=== PATIENT | female | born 1990 | race Caucasian/White ===

== ENCOUNTER 2023-05-11 20:37 | Emergency (ER) | payer OTHER, SELFPAY ==
[2023-05-11 21:01] VITALS: BP 138/91; PULSE 108; RESP 18; TEMP 36.2; O2SAT 97; BMI 28.3
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
[2023-05-11 21:25] LABS: Eosinophils Absolute Auto 0.41 K/uL (0.00-0.50); Hematocrit 43.6 % (33.0-51.0); Immature Granulocytes Abs Auto 0.01 K/uL (0.00-0.30); Immature Granulocytes Pct Auto 0.1 %; Lymphocytes Percent Auto 25.1 % (20-44); Mean Corpuscular HGB Conc 34 gm/dL (32-36); Mean Corpuscular Hemoglobin 29 pg (26-34); Mean Corpuscular Volume 85 fL (80-100); Neutrophils Percent Auto 63.8 % (42.0-72.0); Platelet Count* 322 K/uL (140-440); RDW Coefficient of Variation % 12.3 % (11.5-15.5); Red Blood Count 5.16 m/uL (4.00-5.20); White Blood Count* 10.34 K/uL (4.50-11.00)
[2023-05-11 21:27] LABS: Chloride* 106 mmol/L (96-114); Potassium* 3.7 mmol/L (3.6-5.1); Sodium* 137 mmol/L (135-149)
[2023-05-11 21:30] LABS: Anion Gap 8 mEq/L (7-15); Blood Urea Nitrogen* 5 mg/dL (5-24); Calcium* 9.9 mg/dL (8.4-10.6); Carbon Dioxide* 23 mmol/L (20-32); Creatinine* 0.8 mg/dL (0.5-1.5); Est. Creatinine Clearance* 89.16; Estimated Glomerular Filt Rate 99 ml/min; Glucose* 100 mg/dL (60-115)
[2023-05-11 21:36] LABS: Slide Review Reflex No
[2023-05-11] MEDS: 0.9 % SODIUM CHLORIDE 1000 ml 1,000 ML IV ×2 (22:27→23:16)
[2023-05-11] MEDS: ONDANSETRON 2 MG/ML inj 4 MG IVP (22:28)
[2023-05-11] MEDS: diphenhydrAMINE 50 MG/ML inj 25 MG IVP (22:28)
[2023-05-11] MEDS: MORPHINE 4 MG/ML INJ IVP (23:16)
== END 2023-05-12 | disposition home or self-care (01) ==
PROVIDERS: Emergency Provider Family Medicine
DX: O21.9 Vomiting of pregnancy, unspecified (principal); E86.0 Dehydration; G43.909 Migraine, unspecified, not intractable, without status migrainosus; Z3A.08 8 weeks gestation of pregnancy
CPT/HCPCS: 36415; 80048; 84702; 85025; 96361; 96374; 96375; 99284; J1200; J2270; J2405; J7030

== ENCOUNTER 2023-05-17 12:11 | Outpatient (CLI) | payer OTHER, SELFPAY ==
--- NOTE | 2023-05-17 12:15 | CRLHL7_ITS ---
For Patients: As a result of the Century Cures Act, medical imaging exams and procedure reports are released immediately into your electronic medical record. You may view this report before your referring provider. If you have questions, please contact your health care provider. INDICATION: First trimester scan, establish dates. COMPARISON: None. TECHNIQUE: Real-time kamara-scale imaging of the pelvis was performed. FINDINGS: Sonographic imaging demonstrates a single living intrauterine gestation. The embryo demonstrates a regular cardiac rate measuring 174 beats per minute. The embryo`s crown-rump length measurement of 2.1 cm corresponds to a gestational age of 8 weeks 5 days with a sonographic due date of 12/22/2023. There is a normal-appearing yolk sac. There are no gross abnormalities noted within the embryo at this early state of development. The gestational sac has a normal appearance. There is a 2.7 x 1.2 x 0.7 cm right-sided perigestational hemorrhage. The amount of fluid within the sac appears appropriate for gestational age. The cervix is closed. The myometrium appears normal. The right ovary is normal. The left ovary is not visualized. There are no suspicious fluid collections noted in the cul-de-sac. IMPRESSION: Single living intrauterine with sonographic gestational age 8 weeks 5 days and sonographic due date 12/22/2023. Subchorionic hemorrhage measuring 2.7 x 1.2 x 0.7 cm. Dictated by Robi Hutchinson MD @ 05/17/2023 12:56:05 PM (Electronically Signed)
== END 2023-05-17 12:12 | disposition home or self-care (01) ==
LOC: US 12:12
PROVIDERS: Visit Provider Registered Nurse
DX: Z34.91 Encounter for supervision of normal pregnancy, unspecified, first trimester (principal)
CPT/HCPCS: 76817

== ENCOUNTER 2023-05-17 13:57 | Outpatient (CLI) | payer OTHER, SELFPAY ==
[2023-05-17 19:14] LABS: Chlamydia DNA Amplified* NOT DETECTED (No Detected); GC DNA Amplified* NOT DETECTED (No Detected)
== END 2023-05-17 13:58 | disposition home or self-care (01) ==
PROVIDERS: Visit Provider Registered Nurse
DX: Z34.91 Encounter for supervision of normal pregnancy, unspecified, first trimester (principal); Z3A.08 8 weeks gestation of pregnancy
CPT/HCPCS: 86592; 86703; 86762; 86787; 86803; 86850; 86900; 86901; 87086; 87340; 87491; 87591

== ENCOUNTER 2023-05-31 14:14 | Outpatient (CLI) | payer OTHER, SELFPAY | END 2023-05-31 14:15 | disposition home or self-care (01) | LOC: FRMREF 14:16 | PROVIDERS: Visit Provider Registered Nurse | DX: R10.2 Pelvic and perineal pain (principal) | CPT/HCPCS: 87086 ==

== ENCOUNTER 2023-07-09 14:33 | Outpatient (CLI) | payer OTHER, SELFPAY | END 2023-07-09 14:34 | disposition home or self-care (01) | LOC: NFLDREF 07-13 12:12 | PROVIDERS: Visit Provider Obstetrics & Gynecology | DX: Z34.92 Encounter for supervision of normal pregnancy, unspecified, second trimester (principal); O09.812 Supervision of pregnancy resulting from assisted reproductive technology, second trimester; Z3A.16 16 weeks gestation of pregnancy | CPT/HCPCS: 82728 ==

== ENCOUNTER 2023-08-17 07:59 | Outpatient (CLI) | payer OTHER, SELFPAY | END 2023-08-17 08:00 | disposition home or self-care (01) | LOC: NFLDREF 08-20 00:42 | PROVIDERS: Visit Provider Obstetrics & Gynecology | DX: R79.0 Abnormal level of blood mineral (principal) | CPT/HCPCS: 82728 ==

== ENCOUNTER 2023-08-31 09:58 | Outpatient (CLI) | payer OTHER, SELFPAY ==
[2023-08-31 10:13] VITALS: PULSE 77; O2SAT 99
[2023-08-31 10:16] VITALS: BP 117/72; PULSE 76
[2023-08-31 10:18] LABS: Appearance Urine Clear (Clear); Bilirubin Urine Negative (Negative); Blood Urine Negative (Negative); Color Urine Yellow (Yellow); Glucose Urine Negative (Negative); Ketones Urine Negative (Negative); Leukocyte Esterase Urine Negative (Negative); Nitrite Urine Negative (Negative); Protein Urine Negative (Negative); Urobilinogen Urine 0.2 (0.2-1.0)
[2023-08-31 10:34] VITALS: RESP 16; TEMP 36.7
--- NOTE | 2023-08-31 11:48 | PC.OBNST ---
NST Note NST Note Start: 08/31/23 10:02 Freq: ONCE Status: Active Protocol: Document 08/31/23 11:45 MMB (Rec: 08/31/23 11:48 MMB [id number]) NST Note 1 Para (# of births) 0 EDC 12/23/23 Gestational Age In Weeks & Days 23 Weeks & 5 Days Patient Presented with Complaint(s) of Pain,Other If Pain, describe location sharp intermittent left lower abdominal pain Other Complaints Cramping, lower back pain Reactive No Appropriate for Gestational Age Yes RN Lidia Sterling RN Date 08/31/23 Reactive No Appropriate for Gestational Age Yes AMPARO Gardiner RN Date 08/31/23 OB NST charge Yes Complete NST Note via Write Note Yes The provider's electronic signature indicates the NST is reactive/appropriate for gestational age. *Note to provider: If an addendum is required, open the patient's chart and click on the note under the Nurse/Allied Health tab.
== END 2023-08-31 11:15 | disposition home or self-care (01) ==
LOC: OB OUT 09:58 → OB 09:59
PROVIDERS: Visit Provider Obstetrics & Gynecology
DX: O47.02 False labor before 37 completed weeks of gestation, second trimester (principal); Z3A.23 23 weeks gestation of pregnancy
CPT/HCPCS: 59025; 81003; G0463

== ENCOUNTER 2023-09-11 15:35 | Outpatient (CLI) | payer OTHER, SELFPAY ==
[2023-09-11] VITALS (13 sets, daily range): BP systolic 110; BP diastolic 57; PULSE 69–88; RESP 16; TEMP 37.1; O2SAT 96–99
[2023-09-11 16:13] LABS: Appearance Urine Cloudy (Clear); Bilirubin Urine Negative (Negative); Blood Urine Negative (Negative); Color Urine Yellow (Yellow); Glucose Urine Negative (Negative); Ketones Urine Negative (Negative); Leukocyte Esterase Urine Negative (Negative); Nitrite Urine Negative (Negative); Protein Urine Negative (Negative); Specific Gravity Urine 1.015 (1.000-1.030); Urobilinogen Urine 0.2 (0.2-1.0)
[2023-09-11 16:41] LABS: Amnisure Rom* Negative
[2023-09-11 16:45] LABS: Bacteria Urine Moderate; RBC Urine 0-2 (0-2); WBC Urine 0-2 (0-5)
[2023-09-11 16:46] LABS: Coarse Granular Casts Urine Few
[2023-09-11 16:52] LABS: Clue Cells No Clue Cells Seen (None Seen); Trichomonas No Trichomonas Seen (None Seen); Yeast No Yeast Seen (None Seen)
--- NOTE | 2023-09-11 17:50 | PC.OBNST ---
NST Note NST Note Start: 09/11/23 16:18 Freq: ONCE Status: Active Protocol: Document 09/11/23 17:47 MMB (Rec: 09/11/23 17:49 MMB [id number]) NST Note 1 Para (# of births) 0 EDC 12/23/23 Gestational Age In Weeks & Days 25 Weeks & 2 Days Patient Presented with Complaint(s) of Leaking fluid Reactive Yes Appropriate for Gestational Age Yes RN Lidia Sterling RN Date 09/11/23 Reactive Yes Appropriate for Gestational Age Yes RN Lidia Maldonado RN Date 09/11/23 OB NST charge Yes Complete NST Note via Write Note Yes The provider's electronic signature indicates the NST is reactive/appropriate for gestational age. *Note to provider: If an addendum is required, open the patient's chart and click on the note under the Nurse/Allied Health tab.
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
[2023-09-12 22:25] LABS: Strep B DNA Probe Negative (Negative)
[2023-09-13 06:05] LABS: Strep B Susceptibility Needed? No
== END 2023-09-11 17:15 | disposition home or self-care (01) ==
LOC: OB OUT 15:35 → OB 15:36
PROVIDERS: Visit Provider Obstetrics & Gynecology
DX: O47.02 False labor before 37 completed weeks of gestation, second trimester (principal); Z3A.25 25 weeks gestation of pregnancy
CPT/HCPCS: 59025; 81003; 81015; 84112; 87081; 87086; 87186; 87210; 87653; G0463

== ENCOUNTER 2023-09-13 13:30 | Outpatient (RCR) | payer OTHER, SELFPAY ==
--- NOTE | 2023-09-07 08:18 | URNOTE ---
Per Sherman Hopson at [facility], prior authorization is not required for Iron Sucrose ([id number]). Call ref #[id number]
[2023-09-11 13:19] VITALS: BP 108/71; PULSE 99; RESP 16; TEMP 36.1; O2SAT 97
[2023-09-11] MEDS: IRON SUCROSE COMPLEX 200 MG in 0.9 % SODIUM CHLORIDE 100 ml 100 ML 440 MG IVPB (13:57)
[2023-09-11 14:42] VITALS: BP 112/72; PULSE 85; RESP 16; TEMP 36.8; O2SAT 96
[2023-09-11 15:04] VITALS: BP 103/64; PULSE 77; RESP 16; TEMP 36.9; O2SAT 97
[2023-09-13 13:29] VITALS: BP 140/71; PULSE 102; RESP 17; TEMP 36.3; O2SAT 96
[2023-09-13] MEDS: IRON SUCROSE COMPLEX 200 MG in 0.9 % SODIUM CHLORIDE 100 ml 100 ML 220 MG IVPB (14:14)
[2023-09-13 14:20] VITALS: BP 105/75; PULSE 94; RESP 16; O2SAT 98
[2023-09-13 14:36] VITALS: BP 111/73; PULSE 85; RESP 16; O2SAT 97
[2023-09-13 14:45] VITALS: BP 130/84; PULSE 109; RESP 18; TEMP 36.2; O2SAT 98
[2023-09-13 15:00] VITALS: BP 104/72; PULSE 92; RESP 18; O2SAT 97
--- NOTE | 2023-09-13 16:14 | ONC.NURNOTE ---
Iron Sucrose started at 1414. At 1420, pt alerted nursing that she felt very dizzy, warm, and nauseated. Iron stopped and pt lying left lateral. VSS. Patricia Strickland APRN at bedside. NS started. Dr. Parker (OB masonry inspector) notified and orders received to discontinue Iron and not restart and for pt to make a follow up appt with her OB physician. At 1505, pt feeling nauseated again, dizzy, stating something feels wrong. After discussing pt symptoms with Patricia Vick APRN, Dr. Parker notified again and she advised pt to go to the OB dept for observation. Report called to OB and pt transferred via wheelchair with her father present.
== END 2024-03-09 23:59 | disposition home or self-care (01) ==
LOC: CCIC 13:30
PROVIDERS: Visit Provider Clinical Nurse Specialist
DX: D50.9 Iron deficiency anemia, unspecified (principal)
CPT/HCPCS: 96361; 96365; 96374; 99213; G0463; J1756

== ENCOUNTER 2023-09-13 15:21 | Outpatient (CLI) | payer OTHER, SELFPAY ==
[2023-09-13] VITALS (14 sets, daily range): BP systolic 103–112; BP diastolic 56–65; PULSE 71–95; RESP 16; TEMP 37.1; O2SAT 98–99
[2023-09-13] MEDS: LACTATED RINGERS 500 ML 500 ML IV (15:46)
--- NOTE | 2023-09-13 18:32 | PC.OBNST ---
The provider's electronic signature indicates the NST is reactive/appropriate for gestational age. *Note to provider: If an addendum is required, open the patient's chart and click on the note under the Nurse/Allied Health tab.
== END 2023-09-13 18:20 | disposition home or self-care (01) ==
LOC: OB OUT 15:25 → OB 15:27
PROVIDERS: Visit Provider Obstetrics & Gynecology
DX: O99.012 Anemia complicating pregnancy, second trimester (principal); Z3A.25 25 weeks gestation of pregnancy
CPT/HCPCS: 59025; G0463; J7120

== ENCOUNTER 2023-09-19 08:13 | Outpatient (CLI) | payer OTHER, SELFPAY | END 2023-09-19 08:14 | disposition home or self-care (01) | LOC: NFLDREF 09-21 07:37 | PROVIDERS: Visit Provider Obstetrics & Gynecology | DX: O23.42 Unspecified infection of urinary tract in pregnancy, second trimester (principal) | CPT/HCPCS: 87086 ==

== ENCOUNTER 2023-10-01 08:50 | Outpatient (CLI) | payer OTHER, SELFPAY | END 2023-10-01 08:51 | disposition home or self-care (01) | LOC: NFLDREF 10-03 10:07 | PROVIDERS: Visit Provider Obstetrics & Gynecology | DX: O26.893 Other specified pregnancy related conditions, third trimester (principal); Z67.11 Type A blood, Rh negative; Z3A.28 28 weeks gestation of pregnancy | CPT/HCPCS: 86592; 86850 ==

== ENCOUNTER 2023-10-08 08:52 | Outpatient (CLI) | payer OTHER, SELFPAY | END 2023-10-08 08:53 | disposition home or self-care (01) | LOC: NFLDREF 10:38 | PROVIDERS: Visit Provider Obstetrics & Gynecology | DX: Z34.03 Encounter for supervision of normal first pregnancy, third trimester (principal) | CPT/HCPCS: 82951; 82952 ==

== ENCOUNTER 2023-10-15 14:27 | Outpatient (CLI) | payer OTHER, SELFPAY | END 2023-10-15 14:28 | disposition home or self-care (01) | PROVIDERS: Visit Provider Obstetrics & Gynecology | DX: O24.419 Gestational diabetes mellitus in pregnancy, unspecified control (principal) | CPT/HCPCS: 87086 ==

== ENCOUNTER 2023-10-29 12:51 | Outpatient (CLI) | payer OTHER, SELFPAY ==
--- NOTE | 2023-10-29 13:00 | US_ITS ---
Final Report Patient: DAINA AVILA Facility:?[facility] Patient ID:?[id number] Site Patient ID:?[id number]. Site :?1990 Study:?US OB Pelvis f/u growth-10/29/2023 1:44:26 PM Ordering Physician:DARÍO Final Report: INDICATION: Third trimester scan, evaluate growth. COMPARISON: 05/17/2023 TECHNIQUE: Real time kamara scale imaging of the fetus was performed. FINDINGS: Sonographic imaging demonstrates a single living intrauterine gestation. Fetus demonstrates a regular cardiac rate of 129 beats per minute. Fetus has a vertex position. The placenta lies anteriorly. Amniotic fluid volume appears normal and there is a single deepest vertical pocket: 7.6 cm. The estimated weight is 2285gm which lies at the 89th %. BPD and HC< 97th percentile. AC 89th percentile. FL 29th percentile. The HC/AC ratio measures 1.10 range (0.93-1.11). IMPRESSION: Sonographic gestational age 35 weeks 0 days and sonographic due date 12/03/2023. Sonographic age 20 days ahead of the clinical age. Estimated weight 89th percentile. Abdominal circumference 89th percentile. BPD and HC greater than 97th percentile. Dictated by Robi Hutchinson MD @ 10/30/2023 7:35:33 AM (Electronic Signature)
== END 2023-10-29 12:52 | disposition home or self-care (01) ==
LOC: US 12:51
PROVIDERS: Visit Provider Obstetrics & Gynecology
DX: Z34.93 Encounter for supervision of normal pregnancy, unspecified, third trimester (principal); Z3A.35 35 weeks gestation of pregnancy
CPT/HCPCS: 76816

== ENCOUNTER 2023-11-27 10:53 | Outpatient (CLI) | payer OTHER, SELFPAY ==
--- NOTE | 2023-11-27 11:00 | US_ITS ---
Patient: DAINA AVILA Facility:?[facility] Patient ID:?[id number] Site Patient ID:?[id number]. Site :?1990 Study:?US-OB Pelvis OB F/U with BPP-11/27/2023 12:12:50 PM Ordering Physician:Jeni Sanford Final Report: OBSTETRICAL ULTRASOUND LIMITED - BIOPHYSICAL PROFILE, 11/27/2023 INDICATION: Advanced maternal age, gestational diabetes mellitus. PA by LMP: 12/23/2023 Gestational age: 36 weeks 2 days COMPARISON: 10/29/2023 TECHNIQUE: Transabdominal obstetrical ultrasound. FINDINGS: Gestation: Single Cervix: Not visualized positioning: Vertex Amniotic fluid: 7.4 cm SDP BIOPHYSICAL PROFILE: Gross body movements: 2 tone: 2 Respiratory activity: 2 Amniotic fluid SDP: 2 Total score: 8/8 Placenta position: Anterior heart rate: 144 bpm BIOMETRY: BPD: 9.87 cm, 40 weeks 3 days, >97% HC: 36.35 cm, out of range, >97% AC: 34.86 cm, 38 weeks 5 days, >97% FL: 7.06 cm, 36 weeks 1 day, 47.7% FL/AC Ratio: 20.25% HC/AC ratio: 1.04 EFW: grams, 8 lbs. 0 oz. age by this ultrasound: 38 weeks 3 days PA by this US: 12/08/2023 Percentile by PA: >97% IMPRESSION: 1. Estimated weight is greater than the 97th percentile. 2. Biophysical profile score is 8/8. OVIDIO GRIFFITH M.D. Body/Diagnostic Radiologist [email or web address]:gloria D& Transcribed: 11:[address]/Dictated by: Ovidio Griffith MD @ 11/28/2023 9:33:00 AM Signed by:Tameka Griffith MD @11/28/2023 12:27:04 PM (Electronic Signature)
== END 2023-11-27 10:54 | disposition home or self-care (01) ==
LOC: US 10:53
PROVIDERS: Visit Provider Obstetrics & Gynecology
DX: O09.513 Supervision of elderly primigravida, third trimester (principal); O24.419 Gestational diabetes mellitus in pregnancy, unspecified control; Z3A.36 36 weeks gestation of pregnancy
CPT/HCPCS: 76816; 76819

== ENCOUNTER 2023-11-27 13:14 | Outpatient (CLI) | payer OTHER, SELFPAY ==
[2023-11-28 14:13] LABS: Strep B DNA Probe Negative (Negative)
[2023-11-28 14:23] LABS: Strep B Susceptibility Needed? No
== END 2023-11-27 13:15 | disposition home or self-care (01) ==
LOC: NFLDREF 13:15
PROVIDERS: Visit Provider Obstetrics & Gynecology
DX: Z34.03 Encounter for supervision of normal first pregnancy, third trimester (principal)
CPT/HCPCS: 87081; 87653

== ENCOUNTER 2023-12-04 12:58 | Outpatient (CLI) | payer OTHER, SELFPAY ==
--- NOTE | 2023-12-04 13:00 | US_ITS ---
Patient: DAINA AVILA Facility:?[facility] Patient ID:?[id number] Site Patient ID:?[id number]. Site :?1990 Study:?US-OB Pelvis OB BPP-12/04/2023 1:45:12 PM Ordering Physician:?GREG SHEPHERD M.D. Final Report: INDICATION: Gestational diabetes COMPARISON: 11/27/2023 TECHNIQUE: Real time kamara scale imaging of the fetus was performed. Without non-stress testing. FINDINGS: Sonographic imaging demonstrates a single living intrauterine gestation. Fetus demonstrates a regular cardiac rate of 173 beats per minute. Fetus has a vertex position. The amniotic fluid volume appears normal and there is a single deepest pocket measurement of 7.5 cm. The fetus was active and demonstrated normal breathing movements. There was normal flexion and extension of the trunk and extremities. IMPRESSION: Normal biophysical profile score of 8 out of 8. Dictated by Robi Hutchinson MD @ 12/06/2023 5:47:21 AM Signed by:?Robi Hutchinson MD @12/06/2023 5:47:21 AM (Electronic Signature)
== END 2023-12-04 12:59 | disposition home or self-care (01) ==
LOC: US 12:58
PROVIDERS: Visit Provider Obstetrics & Gynecology
DX: O24.419 Gestational diabetes mellitus in pregnancy, unspecified control (principal)
CPT/HCPCS: 76819

== ENCOUNTER 2023-12-09 12:23 | Outpatient (CLI) | payer OTHER, SELFPAY ==
[2023-12-09 12:36] VITALS: BP 124/73; PULSE 93
[2023-12-09 14:00] VITALS: RESP 18; TEMP 36.9
--- NOTE | 2023-12-09 18:58 | PC.OBNST ---
NST Note NST Note Start: 12/09/23 12:39 Freq: ONCE Status: Active Protocol: Document 12/09/23 15:15 Asad (Rec: 12/09/23 18:58 MILKA [id number]) NST Note 1 Para (# of births) 0 EDC 12/23/23 Gestational Age In Weeks & Days 38 Weeks & 0 Days Patient Presented with Complaint(s) of Contractions/cramping Reactive Yes Appropriate for Gestational Age Yes RN Mariah Mathur RN Date 12/09/23 Reactive Yes Appropriate for Gestational Age Yes AMPARO Xie RN Date 12/09/23 OB NST charge Yes Complete NST Note via Write Note Yes The provider's electronic signature indicates the NST is reactive/appropriate for gestational age. *Note to provider: If an addendum is required, open the patient's chart and click on the note under the Nurse/Allied Health tab.
== END 2023-12-09 15:15 | disposition home or self-care (01) ==
LOC: OB OUT 12:24 → OB 12:24
PROVIDERS: Visit Provider Obstetrics & Gynecology
DX: O47.1 False labor at or after 37 completed weeks of gestation (principal); Z3A.38 38 weeks gestation of pregnancy
CPT/HCPCS: 59025; G0463

== ENCOUNTER 2023-12-14 11:00 | Outpatient (CLI) | payer OTHER, SELFPAY ==
--- NOTE | 2023-12-14 11:00 | US_ITS ---
Patient: DAINA AVILA Facility:?[facility] Patient ID:?[id number] Site Patient ID:?[id number]. Site :?1990 Study:?US-OB Pelvis OB BPP & F/U GROWTH-12/14/2023 12:16:23 PM Ordering Physician:?CHRISTINA MIKE M.D. Final Report: INDICATION: Gestational diabetes TECHNIQUE: Real time kamara scale imaging of the fetus was performed. COMPARISON: 11/27/2023 FINDINGS: Sonographic imaging demonstrates a single living intrauterine gestation. Fetus demonstrates a regular cardiac rate of 134 beats per minute. Fetus has a vertex position. The placenta lies posterior. Amniotic fluid volume appears increased and there is a single deepest pocket of 10.3 cm. ELIDA 32.8 cm. The estimated weight is 4924gm which lies at the greater than 97th %. On the prior OB ultrasound dated 11/27/2023 the estimated weight was at the greater than 97th percentile. BPD, HC and AC greater than 97th percentile. FL 77th percentile. The fetus was active. Absent normal breathing movements. There was normal flexion and extension of the trunk and extremities. IMPRESSION: Biophysical profile 02/01. Polyhydramnios. Sonographic gestational age 39 weeks 4 days and sonographic due date of 12/17/2023. Sonographic age is 6 days ahead of the clinical age. Estimated weight greater than 97th percentile, 10 pounds 14 ounces. BPD/HC/AC greater than 97th percentile. Dictated by Robi Hutchinson MD @ 12/14/2023 12:47:08 PM Signed by:?Robi Hutchinson MD @12/14/2023 12:47:08 PM (Electronic Signature)
== END 2023-12-14 11:01 | disposition home or self-care (01) ==
LOC: US 11:01
PROVIDERS: Visit Provider Obstetrics & Gynecology
DX: O24.419 Gestational diabetes mellitus in pregnancy, unspecified control (principal); Z3A.39 39 weeks gestation of pregnancy
CPT/HCPCS: 76816; 76819

== ENCOUNTER 2023-12-17 05:18 | Inpatient (IN) | payer OTHER, SELFPAY ==
[2023-12-17] VITALS (38 sets, daily range): BP systolic 100–128; BP diastolic 61–87; PULSE 53–88; RESP 16–18; TEMP 36.3–36.8; O2SAT 95–100; BMI 31.5
[2023-12-17] MEDS: LACTATED RINGERS 1000 ML 1,000 ML IV ×2 (05:45→07:10)
[2023-12-17 06:11] LABS: Hemoglobin* 12.3 gm/dL (12.0-16.0)
[2023-12-17 06:22] LABS: Hematocrit 38.1 % (33.0-51.0); Mean Corpuscular HGB Conc 32 gm/dL (32-36); Mean Corpuscular Hemoglobin 27 pg (26-34); Mean Corpuscular Volume 84 fL (80-100); Platelet Count* 208 K/uL (140-440); Red Blood Count 4.55 m/uL (4.00-5.20); White Blood Count* 9.67 K/uL (4.50-11.00)
[2023-12-17 06:23] LABS: Slide Review Reflex No
[2023-12-17] MEDS: CEFAZOLIN 2 GM INJ IVP (08:25)
--- NOTE | 2023-12-17 09:45 | W.ANESCHARGE ---
Anesthesia Charges Start Date/Time Anesthesia Start Date: 12/17/23 Anesthesia Start Time: 08:11 Stop Date/Time Anesthesia Stop Date: 12/17/23 Anesthesia Stop Time: 09:44
--- NOTE | 2023-12-17 10:02 | P.NB_ITS ---
Nerve Block Nerve Block Time Seen by Provider: 09:33 Date Seen: 12/17/23 Type of block requested by surgeon for post-operative analgesia: TAP Side: bilateral Time out performed: Yes Verification of patient name: Yes Verification of date of : Yes Site marking: site marked Name of person performing procedure: Dileep Continuous monitoring Was continuous monitoring of O2 sat, B/P, vehicle monitor technician, recorded every 15 minutes?: Yes Procedure Checklist: sterile prep, needles and gloves Ultrasound guided. Images saved: Yes Medications given in 5ml increments after negative aspiration: Marcaine %: 0.25 mL: 30 Needle gauge: 20 and Exparel mL: 10 Patient tolerated procedure well: Yes Additional comments: Needle noted between internal oblique and transversus abdominus. Local spread visualized Block Charges Block Charge (with Pro Fee): TAP Bilateral Use of Ultrasound Machine for Block: Yes- US Guidance/pain block
--- NOTE | 2023-12-17 10:03 | W.ANESCHARGE ---
Anesthesia Charges Start Date/Time Anesthesia Start Date: 12/17/23 Anesthesia Start Time: 08:11 Stop Date/Time Anesthesia Stop Date: 12/17/23 Anesthesia Stop Time: 09:44
[2023-12-17] MEDS: METHYLERGONOVINE MALEATE 0.2 MG/ML INJ IM (10:54)
[2023-12-17] MEDS: miSOPROStoL 800 MCG/4 TABLET PR (11:00)
[2023-12-17] MEDS: ONDANSETRON 2 MG/ML inj 4 MG IVP ×2 (11:40→16:27)
[2023-12-17] MEDS: LACTATED RINGERS 1000 ML 1,000 ML 125 ML IV ×2 (12:01→20:19)
[2023-12-17] MEDS: SCOPOLAMINE 1 MG/3 DAY PATCH 1 PATCH TRANSDERMA (12:36)
[2023-12-17 12:59] LABS: Basophils Percent Auto 0.1 % (0.0-3.0); Eosinophils Percent Auto 0.1 % (0.0-7.0); Hematocrit 36.7 % (33.0-51.0); Immature Granulocytes Pct Auto 1.1 %; Lymphocytes Percent Auto 3.9 % (20-44); Mean Corpuscular HGB Conc 33 gm/dL (32-36); Mean Corpuscular Hemoglobin 27 pg (26-34); Mean Corpuscular Volume 84 fL (80-100); Monocytes Percent Auto 4.7 % (0.0-11.0); Neutrophils Percent Auto 90.1 % (42.0-72.0); Platelet Count* 191 K/uL (140-440); RDW Coefficient of Variation % 13.8 % (11.5-15.5); Red Blood Count 4.38 m/uL (4.00-5.20); White Blood Count* 19.34 K/uL (4.50-11.00)
[2023-12-17 13:03] LABS: Slide Review Reflex No
[2023-12-17] MEDS: ACETAMINOPHEN 500 MG TABLET 1000 MG PO ×2 (14:37→22:49)
[2023-12-17] MEDS: KETOROLAC 30 MG/ML inj IVP ×2 (15:31→21:19)
[2023-12-17] MEDS: SODIUM CHLORIDE 0.9 % (FLUSH) 10 ML SYRINGE IVF (15:32)
--- NOTE | 2023-12-17 17:33 | P.OBPRC_ITS ---
Procedure Date of procedure: 12/17/23 Pre-op diagnosis: 39 weeks gestation. Gestational diabetes. Suspected macrosomia with EFW 4924 g last week Post-op diagnosis: same Procedure Done: Global Will [facility] bill your pro fee for this procedure?: Yes Blood Loss Measurement Type: EBL (500) Bakri Used: No IV fluids (mL): 1,000 Surgeon: Alba Syed MD Anesthesia Type: Spinal and TAP Block Findings: 1. Male infant, cephalic OA presentation, Apgars of 8 and 8, weight 4330 g. 2. Normal appearance of uterus, bilateral tubes and ovaries. Procedure Name: Primary low-transverse section Procedure Description: Patient was taken to the operating room with IV running. She received cefazolin in preoperative prophylaxis. Spinal anesthesia was administered. Hernandez catheter was inserted. She was prepped and draped in the usual sterile fashion. Anesthesia was tested and found to be adequate. A low-transverse skin incision was made with a scalpel and carried through to the underlying layer of fascia with the scalpel. The subcutaneous fat was dissected off the underlying fascia with Bovie. The fascia was nicked in the midline with a scalpel, and this incision was extended laterally with scissors. The rectus muscles were in the midline. Peritoneum was identified and entered bluntly. Bovie was used to widen this opening laterally. The bladder reflection was found to be well below the planned site for hysterotomy. Low-transverse uterine incision was made with a scalpel. Incision was widened bluntly. The infant's head was grasped through the hysterotomy and delivered with the help of fundal pressure. The remainder of the body delivered without incident. Cord was clamped and cut after 30 seconds. Infant was handed off to attending nurses. Cord blood was collected. The placenta was delivered with gentle traction on the cord. The uterus was exteriorized and cleaned of all clots and debris with the dry lap pad. The hysterotomy was reapproximated with 0 Vicryl in a running, locked fashion. Additional sutures were required along the leftward aspect of the hysterotomy, where there was a superficial hematoma, to obtain hemostasis. An additional [id number]-[id number] suture was used near the rightward aspect of the hysterotomy as well. The adnexa were examined and noted to be normal in appearance. The cul-de-sac was cleansed with dampened laparotomy sponge and the uterus was returned to the abdomen. The gutters were cleansed with dampened laparotomy sponge, removing any further clots and debris. The hysterotomy was reexamined and found to be hemostatic. The peritoneum was reapproximated with 2 0 Vicryl in a running fashion. The rectus muscles were examined and found to be hemostatic. The fascia was reapproximated with 0 Vicryl in a running fashion. Subcutaneous fat was irrigated and Bovie used on oozing vessels. The subcutaneous fat was reapproximated with 2 0 plain gut suture in an interrupted fashion. The skin was closed with a subcuticular stitch of 4-0 Monocryl. Surgical glue was applied above this. Patient tolerated procedure well was taken to recovery area in stable condition. Complications: None Pathology: specimen obtained, sent to pathology (Placenta) Surgery Debrief Performed: Yes Surgery Debrief Comment: Verbal did brief performed after completion of cesareans, confirming pathology specimen to be sent Condition: stable Disposition: floor Infant total score - 1 minute: 8 total score - 5 minute: 8
[2023-12-18] VITALS (12 sets, daily range): BP systolic 95–97; BP diastolic 59–62; PULSE 63–70; RESP 15–16; TEMP 36.8; O2SAT 96–98
[2023-12-18] MEDS: hydrOXYzine pamoate 25 MG CAPSULE 100 MG PO (01:12)
[2023-12-18] MEDS: KETOROLAC 30 MG/ML inj IVP ×3 (03:49→15:15)
[2023-12-18] MEDS: ACETAMINOPHEN 500 MG TABLET 1000 MG PO ×4 (04:28→23:08)
[2023-12-18 06:19] LABS: Hemoglobin* 9.2 gm/dL (12.0-16.0)
[2023-12-18] MEDS: SODIUM CHLORIDE 0.9 % (FLUSH) 10 ML SYRINGE IVF (09:46)
[2023-12-18] MEDS: DOCUSATE SODIUM 100 MG CAPSULE PO (09:46)
--- NOTE | 2023-12-18 11:30 | PM.OBPNVD1 ---
OB - PN:Subj Subjective Date Seen: 12/18/23 Patient comments OB post-: no complaints, pain well controlled, tolerating diet and flatus present [place] status: and doing well [place] feeding status: exclusively Narrative: Oneida is a 33 y.o. who was admitted to [facility] & D for primary C/S for suspected macrosomia.? She had an uncomplicated primary .? ? The patient feels well.? The pain is well controlled with current medications.? She has no new complaints.? She is breast feeding and reports things are going well.? the patient has done well.?She did have significant nausea and vomiting after her surgery but feels better this morning and has been able to eat breakfast. Vitals have been stable.? She has remained afebrile.? Has a good appetite, is tolerating a general diet.? She is voiding without difficulty.? She is passing gas and has not had a bowel movement.? She is ambulating and denies any dizziness.? Has Small amount of rubra lochia.? OB - PN: Obj Exam Physical Exam: Vital signs: Temp Pulse Resp BP Pulse Ox O2 Del Method 98.3 F 63 16 95/59 L 97 Room Air 12/18/23 08:13 12/18/23 08:13 12/18/23 08:13 12/18/23 08:13 12/18/23 03:45 12/18/23 08:13 Narrative: GENERAL APPEARANCE:? normal affect, alert, no distress MOOD:? appropriate CHEST:? clear to auscultation HEART:? regular rate and rhythm ABDOMEN:? soft, non-tender the uterine fundus is firm1 cm below Umbilicus, Midline and is appropriate for the stage of recovery. EXTREMITIES:? normal and trace edema Incision: Dressing is clean dry and intact. Urinary Catheter Management: Urethral: Cath placed during this visit: yes, but has since been removed by the nurse Reason for continuing: decision to DC catheter Insertion date: 12/17/23 Insertion time: 08:25 Removal date: 12/18/23 Removal time: 04:30 OB - PN: Obj Data Labs Labs: Laboratory Results - last 24 hr 12/17/23 12/17/23 12/18/23 05:58 12:48 06:06 WBC 19.34 H RBC 4.38 Hgb 12.0 9.2 L Hct 36.7 MCV 84 MCH 27 MCHC 33 RDW Coeff of Yessica 13.8 Plt Count 191 Neut % (Auto) 90.1 H Lymph % (Auto) 3.9 L [place] % (Auto) 4.7 Eos % (Auto) 0.1 Baso % (Auto) 0.1 Neut # (Auto) 17.40 H Lymph # (Auto) 0.80 L [place] # (Auto) 0.90 Eos # (Auto) 0.00 Baso # (Auto) 0.00 Abs Immat Gran (auto) 0.20 Imm/Tot Granulo (auto) 1.1 Antibody Identification Anti-D OB - PN: A/P Delivery Assessment and Plan (1) care and examination immediately after delivery: Status: Acute (2) Lactating mother: Status: Acute (3) Acute anemia: Status: Acute Plan day: 1 Plan: routine care Comments: Assessment/Plan?G 1 P 1 status post uncomplicated primary .? ?? 1.? Continue route PP cares? 2.? .? May see if desired? 3.? Anticipate discharge home tomorrow or the following day per pt preference? 4.? Acute anemia.? Iron supplement ordered?
[2023-12-18] MEDS: FLUOXETINE HCL 20 MG CAPSULE PO (15:46)
--- NOTE | 2023-12-18 18:18 | PC.NURSE ---
shift note: pt showered and ambulated in [place] with family. pt had small amount of lochia rubra on pad prior to shower. No clots noted on assessment. Fundus massaged and brought back to below umbilicus. Ky's sign negative. pt rating abd pain 3-6/10. pt describes pain as a burning. pt medicated with toradol and tylenol with relief. Pt voiding and passing flatus. IV dc'd intact Rt FA
[2023-12-18] MEDS: IBUPROFEN 600 MG TABLET PO (21:41)
[2023-12-18] MEDS: polyethylene glycoL 3350 17 GM PACK PO (21:55)
[2023-12-19 00:32] LABS: Rapid Plasma Reagin (RPR) Non Reactive (Non Reactive)
[2023-12-19] MEDS: OXYCODONE 5 MG TABLET PO ×3 (01:54→21:36)
[2023-12-19 02:29] VITALS: BP 100/66; PULSE 81; RESP 16; O2SAT 99
[2023-12-19] MEDS: IBUPROFEN 600 MG TABLET PO ×3 (04:01→17:53)
[2023-12-19 07:36] LABS: Glucose 2 Hour 147 mg/dl (70-155)
[2023-12-19] MEDS: SIMETHICONE 80 MG TAB.CHEW PO (07:39)
[2023-12-19] MEDS: ACETAMINOPHEN 500 MG TABLET 1000 MG PO ×3 (07:39→19:28)
--- NOTE | 2023-12-19 07:39 | P.OBPN_ITS ---
OB - PN:Subj Subjective Date Seen: 12/19/23 Patient comments OB post-: no complaints, pain well controlled, tolerating diet and flatus present [place] status: and doing well [place] feeding status: exclusively Narrative: The patient feels well.? The pain is well controlled with current medications.? She has no new complaints.? Urinary output is adequate and she is voiding w ithout difficulty.? Has a good appetite, is tolerating a general diet, is passing flatus, and has not had a bowel movement.?She is requesting simethicone as she feels she is not passing as much as previously. Has scant amount of rubra lochia.? She is ambulating well.?She is and working with the nurses to work on a better latch. Plans to see today. She plans to discharge tomorrow. She is anemic but declines oral iron as she states that in it caused nausea and vomiting. She is feeling occasionally light headed but feels that it could be related to lack of sleep. Encouraged to increase iron rich food and discussed that could consider IV iron if symptoms increase or do not resolve. OB - PN: Obj Exam Physical Exam: Vital signs: Temp Pulse Resp BP Pulse Ox O2 Del Method 98.2 F 81 16 100/66 99 Room Air 12/18/23 15:24 12/19/23 02:29 12/19/23 02:29 12/19/23 02:29 12/19/23 02:29 12/19/23 02:29 Narrative: GENERAL APPEARANCE:? normal affect, alert, no distress? MOOD:? appropriate? CHEST:? clear to auscultation and percussion? HEART:? regular rate and rhythm? ABDOMEN:? soft, non-tender the uterine fundus is U/2 and is appropriate for the stage of recovery.? EXTREMITIES:? normal and no edema? Urinary Catheter Management: Urethral: Cath placed during this visit: yes, but has since been removed by the nurse Reason for continuing: decision to DC catheter Insertion date: 12/17/23 Insertion time: 08:25 Removal date: 12/18/23 Removal time: 04:30 OB - PN: Obj Data Labs Labs: Laboratory Results - last 24 hr 12/17/23 12/19/23 05:58 07:06 Glucose Tolerance RPR Screen Non Reactive OB - PN: A/P Delivery Assessment and Plan (1) care and examination immediately after delivery: Status: Acute (2) Lactating mother: Status: Acute (3) Acute anemia: Status: Acute Plan day: 1 Plan: routine care Comments: Anticipate discharge tomorrow.
[2023-12-19] MEDS: FLUOXETINE HCL 20 MG CAPSULE PO (07:40)
[2023-12-19] MEDS: DOCUSATE SODIUM 100 MG CAPSULE PO (07:40)
[2023-12-19 08:00] VITALS: BP 104/68; PULSE 73; RESP 16; O2SAT 98
[2023-12-19 14:06] VITALS: BP 98/66; PULSE 73; RESP 16; TEMP 36.8; O2SAT 98
[2023-12-19 18:19] VITALS: BP 121/76; PULSE 72; RESP 16; TEMP 36.4; O2SAT 99
[2023-12-19] MEDS: polyethylene glycoL 3350 17 GM PACK PO (19:38)
[2023-12-20 00:09] VITALS: BP 118/78; PULSE 84; RESP 20; TEMP 36.8; O2SAT 96
[2023-12-20] MEDS: IBUPROFEN 600 MG TABLET PO ×2 (00:13→06:38)
[2023-12-20] MEDS: ACETAMINOPHEN 500 MG TABLET 1000 MG PO (04:48)
[2023-12-20 04:55] VITALS: BP 110/71; PULSE 71; RESP 18; TEMP 36.4; O2SAT 98
[2023-12-20] MEDS: DOCUSATE SODIUM 100 MG CAPSULE PO (06:37)
[2023-12-20] MEDS: FLUOXETINE HCL 20 MG CAPSULE PO (06:38)
--- NOTE | 2023-12-20 08:25 | P.DS_ITS ---
DS: Providers Provider Date Seen: 12/20/23 Date of admission: 12/17/23 05:18 Primary care physician: Not a Local Provider Admitting Clinician: Alba Syed MD Attending Physician on discharge: Dee Black CNM Date of Discharge: 12/20/23 DS: Diagnosis Discharge Diagnosis (1) Lactating mother: Status: Acute (2) care and examination immediately after delivery: Status: Acute (3) Acute anemia: Status: Acute Exam Narrative: Exam Narrative: VSS. ?Afebrile GENERAL APPEARANCE: ?normal affect, alert, no distress MOOD: ?appropriate HEENT: normocephalic, neck supple, full ROM CHEST: ?Symmetrical chest wall movement. ?Normal respiratory effort. ?Clear to auscultation HEART: ?regular rate and rhythm ABDOMEN: ?soft, non-tender. Uterine fundus is firm, at Umbilicus, Midline and is appropriate for the stage of recovery. ?Bowel sounds present. EXTREMITIES: ?normal and no edema SKIN: warm, dry. ? ?Incision clean/dry/well approximated. ?No signs of infection noted. Const: Vital Signs, click to edit/add: Vital Signs - 24 hr 12/19/23 14:06 12/19/23 18:19 12/20/23 00:09 Temperature 98.2 F 97.5 F L 98.2 F Pulse Rate [Pulse Oximeter] 73 72 84 Respiratory Rate 16 16 20 Blood Pressure [Le ft Arm] 98/66 121/76 118/78 Pulse Oximetry 98 99 96 Oxygen Delivery Me thod Room Air Room Air Room Air 12/20/23 04:55 Temperature 97.5 F L Pulse Rate [Pulse Oximeter] 71 Respiratory Rate 18 Blood Pressure [Le ft Arm] 110/71 Pulse Oximetry 98 Oxygen Delivery Me thod Room Air Documenting provider has reviewed patient's vital signs: yes OB - DS: Summary Hospital Course Hospital Course: Oneida is a 33 y.o. who was admitted to [facility] & [facility] for primary C/S for suspected macrosomia. ?She had an uncomplicated .?The patient feels well. ?The pain is well controlled with current medications. ?She has no new complaints. ?She is breast feeding and reports things are going well.? the patient has done well.? Vitals have been stable.? She has remained afebrile.? Has a good appetite, is tolerating a general diet. ?She is voiding without difficulty.? She is passing gas and has not had a bowel movement.? She is ambulating and denies any dizziness.? Has Small amount of rubra lochia. ?She is planning nothing for prevention. Peripartum Data delivery method: Primary C/S; Non-Labored Procedures: Procedures Operation Date: 12/17/23 07:15 Actual Procedure Side Surgeon p Primary Section Not Applicable Alba Syed MD complications: none [place] Gender: Male Infant Discharge Plan: Home Status at Discharge Functional status at discharge: independent ambulation Overall status at discharge: patient is progressing back to baseline Time Spent with Patient Time attestation: Total time spent providing and/or coordinating discharge services: Time spent: Less than 30 minutes Discharge Plan Discharge Disposition: Home, Self-Care Date of Admission: 12/17/23 05:18 Attending Provider on Discharge: Dee Black Primary Care Provider: Provider,Not a Local Condition: Stable Anticipated Discharge Date/Time: 12/20/23 12:00 Discharge Medications: New docusate sodium 100 mg Capsule 100 mg PO DAILY Qty: 90 2RF polyethylene glycol 3350 [Miralax] 17 gram Powder In Packet 17 g PO DAILY PRNQty: 15 0RF ibuprofen 600 mg Tablet 600 mg PO Q6H PRN (Reason: Pain) Qty: 60 0RF oxycodone 5 mg Tablet 5 - 10 mg PO Q4H PRN (Reason: Pain) Qty: 10 0RF acetaminophen 500 mg Tablet 1,000 mg PO Q6H PRN (Reason: pain/fever) Qty: 0 0RF Continued [place] DHA 312-250-18 mg capsule 1 cap PO QHS omega 3-yvq-afk-fish oil [Fish Oil] 300-1,000 mg capsule 1 cap PO QDAY calcium carbonate [Tums] 200 mg calcium (500 mg) tablet,chewable 200 mg PO BID polyethylene glycol 3350 [Miralax] 17 gram/dose powder 4 g PO ONCE fluoxetine [Prozac] 20 mg capsule 20 mg PO QDAY [id number] [Fioricet] 50-300-40 mg capsule 1 - 2 cap PO Q4-6H PRN (Reason: headache) Qty: 20 0RF Rx Instructions: not to take more than 6 tabs in 24 hours famotidine 20 mg tablet 20 mg PO DAILY Discontinued (DME) Test Strips Misc See Rx Instructions .MEDSUPPLY Qty: 100 3RF Rx Instructions: Test blood sugar 4 times daily. (DME) lancets Misc See Rx Instructions .MEDSUPPLY Qty: 100 3RF Rx Instructions: Test blood sugar 4 times daily. (DME) Blood Glucose Meter Misc See Rx Instructions .MEDSUPPLY Qty: 1 0RF Rx Instructions: As directed Discharge Orders: Discharge Order (Routine); Ordered 12/20/23 Ordered By: Dee Black Patient Education: OB Over the Counter Medication Information, OB /Breast Feeding Additional Instructions: Discharge instructions were reviewed with the patient including signs and symptoms of infection and home going medications Lifting Restrictions: 20 pounds for 6 weeks No not submerge incision under water X 2 weeks? Nothing vaginally for 6 weeks: no tampons or intercourse Do not drive while taking narcotic pain medication(s) Off Work or School for 8 weeks 2-week visit: incision check, discuss feeding concerns, review control options and screen for anxiety/depression. -week visit for an annual exam. consultation services are available to all mothers and babies for the first year after delivery.? To make an appointment, please call [phone]. Activity Level: Activity as Tolerated Discharge Diet: Regular Follow Up Appointments: Provider,Not a Local [Primary Care Provider] - [facility] [Provider Group] Forms: [employer] Info Instructions
[2023-12-20 09:42] VITALS: BP 109/69; PULSE 68; RESP 22; TEMP 36.4
[2023-12-20 10:00] VITALS: O2SAT 97
[2023-12-20] MEDS: OXYCODONE 5 MG TABLET PO (11:19)
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
== END 2023-12-20 13:20 | disposition home or self-care (01) | DRG 788 ==
PROVIDERS: Advanced Practice Midwife; Admitting Provider Obstetrics & Gynecology; Visit Provider Obstetrics & Gynecology
PROC: 10D00Z1 Extraction of Products of Conception, Low, Open Approach (ICD-10-PCS; CPT 59514; principal; 2023-12-17 07:15)
DX: O24.429 Gestational diabetes mellitus in childbirth, unspecified control (principal); Z3A.39 39 weeks gestation of pregnancy; Z37.0 Single live birth; O36.63X0 Maternal care for excessive fetal growth, third trimester, not applicable or unspecified; G89.18 Other acute postprocedural pain; O99.02 Anemia complicating childbirth; D64.9 Anemia, unspecified
CPT/HCPCS: 01961; 36415; 64488; 76942; 82947; 82950; 82962; 85018; 85025; 85027; 86592; 86850; 86870; 86880; 86900; 86901; 88307; A9270; C9290; J0665; J0690; J1100; J1885; J2210; J2274; J2310; J2371; J2405; J2590; J7120

== ENCOUNTER 2023-12-23 04:06 | Emergency (ER) | payer OTHER, SELFPAY ==
[2023-12-23 04:24] VITALS: BP 132/82; PULSE 88; RESP 16; TEMP 36.8; O2SAT 96
[2023-12-23 04:30] LABS: Appearance Urine Clear (Clear); Bilirubin Urine Negative (Negative); Blood Urine 1+ (Negative); Color Urine Yellow (Yellow); Glucose Urine Negative (Negative); Ketones Urine Negative (Negative); Leukocyte Esterase Urine Negative (Negative); Nitrite Urine Negative (Negative); Protein Urine Negative (Negative); Specific Gravity Urine 1.015 (1.000-1.030); Urobilinogen Urine 0.2 (0.2-1.0)
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
[2023-12-23 04:34] LABS: Squamous Epithelial Cell Urine Few (None-Few); WBC Urine 0-2 (0-5)
[2023-12-23 04:45] LABS: Lactate Sepsis w/Reflex* 0.7 mmol/L (0.5-1.9)
[2023-12-23 04:48] LABS: Basophils Absolute Auto 0.02 K/uL (0.00-0.30); Basophils Percent Auto 0.3 % (0.0-3.0); Eosinophils Percent Auto 2.8 % (0.0-7.0); Hematocrit 32.9 % (33.0-51.0); Hemoglobin* 10.4 gm/dL (12.0-16.0); Immature Granulocytes Abs Auto 0.07 K/uL (0.00-0.30); Lymphocytes Absolute Auto 1.52 K/uL (0.90-2.90); Lymphocytes Percent Auto 21.2 % (20-44); Mean Corpuscular HGB Conc 32 gm/dL (32-36); Mean Corpuscular Hemoglobin 27 pg (26-34); Mean Corpuscular Volume 86 fL (80-100); Monocytes Percent Auto 7.9 % (0.0-11.0); Neutrophils Percent Auto 66.8 % (42.0-72.0); Platelet Count* 294 K/uL (140-440); RDW Coefficient of Variation % 13.8 % (11.5-15.5); Red Blood Count 3.84 m/uL (4.00-5.20); White Blood Count* 7.18 K/uL (4.50-11.00)
[2023-12-23 04:52] LABS: Slide Review Reflex No
[2023-12-23 05:00] LABS: Albumin* 3.3 g/dL (3.3-5.0); Chloride* 112 mmol/L (96-114)
[2023-12-23 05:01] LABS: Potassium* 3.6 mmol/L (3.6-5.1); Sodium* 138 mmol/L (135-149)
[2023-12-23 05:03] LABS: Creatinine* 0.5 mg/dL (0.5-1.5); Estimated Glomerular Filt Rate 125 ml/min
[2023-12-23 05:04] LABS: Alanine Aminotransferase* 42 U/L (4-35); Alkaline Phosphatase* 71 U/L (40-150); Anion Gap 2 mEq/L (7-15); Aspartate Amino Transferase* 33 U/L (12-35); Bilirubin Total* 0.3 mg/dL (0.1-1.5); Blood Urea Nitrogen* 8 mg/dL (5-24); Calcium* 8.7 mg/dL (8.4-10.6); Carbon Dioxide* 24 mmol/L (20-32); Glucose* 92 mg/dL (60-115); Total Protein* 6.1 g/dL (6.0-8.3)
[2023-12-23 05:07] LABS: C Reactive Protein* 2.3 mg/dL (0.5-1.0)
[2023-12-23 05:10] VITALS: BP 126/76; PULSE 69; RESP 16; O2SAT 96
[2023-12-23 05:30] VITALS: BP 126/76; PULSE 69; RESP 16; TEMP 36.8
== END 2023-12-23 05:30 | disposition home or self-care (01) ==
PROVIDERS: Emergency Provider Emergency Medicine; PCP Obstetrics & Gynecology
DX: R51.9 Headache, unspecified (principal); O99.893 Other specified diseases and conditions complicating puerperium
CPT/HCPCS: 36415; 80048; 80076; 81001; 83605; 85025; 86140; 99283; 99284

== ENCOUNTER 2024-01-07 08:51 | Outpatient (CLI) | payer OTHER, SELFPAY | END 2024-01-07 08:52 | disposition home or self-care (01) | PROVIDERS: PCP Obstetrics & Gynecology; Visit Provider Obstetrics & Gynecology | DX: O72.2 Delayed and secondary postpartum hemorrhage (principal) | CPT/HCPCS: 85384; 85610; 85730 ==

== ENCOUNTER 2024-01-07 13:23 | Outpatient (CLI) | payer OTHER, SELFPAY ==
--- NOTE | 2024-01-07 13:30 | US_ITS ---
Patient: DAINA AVILA Facility:?[facility] Patient ID:?[id number] Site Patient ID:?[id number]. Site :?[id number] Study:?US-Pelvis TRANSABDOMINAL AND TRANSVAGINAL-01/07/2024 2:11:22 PM Ordering Physician:DUSTIN WOO Final Report: INDICATION: Delayed and secondary hemorrhage. TECHNIQUE: Ultrasound pelvis transabdominal and transvaginal for better assessment or to better visualize the endometrium. COMPARISON: None. FINDINGS: The uterus measures 11.4 x 6.1 x 7.6 cm. Linear mixed echogenic foci with vascularity in the anterior uterus in the region of . The endometrial stripe is diffusely heterogeneous in appearance measuring up to 15 mm and demonstrates small anechoic foci. There is equivocal vascularity associated with the endometrium as well. Right ovary is 3.6 x 2.2 x 2.1 cm and is within normal limits. Normal-appearing color flow in the right ovary. Left ovary is 3.9 x 1.5 x 2.8 cm and is within normal limits. Normal-appearing color flow in the left ovary. No pelvic free fluid. IMPRESSION: 1. Heterogeneous endometrium with small cystic foci and equivocal vascularity raise concern for retained products of conception or endometritis in the appropriate clinical setting. 2. Linear mixed echogenic focus and vascularity in the anterior uterus near the is thought to represent sequela of recent surgery. 3. No pelvic free fluid. Dictated by Neil Gambino MD @ 01/07/2024 2:26:16 PM Dictated by: Neil Gambino MD @ 01/07/2024 14:26:27 Signed by:?Neil Gambino MD @01/07/2024 2:26:27 PM (Electronic Signature)
== END 2024-01-07 13:24 | disposition home or self-care (01) ==
LOC: US 13:23
PROVIDERS: Visit Provider Obstetrics & Gynecology
DX: O72.2 Delayed and secondary postpartum hemorrhage (principal)
CPT/HCPCS: 76830; 76856

== ENCOUNTER 2024-01-08 08:18 | Day surgery (SDC) | payer OTHER, SELFPAY ==
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
--- OUTSIDE RECORDS SUMMARY | 2024-01-08 08:20 | XMS_ITS | Clinical Summary ---
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 History Name Role Phone Andrew Tellez MD Primary Care Provider [phone] Source Comments You are receiving this document as you are listed as the primary care provider,follow-up provider, or the patient has been referred to you for consultation.This is in compliance with the Medicare and[facility] EHR Incentive Program,which states Providers who transition their patient to another setting of careor provider of care or refers their patient to another provider of care shouldprovide summary care record for each transition of care or referral. YouMail Allergies Active Allergy Reactions Criticality Noted Date Comments Bee Venom Anaphylaxis High 11/02/2014 Shellfish-Derived Products Anaphylaxis High 05/29/20 16 Medications Medication Sig Dispensed Refills Start Date End Date Status AUVI-Q SOAJ Inject 0.3 mLs into the muscle as needed for Anaphylaxis. May Repeat 2 each 11 09/23/2013 Active methylergonovine (METHERGINE) 0.2 MG tablet Take 1 Tablet (0.2 mg) by mouth three times a day. 3 Tablet 01/04/2024 Active methylergonovine (METHERGINE) 0.2 MG tablet Take 1 Tablet (0.2 mg) by mouth three times a day. 3 Tablet 01/04/2024 01/04/2024 Discontinued methylergonovine (METHERGINE) 0.2 MG tablet Take 1 Tablet (0.2 mg) by mouth three times a day. 3 Tablet 01/04/2024 01/04/2024 Discontinued Active Problems Problem Noted Date Diagnosed Date Intraductal papilloma 08/10/2022 Overview: Added automatically from request for surgery [id number] PCOS (polycystic ovarian syndrome) 06/10/2021 Abnormal uterine bleeding (AUB) 06/03/2021 Encounter for fertility planning 06/03/2021 Overweight (BMI 25.0-29.9) 06/03/2021 Migraine with aura and witho ut status migrainosus, not intractable 07/15/2018 Venom-induced anaphylaxis 11/03/2015 Generalized anxiety disorder 11/02/2014 PTSD (post-traumatic stress disorder) 11/02/2014 Allergic rhinitis 11/02/2014 Overview: Cat dander, spring Asthma, mild intermittent 11/02/2014 Resolved Problems Problem Noted Date Diagnosed Date Resolved Date Anxiety 11/02/2014 05/19/2020 Overview: Significant OCD traits, r/o diagnosis of OCD Encounters Date Type Department Care Team Description 01/04/2024 11:50 AM CDT Ancillary Procedure [facility] [address] [place] [address] 01/04/2024 11:30 AM CDT - 01/04/2024 4:32 PM CDT Emergency [facility] [address] [place] [address] Jen William MD Hernandez, Bradley S, MD hemorrhage, unspecified type (Primary Dx) Discharge Disposition: Home 12/20/2023 [facility] HIM DEPARTMENT Provider, MD Miri [facility] 12/20/2023 from Last 3 Months Immunizations Name Administration Dates Next Due 4vHPV (Gardasil) 04/09/2007,10/04/2006, 6 DTP 01/30/2001, 4,05/27/1989,1988,01/28/1989 DTaP 01/30/2001, 4,05/27/1989,1988,01/28/1989 Flu Vac (3+ yrs) 06/13/2005,06/04/2004, 3 Flu Vac Preserv Free (3+yrs) 07/22/2010 HepA Ped/Adol (1-18 yrs) 07/28/2005,08/05/2003,1 HepB Ped/Adol (0-18 yrs) 08/23/1999,02/21/1999,0 01/21/1999 HepB, Unspecified Formulation 02/21/1999, 999 Influenza (Flucelvax), Prese rv Free QIV 06/28/2022 Influenza IIV4 (Quadrivalent ) 0.5mL (63497) 06/21/2021,06/18/2018,07/16/2017 Influenza, Unspecified Formulation 06/18/2018 MCV4 (Menactra) 07/28/2005 MMR 01/21/1999,02/24/1990 Moderna Bivalent 12+ 05/04/2022 Moderna Monovalent 12+ 07/04/2021,10/21/2020, OPV, Trivalent (Orimune or tOPV) 09/05/1993 Polio, Unspecified Formulation 03/30/1989,1988 TB Skin Test (PPD) 11/17/2014,11/02/2014 Td 01/30/2001 Td (7+ yrs) 01/30/2001 Tdap 02/22/2015 Family History Medical History Relation Name Comments Other Father Colon polyps Bipolar Disorder Mother Janie Depression Mother Janie Hypertension Mother Janie Other Mother Janie Colon polyps Bipolar Disorder Brother Cancer, Other Maternal Grandfather Brain cancer Cancer, Colon Paternal Grandfather Relation Name Status Comments Father Alive Mother Janie Alive Brother Alive Maternal Grandfather Maternal Grandmother Alive Paternal Grandfather Paternal Grandmother Alive Social History Tobacco Use Types Packs/Day Years [...] on file Sexual Orientation Not on file Last Filed Vital Signs Vital Sign Reading Time Taken Comments Blood Pressure 107/65 01/04/2024 4:10 PM CDT Pulse 78 01/04/2024 4:10 PM CDT Temperature 37.2 ??C (98.9 ??F) 01/04/2024 4:10 PM CD T Respiratory Rate 18 01/04/2024 4:10 PM CDT Oxygen Saturation 97% 01/04/2024 4:10 PM CDT Inhaled Oxygen Concentration - - Weight 88.5 kg (195 lb) 09/19/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 Height 165.1 cm (5' 5) 09/19/2022 9:20 AM SAFETY TEACHER Body Mass Index 32.45 09/19/2022 9:20 AM SAFETY TEACHER Plan of Treatment Health Maintenance Due Date Last Done Comments Hep C Screening (Preventive Services) 1988 Pneumococcal (1 - PCV) 1994 Adult Preventive Visit 07/15/2020 07/15/2018, 2015 COVID-19 Vaccine ( season) 2023 05/04/2022, 07/04/2021, 10/21/2020, Additional history exists Asthma ACT 06/13/2024 06/13/2023, 02/25, 06/02/2019, Additional history exists Cervical Cancer Screening 03/14/20272021, 07/15/2018, 02/22/2015 (Completed) DTaP/Tdap/Td (12 - Tdap) 12/09/2033 024, 10/15/2023, 02/22/2015, Additional history exists Zoster/Shingles (1 of 2) 2038 IPV (Polio) Completed 09/05/1993, 11/1988, 01/28/1989 HepB Completed 08/23/1999, 01/26, 02/21/1999, Additional history exists HepA Completed 07/28/2005, 07/27, 06/07/2003 MCV4 Completed 07/28/2005 HPV Vaccine Completed 04/09/2007, 03/2007, 08/02/2006 HIV Screening (Preventive Services) Completed 05/17/2023, 05/04/2023, 03/24/2014 (Completed) Influenza Completed 05/23/2023, 09/2021, 06/21/2021, Additional history exists Hib Aged Out No longer eligi ble based on patient's age to complete this topic Procedures Procedure Name Priority Date/Time Associated Diagnosis Comments US PELVIC COMPLETE WO EV STAT 01/04/2024 1:04 PM CDT BT SECOND DRAW Routine 01/04/2024 12:00 PM CDT ANTIBODY IDENTIFICATION Routine 01/04/20 11:44 AM CDT ANTIBODY SCREEN STAT 01/04/2024 11:44 AM CDT BLOOD TYPE STAT 01/04/2024 11:44 AM CDT INR/PROTIME STAT 01/04/2024 11:44 AM CDT BASIC METABOLIC PANEL STAT 01/04/2024 11:44 AM CDT COMPLETE BLOOD COUNT-NO DIFF STAT 01/04/2024 11:44 AM CDT TYPE AND SCREEN STAT 01/04/2024 11:44 AM CDT PAP TEST Routine 03/14/2022 4:20 PM CDT Cervical cancer screening from Last 3 Months or Most Recently Relevant to Health Maintenance Results * US Pelvic Complete WO EV (01/04/2024 1:04 PM CDT) Anatomical Region Laterality Modality Pelvis Ultrasound 01/04/2024 1:04 PM CDT Narrative 01/04/2024 1:07 PM CDT EXAM: US PELVIC COMPLETE WO EV LOCATION: [facility] DATE: 01/04/2024 INDICATION: Post (C [...] flow cannot be documented transabdominally. Procedure Note José Luis Ballard MD - 01/04/2024 EXAM: US PELVIC COMPLETE WO EV LOCATION: [facility] DATE: 01/04/2024 INDICATION: Post (C [...] and vascular flow cannot bedocumented transabdominally. Christie Ahn PA-C RAD US * Blood Type second draw (01/04/2024 12:00 PM CDT) Pathologist [facility] ABO A 01/04/2024 1:17 PM CDT [facility] Negative 01/04/2024 1:17 PM CDT [facility] Blood Venipuncture / Unknown 01/04/2024 12:00 PM CDT 01/04/2024 12:31 PM CDT Emmanuelle Gary MD LAB_1 Performing Organization Address [facility] [address]/[facility] de Phone Number [facility] [address] * Antibody Identification (01/04/2024 11:44 AM CDT) [facility] Antibody Identification Passive D Antibody, Patient Received RHIG 01/04/2024 2:32 PM CDT [facility] Blood Venipuncture / Unknown 01/04/2024 11:44 AM CDT 01/04/2024 11:51 AM CDT Christie Ahn PA-C LAB_1 Performing Organization Address [facility] [address]/[facility] de Phone Number [facility] [address] * Antibody Screen (01/04/2024 11:44 AM CDT) [facility] Antibody Screen Interpretation Positive 01/04/2024 2:31 PM CDT [facility] Blood Venipuncture / Unknown 01/04/2024 11:44 AM CDT 01/04/2024 11:51 AM CDT Christie Ahn PA-C LAB_1 Performing Organization Address City/[facility] [address]/ZIP Co de Phone Number [facility] [address] * Blood Type (01/04/2024 11:44 AM CDT) ABO A 01/04/2024 2:31 PM CDT [facility] Negative 01/04/2024 2:31 PM CDT [facility] Blood Venipuncture / Unknown 01/04/2024 11:44 AM CDT 01/04/2024 11:51 AM CDT Christie Yolanda Ahn PA-C LAB_1 Performing Organization Address [facility] [address]/[facility] Co de Phone Number [facility] [address] * Basic Metabolic Panel (01/04/2024 11:44 AM CDT) Sodium 139 136 - 145 mmol/L 01/04/2024 12:26 PM [facility] Potassium 3.6 3.5 - 5.1 mmol/L 01/04/2024 12:26 PM [facility] Chloride 107 98 - 109 mmol/L 01/04/2024 12:26 PM [facility] CO2 23 20 - 29 mmol/L 01/04/2024 12:26 PM [facility] Anion Gap 9 6 - 16 mmol/L 01/04/2024 12:26 PM [facility] Calcium 9.1 8.4 - 10.4 mg/dL 01/04/2024 12:26 PM [facility] BUN 10 7 - 26 mg/dL 01/04/2024 12:26 PM [facility] Creatinine 0.74 0.55 - 1.02 mg/dL 01/04/2024 12:26 PM [facility] Glucose 85 70 - 100 mg/dL 01/04/2024 12:26 PM [facility] Comment:The given reference range is for the fasting state. Non-fasting reference range for glucose is 70 - 180 mg/dL. GFR, Estimated >60 >60 mL/min/1.7 3m2 01/04/2024 12:26 PM [facility] Blood Venipuncture / Unknown 01/04/2024 11:44 AM CDT 01/04/2024 11:51 AM CDT Christie Ahn PA-C LAB_[address] * (ABNORMAL) Complete Blood Count no Diff (01/04/2024 11:44 AM CDT) WBC 7.7 3.5 - 10.5 x10(9)/L 01/04/2024 11:58 AM [facility] RBC 4.32 3.90 - 5.03 x10(12)/L 01/04/2024 11:58 AM [facility] Hemoglobin 11.4(L) 12.0 - 15.5 g/dL 01/04/2024 11:58 AM [facility] HCT 36.2 34.9 - 44.5 % 01/04/2024 11:58 AM [facility] MCV 83.8 80.0 - 100.0 fL 01/04/2024 11:58 AM [facility] MCH 26.4(L) 27.6 - 33.3 pg 01/04/2024 11:58 AM [facility] MCHC 31.5 31.5 - 35.2 g/dL 01/04/2024 11:58 AM [facility] RDW 14.2 11.9 - 15.5 % 01/04/2024 11:58 AM [facility] Platelets 391 150 - 450 x10(9)/L 01/04/2024 11:58 AM [facility] Automated NRBC 0 <=0 /100 WBC 01/04/2024 11:58 AM [facility] Blood Venipuncture / Unknown 01/04/2024 11:44 AM CDT 01/04/2024 11:51 AM CDT Christie Ahn PA-C LAB_1 Performing Organization Address City/[facility] [address]/[place] [address], [facility] * INR/Protime (01/04/2024 11:44 AM CDT) Pathologist [facility] Protime 12.3 11.8 - 14.6 Seconds 01/04/2024 12:06 PM CDT [facility] INR 0.9 0.9 - 1.1 01/04/2024 12:06 PM CDT [facility] Blood Venipuncture / Unknown 01/04/2024 11:44 AM CDT 01/04/2024 11:52 AM CDT [facility] 01/04/2024 12:06 PM CDT If you take an anticoagulant medicine called warfarin, your doctor or clinician may establish a normal range for you that is different from the baseline range shown. Christie Ahn PA-C LAB_1 Performing Organization Address City/State/[facility] Co de Phone Number [id number] [place] [address] * PAP Test (03/14/2022 4:20 PM CDT) [facility] Case Report Pap ? Case: [id number] ? Authorizing Provider: ??Petrona Carvalho MD ?Collected: ? 03/14/2022 1620 ? Ordering Location: ? [facility] ? Received: ?03/14/2022 1635 ? Services-[employer] ? First Screen: ?Shannan Marks ? Specimen: ?Pap Test, Routine, Cervix/Endocervix ? 03/23/2022 3:59 PM CDT [facility] Pap Specimen Adequacy Satisfactory for evaluation, endocervical/adame sformation zone component present. 03/23/2022 3:59 PM CDT [facility] Pap Interpretation (NILM) Negative for intraepithelial lesion or malignancy. 03/23/2022 3:59 PM CDT [facility] Pap Disclaimer The Pap test is a screening test designed to aid in the detection of cervical cancer and its precursor lesions. It is not a diagnostic procedure and should not be used as the sole means of detecting cervical cancer. Both false-positive and false-negative results may occur. 03/23/2022 3:59 PM CDT [facility] Gross Description The specimen is received in SurePath fixative and properly labeled. 1 Pap-stained SurePath slide is prepared. 03/23/2022 3:59 PM CDT [facility] Embedded Images 3:59 PM CDT [facility] Other Specimen Type ENTIRE ENDOCERVIX / Unknown 03/14/2022 4:20 PM CDT 03/14/2022 4:35 PM CDT Comment:LMP: Patient's last menstrual period was 02/24/2022. 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 History Relationship Specialty Start Date End Date Andrew Tellez MD [address] [place] [address] PCP - General Family Practice 08/24/16
--- OUTSIDE RECORDS SUMMARY | 2024-01-08 08:20 | XMS_ITS | Encounter Summary ---
Author Name Unknown Organization [facility] Address [address] [address] Care Team Providers Care Cigarette Package Examiner Name Role Phone Andrew Tellez MD Primary Care Provider [phone] Reason for Referral * Procedure/Equipment (Routine) - Incomplete Specialty Diagnoses / Procedures Referred By Contefren t Referred To Contact Procedures US Pelvic Complete WO EV US Pelvic Complete W EV Christie Ahn PA-C [address] [place] [address] Referral ID Status Reason Start Date Expiration Date V isits Requested Visits Authorized [id number] Incomplete 01/04/2024 04/04/2025 1 1 Reason for Visit * Reason Comments VAGINAL BLEEDING Encounter Details Date Type Department Care Team ([facility] st Contact Info) Description 01/04/2024 11:30 AM CDT - 01/04/2024 4:32 PM CDT Emergency [facility] Emergency Dept [address] [place] [id number] Jen William MD [address], [place] [id number] Wyatt Bang MD [address] [place] [address] hemorrhage, unspecified type (Primary Dx) Discharge Disposition: Home Social History Tobacco Use Types Packs/Day Years [...] on file documented as of this encounter Last Filed Vital Signs Vital Sign Reading Time Taken Comments Blood Pressure 107/65 01/04/2024 4:10 PM CDT Pulse 78 01/04/2024 4:10 PM CDT Temperature 37.2 ??C (98.9 ??F) 01/04/2024 4:10 PM CD T Respiratory Rate 18 01/04/2024 4:10 PM CDT Oxygen Saturation 97% 01/04/2024 4:10 PM CDT Inhaled Oxygen Concentration - - Weight - - Height - - Body Mass Index - - documented in this encounter Discharge Instructions * Discharge Instructions* Christie Ahn PA-C - 01/04/2024 3:16 PM CDT Thank you for allowing us to participate in your care today. - your work up was largely reassuring and no immediately life threatening illness/bleed identified.OB was consulted and reviewed blood work and US with recommendation for medical management. - take prescribed medication (Methergine) as written for the next 24 hours. - tylenol and ibuprofen can be taken to help with pain and symptoms - oxycodone can be taken for pain uncontrolled with tylenol/ibuprofen and more conservative measures. - follow up closely with your LADLE OPERATOR team - return to the ED for any new/concerning/worsening of symptoms including, but not limited to increasing bleeding, chest pain, dizziness/lightheadedness, syncope or any other worrisome symptoms. * Attachments The following attachments cannot be sent through Care Everywhere. * Hemorrhage (Syriac) documented in this encounter Medications at Time of Discharge Medication Sig Dispensed Refills Start Date End Date methylergonovine (METHERGINE) 0.2 MG tablet Take 1 Tablet (0.2 mg) by mouth three times a day. 3 Tablet 01/04/2024 documented as of this encounter Consult Notes * Lana Hauser RN - 01/04/2024 4:32 PM CDTAssociated Order(s): ED CONSULT TO CASE MANAGEMENT AFTER HOURS DISCHARGE 01/07/24 1:54 PM Director Dental Services Note: ED CM asked to assist with OBGYN referral. Patient was seen in [facility] on 01/04/24 for vaginal bleeding and lower abd cramping, s/p 18 days ago. Reviewed chart. Insurance: gauzz ins Primary care physician: Andrew Tellez at [facility] Specialty care providers: OBGYN Avenue ED CM attempted to reach patient. Left voicemail requesting a call back. ED CM will try to reach patient again X 1 . Lana Burk RN-[facility] building services engineer * April Ford MD - 01/04/2024 3:33 PM CDTAssociated Order(s): LADLE OPERATOR CONSULT Gynecology Consult DOS: 01/04/2024 Naman A Nayeli [id number] Reason for consult: bleeding HPI: Naman Fransico Nayeli is a 33 y.o. POD#18 s/p primary CS for suspected macrosomia in the setting of GDM, polyhydramnios, and IVF who presents with vaginal bleeding. Patient reports that she initially had fairly heavy bleeding after delivery, similar to a period. However, for the last week she has had no bleeding at all, and she had stopped wearing pads. Yesterday and today, she was more active than usual, going for walks. Today while she was out walking her dog, she suddenly felt a gush of blood, and then continued to have heavy vaginal bleeding with clots. The blood quickly soaked through 6 paper towels, at which time she called an ambulance. Patient felt a little dizzy and nauseous while in the ambulance, but denies these symptoms at present. She reports intermittent lower abdominal cramping since yesterday, like contractions, which lasts 15-30 seconds at a time and is accompanied by gushes of blood. She has continued to intermittently pass dark blood/clots in the emergency department. She last changed her pad about an hour ago. She denies fever, chills, chest pain, SOB, abnormal vaginal discharge. Patient reports that her early postoperative recovery was notable for a reaction to the Duramorph in her spinal, requiring her to get Narcan twice. She also had some increased bleeding within the first 1-2 days , for which she received rectal misoprostol and an injection. She otherwise recovered without difficulty. She reports her hemoglobin was 9 when she was in the hospital. She denies ever needing a blood transfusion. OB History Para Term AB Living 1 1 1 0 0 1 SAB IAB Ectopic Multiple Live Births 0 0 0 0 1 # Outcome Date GA Lbr Johnathan/2nd Weight Sex Delivery Anes PTL Lv 1 Term 12/17/23 39w2d F CS-LTranv MATTHEW Comments: GDM, polyhydramnios, suspected macrosomia Past Medical History: Diagnosis Date Anxiety Irregular menses Migraine with aura and without status migrainosus, not intractable 07/15/2018 Migraines With aura, ocular Ovarian cyst Varicella Past Surgical History: Procedure Laterality Date sinus 1997 SINUS SURGERY 1997 Meds: [COMPLETED] acetaminophen (TYLENOL) tablet 1,000 mg, 1,000 mg, Oral, Once, Christie Ahn PA-C, 1,000 mg at 01/04/24 1250 methylergonovine (METHERGINE) tablet 0.2 mg, 0.2 mg, Oral, Once, Mariah Villalobos MD oxyCODONE-acetaminophen (PERCOCET) 5-325 MG per tablet 1 Tablet, 1 Tablet, Oral, Once, Christie Ahn PA-C [COMPLETED] sodium chloride 0.9% bolus 1,000 mL, 1,000 mL, Intravenous, Once, Christie Ahn PA-C, Stopped at 01/04/24 1251 AUVI-Q SOAJ, Inject 0.3 mLs into the muscle as needed for Anaphylaxis. May Repeat, Disp: 2 each, Rfl: 11 Allergies: Allergies Allergen Reactions Bee Venom Anaphylaxis Shellfish-Derived Products Anaphylaxis Physical Exam: BP 108/58 Pulse 80 Temp 99 ??F (37.2 ??C) (Oral) Resp 14 SpO2 100% Gen: Awake, alert, answering questions appropriately, in no acute distress CV: Regular rate, well perfused Resp: Non-labored breathing Abdomen: Soft, non-distended, minimal lower abdominal tenderness to palpation, no rebound or guarding, fundus firm and non-tender : Normal appearing external genitalia, pad in place for the last hour with small streak of dark blood, scant trickling with fundal massage Labs: Latest Reference Range & Units 01/04/24 11:44 WBC 3.5 - 10.5 x10(9)/L 7.7 RBC 3.90 - 5.03 x10(12)/L 4.32 Hemoglobin 12.0 - 15.5 g/dL 11.4 (L) HCT 34.9 - 44.5 % 36.2 (L): Data is abnormally low Latest Reference Range & Units 01/04/24 11:44 Protime 11.8 - 14.6 Seconds 12.3 INR 0.9 - 1.1 0.9 Imaging: EXAM: US PELVIC COMPLETE WO EV LOCATION: [facility] DATE: 01/04/2024 INDICATION: Post (C section) [...] be documented. No significant free fluid. IMPRESSION: 1. No discrete sonographic features to suggest retained products of conception. 2. Small amount of complex fluid in the endometrial cavity, presumably hemorrhage. 3. The ovaries are deep within the pelvis and vascular flow cannot be documented transabdominally. Assessment & Plan: Naman Tyler is a 33 y.o. POD#18 s/p primary CS who presents with increased vaginal bleeding today, following 1 week of no bleeding. VSS. On exam, fundus firm, non-tender, and well below umbilicus, with minimal trickling of blood. Per ED, on speculum exam patient had only small amount of oozing from cervical os, so this exam was not repeated. Hemoglobin improved from prior to discharge after delivery. Ultrasound shows thin endometrial stripe with small amount ofblood in the cavity, no evidence of retained products of conception. Suspect patient most likely has had accumulation of blood/clot in the uterus over the past week, which was expressed today in the setting of increased physical activity. Discussed that ultrasound andlaboratory findings are reassuring. No indication for surgical intervention at this time, given minimal bleeding at present and no evidence of retained POC. Discussed option for 24 hour course of oral Methergine, and patient is interested in this. Discussed return precautions, including worsening pain, fever, heavy bleeding. - PO Methergine TID x 24 hours - Follow up with primary OB Discussed with Dr. Ford. Brenda Villalobos MD LADLE OPERATOR PGY-2 01/04/2024 3:34 PM LADLE OPERATOR STAFF: I reviewed the patient's course, VS and imaging but did not personally see the patient. S/p CD, presents with increased vaginal bleeding 18 days post-op. VS normal and minimal ongoing bleeding. Hgb stable. US images reviewed. EMS thin at 6 mm with fluid in cavity c/w blood. No evidence of retained POC. Plan for 24 hours methergine and close follow up in her clinic. April Ford MD documented in this encounter ED Notes * Rola Jacome RN - 01/04/2024 4:15 PM CDT 4:15 PM Patient given verbal and printed discharge education and materials, patient verbalized understanding. Patient instructed where to cigar packer and picker discharge medications, patient verbalized understanding. IV removed. VSS upon discharge. All personal belongings present with patient at time of discharge. Patient taken to lobby in wheelchair. Patient dressed weather appropriate. * Christie Ahn PA-C - 01/04/2024 11:40 AM CDT [facility] Emergency Medicine Visit Note Chief Complaint: Chief Complaint Patient presents with VAGINAL BLEEDING HPI: Naman Tyler is a 33 y.o. female with a history of asthma, GERD, gestational diabetes, polyhydramnios, IVF (scheduled C Section 12/17/23), migraine, CHI, PCOS who presents to the Emergency Department for evaluation of vaginal bleeding, lower abdominal cramping. Patient presents to the ED by EMS for evaluation of heavy vaginal bleeding. Patient reports he had a scheduled following in-vitro fertilization , patient reports onset of abdominalcramping last evening, describes as brief and intermittent duration, initially attributed to possible gas and constipation. Did have bowel movement this morning, while lying the dogs out and walking dog had severe lower abdominal cramping and then a gush of blood and clots from her vagina. Reports significant bleeding following this soaking through a towel, and roll of paper towels. Reports change her dressing at least 2 times in 30 minutes. Denies any blood thinning medications no previous history of bleeding dyscrasias. Has been treating occasional symptoms with Tylenol and ibuprofen, on Prozac. Does endorse some lightheadedness and dizziness with onset after bleeding. Patient is breast-feeding, baby is doing well. No fevers or chills, C section site healing well without discharge, redness or purulence. Denies any nausea vomiting or diarrhea, no dysuria or hematuria. No previous abdominal surgeries. HISTORY SOURCE: Patient Chart Review: 12/17/23: [facility]. - 39 1/7 weeks gestation scheduled for suspected macrosomia. IVF with frozen embryo transfer date of 04/06/2023. - pathology report of placenta: Focal chronic chorioamnionitis, meconiophages and reactive amniocytes. Placental disc without infarcts, negative for villitis. 12/18/23: labs hgb 9.2 In addition to the above, I have personally reviewed any medications, allergies, problem list, medical history, surgical history and social history in the health record as of this visit. Review of Systems A complete review of systems was performed and is otherwise negative. Review of Systems: Vital Signs: BP 108/58 Pulse 80 Temp 99 ??F (37.2 ??C) (Oral) Resp 14 SpO2 100% Vitals: 01/04/24 1200 01/04/24 1230 01/04/24 1415 BP: 120/79 108/58 Pulse: 85 80 Resp: Temp: SpO2: 100% Physical Exam: General: Alert, pleasant, and cooperative, mildly anxious appearing. HEENT: Head NC/AT, PERRL. No nasal discharge present, Oropharynx is non- erythematous, oral mucosa is moist. Neck is supple. Lungs: CTA bilaterally, no wheezing, rhonchi or rales. No respiratory distress. Heart: RRR no murmurs. Distal pulses present. Abd: soft, tender to palpation in lower quadrants and suprapubic region with voluntary guarding, norigidity or rebound, non-distended, no masses or organomegaly. : Performed with supervisor of research, trace dark red blood at external vaginal introitus, no appreciable clots, no bright red blood and no active flow. No lesions, no additional discharge. Neuro: Alert and oriented X3, . No focal neuro deficits. Musculoskeltal: No swelling, ecchymosis or deformity present. Strength is 5/5 in the upper and lower extremities bilaterally. Skin: warm, dry and without acute rash MDM: 33-year-old female with history and physical as above who presents ED for evaluation of heavy vaginal bleeding with associated abdominal cramping following recent scheduled 2-3 weeks ago. On arrival patient is afebrile, non tachycardic, nontoxic appearing. No active heavy or pulsatile flow appreciated on cursory vaginal exam. Differentials include, but are not limited to delayed hemorrhage, retained products of conception, PID, endometritis, trauma. Given state and heavy vaginal bleeding with associated cramping, OBGYN informed, transvaginal ultrasound ordered along with CBC and BMP with type and screen, patient placed on telemetry, coagulation factors ordered. Patient provided initial dose of Tylenol, IV fluids. Disposition will be pending labs, imaging and OBGYN recommendations. Vital signs stable throughout ED visit. Patient had all questions/concerns addressed. Disposition: pending labs, imaging Patient was seen by and discussed with Dr. William. ED Course: ED Course as of 01/04/24 1601 SunJanuary 04, 2024 1147 Spoke with OBGYN, agree with plan for ultrasound, blood work, requesting records to be obtained from where patient delivered baby. Will review labs and imaging and see patient. [CM] 1208 ATTENDING: I personally saw the patient, performed qiu elements of the visit, and supervised patient care with the web design instructor. [GG] 1247 Basic Metabolic Panel No significant electrolyte derangements, no DAREK. [CM] 1319 US Pelvic Complete WO EV IMPRESSION: 1. No discrete sonographic features to suggest retained products of conception. 2. Small amount of complex fluid in the endometrial cavity, presumably hemorrhage. 3. The ovaries are deep within the pelvis and vascular flow cannot be documented transabdominally [CM] 1325 OBGYN re paged for review, evaluation recommendations. [CM] 1342 Patient returned from ultrasound, reports she changed her pad after saturating, did pass a large clot will voiding urine in commode. Ultrasound was uncomfortable. Discussed results and pending OB evaluation and recommendations. [CM] 1343 Spoke with LADLE OPERATOR, no indication for D&C at this time. Would recommend discussing medical management. Reviewed US---do not believe emergent D&C indicated at this time. Will see patient to discuss management. [CM] 1511 Evaluated by LADLE OPERATOR: met with patient and discussed work up, reassuring. At this time, patientappropriate for d/c home with close out patient follow up and strict return precautions. OB to write rx for 24 h course of methergine tid with initial dose in ED. [CM] 1512 Sign out received, assumed care at this time. [TS] ED Course User Index [CM] Christie Ahn PA-C [GG] Jen William MD [TS] Bryn Staton PA-C Clinical Impressions as of 01/04/24 1601 hemorrhage, unspecified type This note created using speech-recognition software and may contain unintended word substitutions. * Rola Jacome RN - 01/04/2024 11:37 AM CDT 11:37 AM Patient arrives via EMS after experiencing vaginal bleeding and clots while walking dog. Patient is post (18 days). Patient states had gestational diabetes during . Patient states she was experiencing abdominal cramping since last night. Patient appears A&O x4, respirations appear even and unlabored. Patient endorses continuing abdominal cramping, rating 3/10. Patient's mother present at bedside. 11:53 AM Blood work obtained, IV fluids started, patient tolerating well. 12:55 PM Patient returned from US. Patient medicated per MAR by this RN, tolerated well. Continues to rest on cart, NAD noted. Eyes open, respirations appear even and unlabored. Side rails up x2, bedlocked and in lowest position for safety, call light within reach. 2:35 PM Patient continues to rest on cart at this time, NAD noted. Eyes open, respirations appear even and unlabored. VSS. Patient still endorsing cramping abdominal pain. Family member present at bedside. Side rails up x2, bed locked and in lowest position for safety, call light within reach. * Diana Calloway RN - 01/04/2024 11:28 AM CDT Patient brought in by [facility]. Gave on 12/16 via . Today was out walking, felt gush and has been bleeding heavily since. Cramping started last night but thought it might have been constipation. documented in this encounter Plan of Treatment Not on file documented as of this encounter Procedures Procedure Name Priority Date/Time Associated Diagnosis Comments US PELVIC COMPLETE WO EV STAT 01/04/2024 1:04 PM CDT BT SECOND DRAW Routine 01/04/2024 12:00 PM CDT TYPE AND SCREEN STAT 01/04/2024 11:44 AM CDT ANTIBODY IDENTIFICATION Routine 01/04/20 11:44 AM CDT ANTIBODY SCREEN STAT 01/04/2024 11:44 AM CDT BLOOD TYPE STAT 01/04/2024 11:44 AM CDT BASIC METABOLIC PANEL STAT 01/04/2024 11:44 AM CDT COMPLETE BLOOD COUNT-NO DIFF STAT 01/04/2024 11:44 AM CDT INR/PROTIME STAT 01/04/2024 11:44 AM CDT documented in this encounter Results * US Pelvic Complete WO EV (01/04/2024 1:04 PM CDT) Anatomical Region Laterality Modality Pelvis Ultrasound 01/04/2024 1:04 PM CDT Narrative 01/04/2024 1:07 PM CDT EXAM: US PELVIC COMPLETE WO EV LOCATION: [facility] DATE: 01/04/2024 INDICATION: Post (C section) [...] EXAM: US PELVIC COMPLETE WO EV LOCATION: [facility] DATE: 01/04/2024 INDICATION: Post (C section) [...] flow cannot bedocumented transabdominally. Christie ARIAS US * Blood Type second draw (01/04/2024 12:00 PM CDT) ABO A 01/04/2024 1:17 PM CDT [facility] RH Negative 01/04/2024 1:17 PM CDT [facility] Blood Venipuncture / Unknown 01/04/2024 12:00 PM CDT 01/04/2024 12:31 PM CDT Emmanuelle Gary MD LAB_1 [facility] [address] * Antibody Identification (01/04/2024 11:44 AM CDT) Antibody Identification Passive D Antibody, Patient Received RHIG 01/04/2024 2:32 PM CDT [facility] Blood Venipuncture / Unknown 01/04/2024 11:44 AM CDT 01/04/2024 11:51 AM CDT Christie Ahn PA-C LAB_1 Performing Organization Address [facility] Co de Phone Number [facility] [address] * Antibody Screen (01/04/2024 11:44 AM CDT) Antibody Screen Interpretation Positive 01/04/2024 2:31 PM CDT [facility] Blood Venipuncture / Unknown 01/04/2024 11:44 AM CDT 01/04/2024 11:51 AM CDT Christie Ahn PA-C LAB_1 Performing Organization Address [facility] Co de Phone Number [facility] [address] * Blood Type (01/04/2024 11:44 AM CDT) ABO A 01/04/2024 2:31 PM CDT [facility] RH Negative 01/04/2024 2:31 PM CDT [facility] Blood Venipuncture / Unknown 01/04/2024 11:44 AM CDT 01/04/2024 11:51 AM CDT Christie Ahn PA-C LAB_1 Performing Organization Address [facility] Co de Phone Number [facility] [address] * INR/Protime (01/04/2024 11:44 AM CDT) Protime 12.3 11.8 - 14.6 Seconds 01/04/2024 12:06 PM [facility] INR 0.9 0.9 - 1.1 01/04/2024 12:06 PM [facility] Blood Venipuncture / Unknown 01/04/2024 11:44 AM CDT 01/04/2024 11:52 AM CDT [facility] - 01/04/2024 12:06 PM CDT If you take an anticoagulant medicine called warfarin, your doctor or clinician may establish a normal range for you that is different from the baseline range shown. Christie Ahn PA-C LAB_[id number] [place] [address] * Basic Metabolic Panel (01/04/2024 11:44 AM CDT) Pathologist [facility] Sodium 139 136 - 145 mmol/L 01/04/2024 12:26 PM [facility] Potassium 3.6 3.5 - 5.1 mmol/L 01/04/2024 12:26 PM [facility] Chloride 107 98 - 109 mmol/L 01/04/2024 12:26 PM [facility] CO2 23 20 - 29 mmol/L 01/04/2024 12:26 PM [facility] Anion Gap 9 6 - 16 mmol/L 01/04/2024 12:26 PM [facility] Calcium 9.1 8.4 - 10.4 mg/dL 01/04/2024 12:26 PM [facility] BUN 10 7 - 26 mg/dL 01/04/2024 12:26 PM [facility] Creatinine 0.74 0.55 - 1.02 mg/dL 01/04/2024 12:26 PM [facility] Glucose 85 70 - 100 mg/dL 01/04/2024 12:26 PM [facility] Comment:The given reference range is for the fasting state. Non-fasting reference range for glucose is 70 - 180 mg/dL. GFR, Estimated >60 >60 mL/min/1.7 3m2 01/04/2024 12:26 PM [facility] Blood Venipuncture / Unknown 01/04/2024 11:44 AM CDT 01/04/2024 11:51 AM CDT Christie Ahn PA-C LAB_[address] * (ABNORMAL) Complete Blood Count no Diff (01/04/2024 11:44 AM CDT) WBC 7.7 3.5 - 10.5 x10(9)/L 01/04/2024 11:58 AM [facility] RBC 4.32 3.90 - 5.03 x10(12)/L 01/04/2024 11:58 AM [facility] Hemoglobin 11.4(L) 12.0 - 15.5 g/dL 01/04/2024 11:58 AM [facility] HCT 36.2 34.9 - 44.5 % 01/04/2024 11:58 AM [facility] MCV 83.8 80.0 - 100.0 fL 01/04/2024 11:58 AM [facility] MCH 26.4(L) 27.6 - 33.3 pg 01/04/2024 11:58 AM [facility] MCHC 31.5 31.5 - 35.2 g/dL 01/04/2024 11:58 AM [facility] RDW 14.2 11.9 - 15.5 % 01/04/2024 11:58 AM [facility] Platelets 391 150 - 450 x10(9)/L 01/04/2024 11:58 AM [facility] Automated NRBC 0 <=0 /100 WBC 01/04/2024 11:58 AM [facility] Blood Venipuncture / Unknown 01/04/2024 11:44 AM CDT 01/04/2024 11:51 AM CDT Christie Ahn PA-C LAB_[address] documented in this encounter Visit Diagnoses Diagnosis hemorrhage, unspecified type- Primary * Triage Assessment Note - Rola Jacome RN - 01/04/2024 11:34 AM CDT Patient arrived by AMBULANCE from home with chief complaint: Vaginal bleeding Symptoms/background (EMS narrative): gave via 18 days ago, was walking dog today and had gush of blood with clots Interventions/abnormal vitals: VSS for transport Additional patient report (what else the nurse finds out): Gestational diabetes during , took baby asa during What is most important to you about your ER visit today? N/a Initial falls risk factors: Not applicable documented in this encounter Administered Medications Inactive Administered Medications - up to 3 most recent administrations Medication Order MAR Action Action Date Dose Rate Site acetaminophen (TYLENOL) tablet 1,000 mg 1,000 mg, Oral, ONCE, On Sun01/04/24 at 1315, For 1 dose Given 01/04/2024 12:50 PM CDT 1,000 mg methylergonovine (METHERGINE) tablet 0.2 mg 0.2 mg, Oral, ONCE, On Sun01/04/24 at 1530, For 1 dose, Hazardous waste disposal required. HAZARDOUS DRUG Preparation: Single glove Administration: If no touch, no PPE; if handling, single glove Given 01/04/2024 3:55 PM CDT 0.2 mg sodium chloride 0.9% bolus 1,000 mL 1,000 mL, Intravenous, Administer over 1 Hours, ONCE, On Sun01/04/24 at 1200, For 1 dose Started 01/04/2024 11:47 AM CDT 1,000 mL documented in this encounter Active and Recently Administered Medications Times are shown in CDT. Scheduled Medication Order 01/02/2024 01/03/2024 01/04/2024 acetaminophen (TYLENOL) tablet 1,000 mg (COMPLETED) 1,000 mg, Oral, ONCE, On Sun01/04/24 at 1315, For 1 dose 1250 (Given - Provid er: Rola Jacome RN) methylergonovine (METHERGINE) tablet 0.2 mg (COMPLETED) 0.2 mg, Oral, ONCE, On Sun01/04/24 at 1530, For 1 dose, Hazardous waste disposal required. HAZARDOUS DRUG Preparation: Single glove Administration: If no touch, no PPE; if handling, single glove 1555 (Given - Provid er: Rola Jacome RN) oxyCODONE-acetaminophen (PERCOCET) 5-325 MG per tablet 1 Tablet 1 Tablet, Oral, ONCE, On Sun01/04/24 at 1415, For 1 dose 1415 (Not Given - Pr ovider: Rola Jacome RN - Reason: Patient/family refused - Comment: patient does not want at this time) sodium chloride 0.9% bolus 1,000 mL (COMPLETED) 1,000 mL, Intravenous, Administer over 1 Hours, ONCE, On Sun01/04/24 at 1200, For 1 dose 1147 (Started - Prov ider: Rola Jacome RN)1251 (Infused - Provider: Rola Jacome RN) documented in this encounter Care Teams Cigarette Package Examiner Relationship Specialty Start Date End Date Andrew Tellez MD [address] [place] [address] PCP - General Family Practice 08/24/16 documented as of this encounter
--- OUTSIDE RECORDS SUMMARY | 2024-01-08 08:20 | XMS_ITS | Encounter Summary ---
Author Name Unknown Organization [facility] Address [address] [address] Care Team Providers Care Instructional Leader Name Role Phone Andrew Tellez MD Primary Care Provider [phone] Encounter Details Date Type Department Care Team (Late st Contact Info) Description 07/13/2023 Telephone [facility] [address] [place] [address] Andrew Tellez MD [address] [place] [address] Social History Tobacco Use Types Packs/Day Years Used Date Smoking Tobacco: Never Smokeless Tobacco: Never Alcohol Use Standard Drinks/Week Comments Yes 0 (1 standard drink = 0.6 oz pur e alcohol) 4/wk PHQ-2 Answer Date Recorded PHQ-2 Score 2 09/19/2022 Sex and Gender Information Value Date Recorded Sex Assigned at Not on file Gender Identity Not on file Sexual Orientation Not on file documented as of this encounter Nursing Notes * Loren Lazo - 07/13/2023 2:46 PM CST Received progress notes from outside provider documented in this encounter Plan of Treatment Not on file documented as of this encounter Visit Diagnoses Not on filedocumented in this encounter Care Teams Instructional Leader Relationship Specialty Start Date End Date Andrew Tellez MD [address] [place] [address] PCP - General Family Practice 08/24/16 documented as of this encounter
--- OUTSIDE RECORDS SUMMARY | 2024-01-08 08:20 | XMS_ITS | Encounter Summary ---
Author Name Unknown Organization [facility] Address [address], [place] [address] Care Team Providers Care Line Maintainer Name Role Phone Andrew Tellez MD Primary Care Provider Encounter Details Date Type Department Care Team (Late st Contact Info) Description 12/20/2023 [facility] DEPARTMENT Provider, [place] [address] [facility] 12/20/2023 Social History Tobacco Use Types Packs/Day Years [...] on filedocumented in this encounter Care Teams Line Maintainer Relationship Specialty Start Date End Date Andrew Tellez MD [address] [place] [address] PCP - General Family Practice 08/24/16 documented as of this encounter
--- OUTSIDE RECORDS SUMMARY | 2024-01-08 08:21 | XMS_ITS | Encounter Summary ---
Author Name Unknown Organization [facility] Address [address] [address] Care Team Providers Care Drop Wirer Name Role Phone Andrew Tellez MD Primary Care Provider Encounter Details Date Type Department Care Team (Late st Contact Info) Description 03/25/2014 Scanned History External to Transferred Record, Provider TRANSFERRED RECORDS Social History Tobacco Use Types Packs/Day Years Used Date Smoking Tobacco: Never Assessed Sex and Gender Information Value Date Recorded Sex Assigned at Not on file Gender Identity Not on file Sexual Orientation Not on file documented as of this encounter Plan of Treatment Not on file documented as of this encounter Visit Diagnoses Not on filedocumented in this encounter Additional Health Concerns Infection Onset Date Last Indicated Resolved Time R/O COVID19 06/14/2020 06/14/2020 06/15/2020 12:3 1 PM CDT R/O COVID19 05/05/2021 05/05/2021 05/05/2021 8:02 PM CDT documented as of this encounter Care Teams Drop Wirer Relationship Specialty Start Date End Date Andrew Tellez MD [address] [place] [address] PCP - General Family Practice 08/24/16 documented as of this encounter
--- OUTSIDE RECORDS SUMMARY | 2024-01-08 08:21 | XMS_ITS | Encounter Summary ---
Author Name Unknown Organization [facility] Address [address] [address] Care Team Providers Care Cash Applications Clerk Name Role Phone Andrew Tellez MD Primary Care Provider Reason for Visit * Reason Comments ASTHMA Encounter Details Date Type Department Care Team (Late st Contact Info) Description 06/13/2023 Telephone [facility] [address] [place] [address] Andrew Tellez MD [address] [place] [address] ASTHMA Social History Tobacco Use Types Packs/Day Years [...] on filedocumented in this encounter Care Teams Cash Applications Clerk Relationship Specialty Start Date End Date Andrew Tellez MD [address] [place] [address] PCP - General Family Practice 08/24/16 documented as of this encounter
--- OUTSIDE RECORDS SUMMARY | 2024-01-08 08:21 | XMS_ITS | Clinical Summary ---
Author Name Unknown Organization [facility] Address [address] [place] [address] Care Team Providers Care Projector Operator Name Role Phone Andrew Tellez Primary Care Provider [phone] Kennedy Pickens MD Unavailable [phone] Allergies No known active allergies Medications No known medications Social History Tobacco Use Types Packs/Day Years Used Date Smoking Tobacco: Never Smokeless Tobacco: Never Alcohol Use Standard Drinks/Week Comments No 0 (1 standard drink = 0.6 oz pur e alcohol) AUDIT-C Answer Date Recorded Frequency of Alcohol Consumption Never 08/18/2018 Average Number of Drinks Not on file 018 Frequency of Binge Drinking Not on file 07/28 Adolescent Education Answer Date Record ed Getting School Help Needed Not on file 07/10 Estimated Date of Delivery Comme nts Yes 12/23/2023 Based on Other B asis, IVF Dating Sex and Gender Information Value Date Recorded Sex Assigned at Not on file Gender Identity Not on file Sexual Orientation Not on file Last Filed Vital Signs Vital Sign Reading Time Taken Comments Blood Pressure 129/84 03/11/2019 3:12 PM CDT Pulse 88 03/11/2019 3:12 PM CDT Temperature 36.7 ??C (98.1 ??F) 03/11/2019 1:44 PM CD T Respiratory Rate 21 03/11/2019 3:14 PM CDT Oxygen Saturation 97% 03/11/2019 3:14 PM CDT Inhaled Oxygen Concentration - - Weight 73.6 kg (162 lb 4.1 oz) 03/11/2019 1:44 P M CDT Height - - Body Mass Index - - Plan of Treatment Health Maintenance Due Date Last Done Comments ADVANCE CARE PLANNING 1988 ANNUAL REVIEW OF HM ORDERS 1988 HIV SCREENING 11/26/2003 HEPATITIS C SCREENING 2006 PAP 2009 YEARLY PREVENTIVE VISIT 07/15/2019 07/15/2018 MATERNAL SCREENING DISCUSSION 05/27/2023 PHQ-2 (once per calendar year) 2023 OBGCT (OB) 09/02/2023 GROUP B STREP SCREENING 2023 DTAP/TDAP/TD IMMUNIZATION (8 - Td or Tdap) 02/22/2025 02/22/2015, 01/30/2001, 01/30/2001, Additional history exists GLUCOSE 05/11/2026 05/11/2023, 02/24, 03/11/2019, Additional history exists IPV IMMUNIZATION Completed 09/05/1993, 11/1988, 01/28/1989 HEPATITIS B IMMUNIZATION Completed 999, 02/21/1999, 02/21/1999, Additional history exists MENINGITIS IMMUNIZATION Completed 07/28/2005 HPV IMMUNIZATION Completed 04/09/2007, 03/2007, 08/02/2006 INFLUENZA VACCINE Completed 05/23/2023, , 06/21/2021, Additional history exists COVID-19 Vaccine Completed 06/08/2023, 03/2022, 07/04/2021, Additional history exists Pneumococcal Vaccine: Pediatrics (0 to 5 Years) and At-Risk Patients (6 to 64 Years) Aged Out No longer eligible based on patient's age to complete this topic RSV MONOCLONAL ANTIBODY Aged Out No l onger eligible based on patient's age to complete this topic RSV VACCINE ( & 60+) (No Doses Required) Completed Procedures Procedure Name Priority Date/Time Associated Diagnosis Comments GLUCOSE (EXTERNAL RESULT) Routine 05/11/2023 12:00 PM CDT from Last 3 Months or Most Recently Relevant to Health Maintenance Results * (ABNORMAL) Glucose (External Result) (05/11/2023 12:00 PM CDT) Glucose (External) 100 60 - 115 mg/dL [facility] Blood 05/11/2023 12:0 0 PM CDT Narrative [facility] - 05/11/2023 12:00 PM CDT [facility] RESULTS Provider Outside LAB - HIM EXTERNAL R ESULT [facility] [address] [place] [address], [facility] [phone] from Last 3 Months or Most Recently Relevant to Health Maintenance Care Teams Projector Operator Relationship Specialty Start Date End Date Andrew Tellez [address] [place] [address] PCP - General 08/19/18 Kennedy Pickens MD [address] [address] [place] [address] Assigned OBGYN Provider 08/04/23
--- OUTSIDE RECORDS SUMMARY | 2024-01-08 08:21 | XMS_ITS | Encounter Summary ---
Author Name Unknown Organization [facility] Address [address] [address] Care Team Providers Care Arch Pad Cementer Name Role Phone Andrew Tellez MD Primary Care Provider Encounter Details Date Type Department Care Team (Late st Contact Info) Description 10/09/2008 Scanned History External to Transferred Record, Provider [facility] Social History Tobacco Use Types Packs/Day Years [...] documented as of this encounter Care Teams Arch Pad Cementer Relationship Specialty Start Date End Date Andrew Tellez MD [address] [place] [address] PCP - General Family Practice 08/24/16 documented as of this encounter
--- OUTSIDE RECORDS SUMMARY | 2024-01-08 08:21 | XMS_ITS | Referral Summary ---
Author Name Unknown Organization [facility] Address [address] [place] [address] Care Team Providers Care Guest Service Host Name Role Phone Andrew Tellez Primary Care Provider [phone] Kennedy Pickens MD Unavailable [phone] Allergies No known active allergies Medications No [...] Mass Index - - Plan of Treatment Not on file Procedures Procedure Name Priority Date/Time Associated Diagnosis Comments GLUCOSE (EXTERNAL RESULT) Routine 05/11/2023 12:00 PM CDT from Last 3 Months or Most Recently Relevant to Health Maintenance Results * (ABNORMAL) Glucose (External Result) (05/11/2023 12:00 PM CDT) Glucose (External) 100 60 - 115 mg/dL [facility] Blood 05/11/2023 12:0 0 PM CDT Narrative [facility] - 05/11/2023 12:00 PM CDT [facility] RESULTS Provider Outside LAB - HIM EXTERNAL R ESULT [facility] [address] [place] [address], [facility] [place] [phone] from Last 3 Months or Most Recently Relevant to Health Maintenance Care Teams Guest Service Host Relationship Specialty Start Date End Date Andrew Tellez [address] [place] [address] PCP - General 08/19/18 Kennedy Pickens MD [address] [address] [place], [place] [address] Assigned OBGYN Provider 08/04/23
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
[2024-01-08] MEDS: LACTATED RINGERS 1000 ML 1,000 ML 100 ML IV (08:30)
[2024-01-08] MEDS: SODIUM CHLORIDE 0.9 % (FLUSH) 10 ML SYRINGE IVF (08:41)
[2024-01-08 08:43] VITALS: BP 129/82; PULSE 92; RESP 16; TEMP 36.7; O2SAT 98; BMI 28.8
[2024-01-08] MEDS: DOXYCYCLINE HYCLATE 100 MG 200 MG PO (08:54)
--- NOTE | 2024-01-08 09:24 | W.PM.H&PU ---
History & Physical Update History & Physical Update H&P Reviewed and patient assessed: No changes noted H&P Updates: Oneida is a 33yo seen in pre-op prior to hysteroscopy, dilation and curettage, proceed as indicated in the setting of suspected retained POC and delayed PPH. She is s/p consultation and pre-op H&P with Dr. Cespedes on 01/06, please see this note for complete details. No interval update to her health history. We reviewed the goal of surgery is to assess the endometrial canal and remove and focal pathology (suspected retained POC) for both diagnostic and therapeutic purposes. Specimen will be sent to pathology for diagnostic purposes. We reviewed risk of bleeding, infection, damage to surrounding structures (perforation) and uterine scarring post-procedure. Explained that I will be proactive if excess bleeding is noted given her heavy bleeding over the weekend, where uterotonic agents, TXA and balloon tamponade are available. She would be agreeable to blood transfusion if required. All questions answered. Written consent resigned.
[2024-01-08] MEDS: BUPIVACAINE 0.5% 30 ML INJECTION (10:54)
[2024-01-08] MEDS: SILVER NITRATE APPLICATOR 1 EACH STICK..EA. TOPICAL (10:54)
[2024-01-08 11:10] VITALS: BP 107/78; PULSE 94; RESP 16; TEMP 36.3; O2SAT 95
--- NOTE | 2024-01-08 11:14 | W.ANESCHARGE ---
Anesthesia Charges Start Date/Time Anesthesia Start Date: 01/08/24 Anesthesia Start Time: 10:10 Stop Date/Time Anesthesia Stop Date: 01/08/24 Anesthesia Stop Time: 11:09
[2024-01-08 11:30] VITALS: BP 115/81; PULSE 92; RESP 16; O2SAT 97
--- NOTE | 2024-01-08 11:43 | P.GYNPRC_ITS ---
Procedure Note Time Seen by Provider: 10:45 Date of procedure: 01/08/24 Will [facility] bill your pro fee for this procedure?: Yes Pre-op diagnosis: Delayed hemorrhage Possible retained products of conception Post-op diagnosis: Same Procedure: Hysteroscopy, dilation and curettage (truclear and suction) Anesthesia: MAC and local Complications: None Surgeon: Gurdeep Jones MD Estimated blood loss (mL): 150 IV fluids (mL): 900 Urine Output (mL): 200 Pathology: specimen obtained, sent to pathology Condition: stable Disposition: same day Findings: Unremarkable external genital exam Scant blood in vaginal vault, cervix appears minimally dilated (5mm) Anterior endometrial lining is heterogenous and thickened throughout, areas of white and dark red tissue possibly representing retained products of conception vs hematoma. Scattered focal areas that are dark in appearance, suspicious for venous congestion or subinvolution of placental site. Procedure Description: Procedure in detail: Patient was taken to the operating room with IV running. She received p.o. doxycycline in preop for antibiotic prophylaxis. She was positioned in dorsal lithotomy position with her legs fully supported in Ye llofin stirrups. Monitored anesthesia care was administered. She was prepped and draped in the usual sterile fashion. Exam under anesthesia was performed for the above-noted findings. Bimanual exam was performed, uterus is about 12 weeks in size and anteverted. Speculum was inserted. Cervix visualized and grasped along the anterior lip with a single-tooth tenaculum. Paracervical block was performed in the usual fashion was 0.5% bupivacaine, total 20 mL. Cervix was noted to appear about 5 mm dilated, where size 6 uterine sound could be easily passed without dilation in order to accommodate the TRUCLEAR hysteroscope. This was assembled with saline inflow and outflow in place. The line was flushed of bubbles. The hysteroscope was advanced through the cervix into the endometrial cavity for the above noted findings. Uterine distention was carefully maintained, where there was note for loss of fluid via the vagina throughout the case due to cervical dilation. The tissue morcellator was then inserted through the operating channel. Window lock was performed. Under direct visualization, the anterior endometrial cavity was circumferentially curetted with the tissue morcellator. Small volume bleeding was noted as tissue was resected. Tissue was resected until all focal pathology was felt to be adequately addressed and normal uterine contour was restored, when we reached a fluid deficit of nearly 1500mL. Decision was made to halt hysteroscopic resection and proceed with pass with the suction curettage. Suction equipment was assembled, vacuum test performed. A size 7 curved curette was easily passed and advanced to the fundus, suction applied and the curette was rotated circumferentially while gently drawing back to fully evacuate uterine cavity. Small passage of tissue was noted with first pass, the second was only notable for return of blood. IV TXA 1g was administered for bleeding prophylaxis. Post-suction hysteroscopy was performed, demonstrating buddhism of normal endometrial cavity and contour. The hysteroscope was then removed from the uterus. Tenaculum was removed from the anterior lip of cervix. Hemostasis was noted with pressure and silver nitr ate. No bleeding was noted from the cervical os. Bimanual exam performed, confirmed excellent uterine tone. Patient tolerated procedure well. She was taken to recovery area in stable condition. Debrief performed with EBL 150mL, fluid deficit 1500mL, IVF 700mL, UOP 200mL. Characteristic images obtained to be reviewed with patient. Specimen is endometrial curettings, sent for pathologic evaluation.
[2024-01-08 11:45] VITALS: BP 107/75; PULSE 90; RESP 16; O2SAT 97
[2024-01-08 12:00] VITALS: BP 110/78; PULSE 89; RESP 16; O2SAT 98
[2024-01-08 12:15] VITALS: BP 113/74; PULSE 88; RESP 16; O2SAT 96
== END 2024-01-08 12:40 | disposition home or self-care (01) ==
PROVIDERS: PCP Obstetrics & Gynecology; Visit Provider Obstetrics & Gynecology
PROC: 0UDB8ZZ Extraction of Endometrium, Via Natural or Artificial Opening Endoscopic (ICD-10-PCS; CPT 58558; principal; 2024-01-08 09:30)
DX: O72.2 Delayed and secondary postpartum hemorrhage (principal)
CPT/HCPCS: 59160; 00952; 36415; 86850; 86870; 86900; 86901; 88305; A9270; J0665; J1100; J1200; J1885; J2250; J2405; J2704; J3010; J7120

== ENCOUNTER 2024-01-11 13:21 | Outpatient (CLI) | payer OTHER, SELFPAY ==
--- OUTSIDE RECORDS SUMMARY | 2024-01-11 13:28 | XMS_ITS | Encounter Summary ---
Author Name Unknown Organization [facility] Address [address], [place] [address] Care Team Providers Care Shrub Planter Name Role Phone Andrew Tellez MD Primary Care Provider [phone] Reason for Referral * Procedure/Equipment (Routine) - Incomplete Specialty Diagnoses / Procedures Referred By Contefren t Referred To Contact Procedures US Pelvic Complete WO EV US Pelvic Complete W EV Christie Ahn PA-C [address] [place] [address] Referral ID Status Reason Start Date Expiration Date V isits Requested Visits Authorized [id number] Incomplete 01/04/2024 04/04/2025 1 1 Reason for Visit * Reason Comments VAGINAL BLEEDING Encounter Details Date Type Department Care Team ([facility] st Contact Info) Description 01/04/2024 11:30 AM CDT - 01/04/2024 4:32 PM CDT Emergency [facility] Emergency Dept [address] [place] [address] Jen William MD [address] [place], [place] [id number] Wyatt Bang MD [address] [place] [address] hemorrhage, unspecified type (Primary Dx) Discharge Disposition: [...] measures. - follow up closely with your DIRECTOR ENTERPRISE SYSTEMS team - return to the ED for any new/concerning/worsening of symptoms including, but not limited to increasing bleeding, chest pain, dizziness/lightheadedness, syncope or any other worrisome symptoms. * Attachments The following attachments cannot be sent through Care Everywhere. * Hemorrhage (Welsh) documented in this encounter Medications at Time [...] MANAGEMENT AFTER HOURS DISCHARGE 01/07/24 1:54 PM Survey And Mapping Technician Note: ED CM asked to assist with OBGYN referral. Patient was seen in [facility] on 01/04/24 for vaginal bleeding and lower abd cramping, s/p 18 days ago. Reviewed chart. Insurance: [employer] ins Primary care physician: Andrew Tellez at [facility] Specialty care providers: [facility] CM attempted to reach patient. Left voicemail requesting a call back. ED CM will try to reach patient again X 1 . Lana Burk RN-[facility] phone triage specialist * April Ford MD - 01/04/2024 3:33 PM CDTAssociated Order(s): DIRECTOR ENTER[employer] CONSULT Gynecology Consult DOS: 01/04/2024 Naman A Nayeli [id number] Reason for consult: bleeding HPI: Naman [...] EXAM: US PELVIC COMPLETE WO EV LOCATION: [facility] DATE: 01/04/2024 INDICATION: Post (C [...] Discussed with Dr. Ford. Brenda Villalobos MD DIRECTOR ENTERPR[employer]S PGY-2 01/04/2024 3:34 PM DIRECTOR ENTERPRISE SYSTEMS STAFF: I reviewed the patient's course, VS [...] documented in this encounter ED Notes * Eladia Choi RN - 01/04/2024 4:32 PM CDT Survey And Mapping Technician Note: 01/08/24 1:03 PM ED CM asked to assist patient with OB follow up after an ED visit. Call to patient and she had emergency surgery today and she requested supervisor contact lens to place a compliant about being d/c. Patient Rep number provided. Referral closed. Eladia Coronado RNC, BSN, MHA, CCM, ACM-RN Lead phone triage specialist * Rola Jacome RN - 01/04/2024 4:15 PM CDT 4:15 PM Patient given verbal and printed discharge education and materials, patient verbalized understanding. Patient instructed where to product picker discharge medications, patient verbalized understanding. IV removed. VSS upon discharge. All personal belongings present with patient at time of discharge. Patient taken to lobby in wheelchair. Patient dressed weather appropriate. * Christie Ahn PA-C - 01/04/2024 11:40 AM CDT [facility] Emergency Medicine Visit Note Chief [...] surgeries. HISTORY SOURCE: Patient Chart Review: 12/17/23: [facility]. - 39 1/7 weeks gestation scheduled for [...] no masses or organomegaly. : Performed with bakery helper, trace dark red blood at external vaginal [...] visit, and supervised patient care with the him coder. [GG] 1247 Basic Metabolic Panel No significant [...] evaluation and recommendations. [CM] 1343 Spoke with DIRECTOR ENTERPRISE SYSTEMS, no indication for D&C at this time. Would recommend discussing medical management. Reviewed US---do not believe emergent D&C indicated at this time. Will see patient to discuss management. [CM] 1511 Evaluated by DIRECTOR ENTERPRISE SYSTEMS: met with patient and discussed work up, [...] Patient returned from US. Patient medicated per OCT by this RN, tolerated well. Continues to [...] 11:28 AM CDT Patient brought in by [facility]. Gave on 12/16 via [...] EXAM: US PELVIC COMPLETE WO EV LOCATION: [facility] DATE: 01/04/2024 INDICATION: Post (C section) vaginal [...] EXAM: US PELVIC COMPLETE WO EV LOCATION: [facility] DATE: 01/04/2024 INDICATION: Post (C [...] flow cannot bedocumented transabdominally. Christie Ahn PA-C [facility] * Blood Type second draw (01/04/2024 12:00 PM CDT) ABO A 01/04/2024 1:17 PM CDT [facility] Negative 01/04/2024 1:17 PM CDT [facility] Blood Venipuncture / Unknown 01/04/2024 12:00 PM CDT 01/04/2024 12:31 PM CDT Emmanuelle Gary MD LAB_1 Performing Organization Address City/[facility]/ZIP Co de Phone Number [facility] [address] * Antibody Identification (01/04/2024 11:44 AM CDT) [facility] Antibody Identification Passive D Antibody, Patient Received RHIG 01/04/2024 2:32 PM CDT [facility] Blood Venipuncture / Unknown 01/04/2024 11:44 AM CDT 01/04/2024 11:51 AM CDT Christie Ahn PA-C LAB_1 Performing Organization Address City/[facility] Co de Phone Number [facility] [address] * Antibody Screen (01/04/2024 11:44 AM CDT) Pathologist [facility] Antibody Screen Interpretation Positive 01/04/2024 2:31 PM CDT [facility] Blood Venipuncture / Unknown 01/04/2024 11:44 AM CDT 01/04/2024 11:51 AM CDT Christie Ahn PA-C LAB_1 Performing Organization Address City/[facility] Co de Phone Number [facility] [address] * Blood Type (01/04/2024 11:44 AM CDT) ABO A 01/04/2024 2:[address] [facility] Negative 01/04/2024 2:[address] [facility] Blood Venipuncture / Unknown 01/04/2024 11:44 AM CDT 01/04/2024 11:51 AM CDT Christie Ahn PA-C LAB_1 [facility] [address] * INR/Protime (01/04/2024 11:44 AM CDT) Protime 12.3 11.8 - 14.6 Seconds 01/04/2024 12:[address] [facility] INR 0.9 0.9 - 1.1 01/04/2024 12:[address] [facility] Blood Venipuncture / Unknown 01/04/2024 11:44 AM CDT 01/04/2024 11:[address] [facility] - 01/04/2024 12:06 PM CDT If you take an anticoagulant medicine called warfarin, your doctor or clinician may establish a normal range for you that is different from the baseline range shown. Christie Ahn PA-C LAB_1 Performing Organization Address City/[facility] Co de Phone Number [address] * Basic Metabolic Panel (01/04/2024 11:44 AM CDT) Pathologist [facility] Sodium 139 136 - 145 mmol/L 01/04/2024 12:[address] [facility] Potassium 3.6 3.5 - 5.1 mmol/L 01/04/2024 12:[address] [facility] Chloride 107 98 - 109 mmol/L 01/04/2024 12:[address] [facility] CO2 23 20 - 29 mmol/L 01/04/2024 12:[address] [facility] Anion Gap 9 6 - 16 mmol/L 01/04/2024 12:[address] [facility] Calcium 9.1 8.4 - 10.4 mg/dL 01/04/2024 12:26 PM [facility] BUN 10 7 - 26 mg/dL 01/04/2024 12:26 PM [facility] Creatinine 0.74 0.55 - 1.02 mg/dL 01/04/2024 12:26 PM [facility] Glucose 85 70 - 100 mg/dL 01/04/2024 12:26 PM [facility] Comment:The given reference range is for the fasting state. Non-fasting reference range for glucose is 70 - 180 mg/dL. GFR, Estimated >60 >60 mL/min/1.7 3m2 01/04/2024 12:26 PM [facility] Blood Venipuncture / Unknown 01/04/2024 11:44 AM CDT 01/04/2024 11:51 AM CDT Christie Ahn PA-C LAB_1 Performing Organization Address City/State/[facility] Co de Phone Number [address] * (ABNORMAL) Complete Blood Count no Diff (01/04/2024 11:44 AM CDT) WBC 7.7 3.5 - 10.5 x10(9)/L 01/04/2024 11:58 AM [facility] RBC 4.32 3.90 - 5.03 x10(12)/L 01/04/2024 11:58 AM [facility] Hemoglobin 11.4(L) 12.0 - 15.5 g/dL 01/04/2024 11:58 AM [facility] HCT 36.2 34.9 - 44.5 % 01/04/2024 11:58 AM [facility] MCV 83.8 80.0 - 100.0 fL 01/04/2024 11:58 AM [facility] MCH 26.4(L) 27.6 - 33.3 pg 01/04/2024 11:58 AM [facility] MCHC 31.5 31.5 - 35.2 g/dL 01/04/2024 11:58 AM [facility] RDW 14.2 11.9 - 15.5 % 01/04/2024 11:58 AM [facility] Platelets 391 150 - 450 x10(9)/L 01/04/2024 11:58 AM [facility] Automated NRBC 0 <=0 /100 WBC 01/04/2024 11:58 AM [facility] Blood Venipuncture / Unknown 01/04/2024 11:44 AM CDT 01/04/2024 11:51 AM CDT Christie Ahn PA-C LAB_[address] documented in this encounter Visit Diagnoses [...] RN) documented in this encounter Care Teams Shrub Planter Relationship Specialty Start Date End Date Andrew Tellez MD [address] [place] [address] PCP - General Family Practice 08/24/16 documented as of this encounter
--- OUTSIDE RECORDS SUMMARY | 2024-01-11 13:28 | XMS_ITS | Encounter Summary ---
Author Name Unknown Organization [facility] Address [address], [place] [address] Care Team Providers Care School Superintendent Name Role Phone Andrew Tellez MD Primary Care Provider Encounter Details Date Type Department Care Team (Late st Contact Info) Description 12/20/2023 [facility] DEPARTMENT Provider, [place] [address] [facility] 12/20/2023 Social History Tobacco Use Types Packs/Day [...] on filedocumented in this encounter Care Teams School Superintendent Relationship Specialty Start Date End Date Andrew Tellez MD [address] [place] [address] PCP - General Family Practice 08/24/16 documented as of this encounter
--- OUTSIDE RECORDS SUMMARY | 2024-01-11 13:28 | XMS_ITS | Encounter Summary ---
Author Name Unknown Organization [facility] Address [address], [place] [address] Care Team Providers Care Pipe And Boiler Covers Supervisor Name Role Phone Andrew Tellez MD Primary Care Provider Reason for Visit * Reason Comments ASTHMA Encounter Details Date Type Department Care Team (Late st Contact Info) Description 06/13/2023 Telephone [facility] Practice [address] [place] [address] Andrew Tellez MD [address] [place] [address] ASTHMA Social History Tobacco Use Types Packs/Day [...] on filedocumented in this encounter Care Teams Pipe And Boiler Covers Supervisor Relationship Specialty Start Date End Date Andrew Tellez MD [address] [place] [address] PCP - General Family Practice 08/24/16 documented as of this encounter
--- OUTSIDE RECORDS SUMMARY | 2024-01-11 13:28 | XMS_ITS | Encounter Summary ---
Author Name Unknown Organization [facility] Address [address], [place] [address] Care Team Providers Care Architect Intern Name Role Phone Andrew Tellez MD Primary Care Provider [phone] Reason for Visit * Procedure/Equipment (Routine) - Incomplete Specialty Diagnoses / Procedures Referred By Ezra t Referred To Contact Procedures US Pelvic Complete WO EV US Pelvic Complete W EV Christie Ahn PA-C [address] [place] [address] Referral ID Status Reason Start Date Expiration Date V isits Requested Visits Authorized [id number] Incomplete 01/04/2024 04/04/2025 1 1 Encounter Details Date Type Department Care Team (Late st Contact Info) Description 01/04/2024 11:50 AM CDT Ancillary Procedure [facility] [address] [place] [address] Social History Tobacco Use Types [...] EXAM: US PELVIC COMPLETE WO EV LOCATION: [facility] DATE: 01/04/2024 INDICATION: Post [...] on filedocumented in this encounter Care Teams Architect Intern Relationship Specialty Start Date End Date Andrew Tellez MD [address] [place] [address] PCP - General Family Practice 08/24/16 documented as of this encounter
--- OUTSIDE RECORDS SUMMARY | 2024-01-11 13:28 | XMS_ITS | Encounter Summary ---
Author Name Unknown Organization [facility] Address [address], [place] [address] Care Team Providers Care Electric Spot Welder Name Role Phone Andrew Tellez MD Primary Care Provider Encounter Details Date Type Department Care Team (Late st Contact Info) Description 07/13/2023 Telephone [facility] [address] [place] [address] Andrew Tellez MD [address] [place] [address] Social History Tobacco Use Types Packs/Day Years [...] on filedocumented in this encounter Care Teams Electric Spot Welder Relationship Specialty Start Date End Date Andrew Tellez MD [address] [place] [address] PCP - General Family Practice 08/24/16 documented as of this encounter
--- OUTSIDE RECORDS SUMMARY | 2024-01-11 13:28 | XMS_ITS | Clinical Summary ---
Author Name Unknown Organization [facility] Address [address], [place] [address] Care Team Providers Care Key Bed Installer Name Role Phone Andrew Tellez MD Primary Care Provider [phone] Source Comments You are receiving this document as you are listed as the primary care provider,follow-up provider, or the patient has been referred to you for consultation.This is in compliance with the Medicare and[facility] EHR Incentive Program,which states Providers who transition their patient to another setting of careor provider of care or refers their patient to another provider of care shouldprovide summary care record for each transition of care or referral. Foap AB Allergies Active Allergy Reactions Criticality Noted Date [...] Overview: Added automatically from request for surgery [id number] PCOS (polycystic ovarian syndrome) 06/10/2021 Abnormal uterine [...] CDT Ancillary Procedure [facility] [address] [place] [address] 01/04/2024 11:30 AM CDT - 01/04/2024 4:32 PM CDT [facility] Emergency [facility] [address] [place] [address] Jen William MD Hernandez, Bradley S, MD hemorrhage, unspecified type (Primary Dx) Discharge Disposition: Home 12/20/2023 [facility] HIM DEPARTMENT Provider, MD Miri [facility] 12/20/2023 from Last 3 Months Immunizations Name Administration Dates Next Due 4vHPV (Gardasil) 04/09/2007,10/04/2006, 6 DTP 01/30/2001, 4,05/27/1989,1988,01/28/1989 DTaP 01/30/2001, 4,05/27/1989,1988,01/28/1989 Flu Vac (3+ yrs) 06/13/2005,06/04/2004, 3 Flu Vac Preserv Free (3+yrs) 07/22/2010 HepA Ped/Adol (1-18 yrs) 07/28/2005,08/05/2003,1 HepB Ped/Adol (0-18 yrs) 08/23/1999,02/21/1999,0 01/21/1999 HepB, Unspecified Formulation 02/21/1999, 999 Influenza (Flucelvax), Prese rv Free QIV 06/28/2022 Influenza IIV4 (Quadrivalent ) 0.5mL (22359) 06/21/2021,06/18/2018,07/16/2017 Influenza, Unspecified Formulation 06/18/2018 MCV4 (Menactra) [...] 88.5 kg (195 lb) 09/19/2022 9:51 AM CLINICAL REVIEW NURSE Height 165.1 cm (5' 5) 09/19/2022 9:20 AM CLINICAL REVIEW NURSE Body Mass Index 32.45 09/19/2022 9:20 AM CLINICAL REVIEW NURSE Plan of Treatment Health Maintenance Due Date [...] EXAM: US PELVIC COMPLETE WO EV LOCATION: [facility] DATE: 01/04/2024 INDICATION: Post (C [...] EXAM: US PELVIC COMPLETE WO EV LOCATION: [facility] DATE: 01/04/2024 INDICATION: Post (C [...] second draw (01/04/2024 12:00 PM CDT) Pathologist [facility] ABO A 01/04/2024 1:17 PM CDT [facility] Negative 01/04/2024 1:17 PM CDT [facility] Blood Venipuncture / Unknown 01/04/2024 12:00 PM CDT 01/04/2024 12:31 PM CDT Emmanuelle Gary MD LAB_1 Performing Organization Address [facility] de Phone Number [facility] [address] * Antibody Identification (01/04/2024 11:44 AM CDT) [facility] Antibody Identification Passive D Antibody, Patient Received RHIG 01/04/2024 2:32 PM CDT [facility] Blood Venipuncture / Unknown 01/04/2024 11:44 AM CDT 01/04/2024 11:51 AM CDT Christie Ahn PA-C LAB_1 Performing Organization Address [facility] de Phone Number [facility] [address] * Antibody Screen (01/04/2024 11:44 AM CDT) [facility] Antibody Screen Interpretation Positive 01/04/2024 2:31 PM CDT [facility] Blood Venipuncture / Unknown 01/04/2024 11:44 AM CDT 01/04/2024 11:51 AM CDT Christie Ahn PA-C LAB_1 Performing Organization Address City/[facility]/ZIP Co de Phone Number [facility] [address] * Blood Type (01/04/2024 11:44 AM CDT) ABO A 01/04/2024 2:31 PM CDT [facility] RH Negative 01/04/2024 2:31 PM CDT [facility] Blood Venipuncture / Unknown 01/04/2024 11:44 AM CDT 01/04/2024 11:51 AM CDT Christie Yolanda Ahn PA-C LAB_1 Performing Organization Address [facility] Co de Phone Number [facility] [address] * Basic Metabolic Panel (01/04/2024 11:44 AM CDT) Sodium 139 136 - 145 mmol/L 01/04/2024 12:26 PM [facility] Potassium 3.6 3.5 - 5.1 mmol/L 01/04/2024 12:26 PM [facility] Chloride 107 98 - 109 mmol/L 01/04/2024 12:26 PM [facility] CO2 23 20 - 29 mmol/L 01/04/2024 12:26 PM [facility] Anion Gap 9 6 - 16 mmol/L 01/04/2024 12:26 PM [facility] Calcium 9.1 8.4 - 10.4 mg/dL 01/04/2024 12:26 PM [facility] BUN 10 7 - 26 mg/dL 01/04/2024 12:26 PM [facility] Creatinine 0.74 0.55 - 1.02 mg/dL 01/04/2024 12:26 PM [facility] Glucose 85 70 - 100 mg/dL 01/04/2024 12:26 PM [facility] Comment:The given reference range is for the fasting state. Non-fasting reference range for glucose is 70 - 180 mg/dL. GFR, Estimated >60 >60 mL/min/1.7 3m2 01/04/2024 12:26 PM [facility] Blood Venipuncture / Unknown 01/04/2024 11:44 AM CDT 01/04/2024 11:51 AM CDT Christie Ahn PA-C LAB_[address] * (ABNORMAL) Complete Blood Count no Diff (01/04/2024 11:44 AM CDT) WBC 7.7 3.5 - 10.5 x10(9)/L 01/04/2024 11:58 AM [facility] RBC 4.32 3.90 - 5.03 x10(12)/L 01/04/2024 11:58 AM [facility] Hemoglobin 11.4(L) 12.0 - 15.5 g/dL 01/04/2024 11:58 AM [facility] HCT 36.2 34.9 - 44.5 % 01/04/2024 11:58 AM [facility] MCV 83.8 80.0 - 100.0 fL 01/04/2024 11:58 AM [facility] MCH 26.4(L) 27.6 - 33.3 pg 01/04/2024 11:58 AM [facility] MCHC 31.5 31.5 - 35.2 g/dL 01/04/2024 11:58 AM [facility] RDW 14.2 11.9 - 15.5 % 01/04/2024 11:58 AM [facility] Platelets 391 150 - 450 x10(9)/L 01/04/2024 11:58 AM [facility] Automated NRBC 0 <=0 /100 WBC 01/04/2024 11:58 AM [facility] Blood Venipuncture / Unknown 01/04/2024 11:44 AM CDT 01/04/2024 11:51 AM CDT Christie Ahn PA-C LAB_1 Performing Organization Address City/[facility]/ZIP [place] [address], [facility] * INR/Protime (01/04/2024 11:44 AM CDT) Pathologist [facility] Protime 12.3 11.8 - 14.6 Seconds 01/04/2024 12:[address] [facility] INR 0.9 0.9 - 1.1 01/04/2024 12:[address] [facility] Blood Venipuncture / Unknown 01/04/2024 11:44 AM CDT 01/04/2024 11:52 AM CDT [facility] 01/04/2024 12:06 PM CDT If you take an anticoagulant medicine called warfarin, your doctor or clinician may establish a normal range for you that is different from the baseline range shown. Christie Ahn PA-C LAB_1 Performing Organization Address City/State/[facility] Co de Phone Number [id number] [place] [address] * PAP Test (03/14/2022 4:20 PM CDT) [facility] Case Report Pap ? Case: [id number] ? Authorizing Provider: ??Petrona Carvalho MD ?Collected: ? 03/14/2022 1620 ? Ordering Location: ? [facility] ? Received: ?03/14/2022 1635 ? Services-UPSTREAM BIOMANUFACTURING TECHNICIAN ? First Screen: ?Shannan Marks ? Specimen: ?Pap Test, Routine, Cervix/Endocervix ? 03/23/2022 3:59 PM CDT [facility] Pap Specimen Adequacy Satisfactory for evaluation, endocervical/daame sformation zone component present. 03/23/2022 3:59 PM CDT [facility] Pap Interpretation (NILM) Negative for intraepithelial lesion or malignancy. 03/23/2022 3:59 PM CDT [facility] Pap Disclaimer The Pap test is a screening test designed to aid in the detection of cervical cancer and its precursor lesions. It is not a diagnostic procedure and should not be used as the sole means of detecting cervical cancer. Both false-positive and false-negative results may occur. 03/23/2022 3:59 PM CDT [facility] Gross Description The specimen is received in SurePath fixative and properly labeled. 1 Pap-stained SurePath slide is prepared. 03/23/2022 3:59 PM CDT [facility] Embedded Images 3:59 PM CDT [facility] Other Specimen Type ENTIRE ENDOCERVIX / Unknown 03/14/2022 4:20 PM CDT 03/14/2022 4:35 PM CDT Comment:LMP: Patient's last menstrual period was 02/24/2022. Petrona Carvalho MD LAB PATHOLOGY Performing Organization Address City/State/[facility] Co de Phone Number [facility] [address] [facility] [address] from Last 3 Months or Most Recently Relevant to Health Maintenance Advance Directives * Full Code (Latest Code Status on File) Date Activated Date Inactivated Comments 09/29/2022 12:33 PM 09/29/2022 4:25 PM Care Teams Key Bed Installer Relationship Specialty Start Date End Date Andrew Tellez MD [address] [place] [address] PCP - General Family Practice 08/24/16
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
--- OUTSIDE RECORDS SUMMARY | 2024-01-11 13:29 | XMS_ITS | Referral Summary ---
Author Name Unknown Organization [facility] Address [address] [place] [address] Care Team Providers Care Slasher Tender Name Role Phone Andrew Tellez Primary Care Provider [phone] Kennedy Pickens MD Unavailable [phone] Allergies No known active allergies Medications No [...] Glucose (External) 100 60 - 115 mg/dL [facility] Blood 05/11/2023 12:0 0 PM CDT Narrative [facility] - 05/11/2023 12:00 PM CDT [facility] RESULTS Provider Outside LAB - HIM EXTERNAL R ESULT [facility] [address] [place] [address], [facility] [phone] from Last 3 Months or Most Recently Relevant to Health Maintenance Care Teams Slasher Tender Relationship Specialty Start Date End Date Andrew Tellez [address] [place] [address] PCP - General 08/19/18 Kennedy Pickens MD [address] [address] [place], [place] [address] Assigned OBGYN Provider 08/04/23
--- OUTSIDE RECORDS SUMMARY | 2024-01-11 13:29 | XMS_ITS | Clinical Summary ---
Author Name Unknown Organization [facility] Address [address] [place] [address] Care Team Providers Care Retail Special Event Associate Name Role Phone Andrew Tellez Primary Care Provider [phone] Kennedy Pickens MD Unavailable [phone] Allergies No known active allergies Medications No [...] Glucose (External) 100 60 - 115 mg/dL [facility] Blood 05/11/2023 12:0 0 PM CDT Narrative [facility] - 05/11/2023 12:00 PM CDT [facility] LAB RESULTS Provider Outside LAB - HIM EXTERNAL R ESULT [facility] [address] [place] [address], [facility] [phone] from Last 3 Months or Most Recently Relevant to Health Maintenance Care Teams Retail Special Event Associate Relationship Specialty Start Date End Date Andrew Tellez [address] [place] [address] PCP - General 08/19/18 Kennedy Pickens MD [address] [address] [place] [address] Assigned OBGYN Provider 08/04/23
--- OUTSIDE RECORDS SUMMARY | 2024-01-11 13:29 | XMS_ITS | Encounter Summary ---
Author Name Unknown Organization [facility] Address [address], [place] [address] Care Team Providers Care Mixer Crane Operator Name Role Phone Andrew Tellez MD Primary [...] documented as of this encounter Care Teams Mixer Crane Operator Relationship Specialty Start Date End Date Andrew Tellez MD [address] [place] [address] PCP - General Family Practice 08/24/16 documented as of this encounter
--- OUTSIDE RECORDS SUMMARY | 2024-01-11 13:29 | XMS_ITS | Encounter Summary ---
Author Name Unknown Organization [facility] Address [address], [place] [address] Care Team Providers Care B2B Outside Sales Representative Name Role Phone Andrew Tellez MD Primary [...] documented as of this encounter Care Teams B2B Outside Sales Representative Relationship Specialty Start Date End Date Andrew Tellez MD [address] [place] [address] PCP - General Family Practice 08/24/16 documented as of this encounter
== END 2024-01-11 13:22 | disposition home or self-care (01) ==
PROVIDERS: PCP Obstetrics & Gynecology; Visit Provider Obstetrics & Gynecology
DX: Z39.2 Encounter for routine postpartum follow-up (principal)
CPT/HCPCS: 82565; 84450; 84460; 84520

== ENCOUNTER 2024-01-19 21:06 | Emergency (ER) | payer OTHER, SELFPAY ==
[2024-01-19 21:12] VITALS: BP 117/83; PULSE 88; RESP 18; TEMP 36.2; O2SAT 98; BMI 29.1
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
--- NOTE | 2024-01-19 21:28 | CRLHL7_ITS ---
For Patients: As a result of the Century Cures Act, medical imaging exams and procedure reports are released immediately into your electronic medical record. You may view this report before your referring provider. If you have questions, please contact your health care provider. INDICATION: TECHNIQUE: CT abdomen and pelvis with 90 mL Isovue 370 COMPARISON: None. FINDINGS: Lower chest: Unremarkable. Liver: Normal in size and attenuation. No suspicious masses. Gallbladder and bile ducts: No stones or inflammation. No biliary dilatation. Pancreas: Unremarkable. No mass or inflammation. Spleen: Normal in size. No masses. Adrenal glands: Normal in size. No nodules. Kidneys: Normal in size. No suspicious masses, stones, or hydronephrosis. GI tract: Unremarkable. Normal in caliber. No sign of mass or inflammation. Normal appendix. Vasculature: Abdominal aorta is normal in caliber. Lymph nodes: No lymphadenopathy. Peritoneum/Abdominal Wall: Unremarkable. No sign of mass or infiltration. No free air or significant free fluid. Pelvis: uterus. Bones: Unremarkable for age. IMPRESSION: 1. No acute findings in the abdomen or pelvis. Please note that all CT scans at this facility use dose modulation, iterative reconstruction, and/or weight-based dosing when appropriate to reduce radiation dose to as low as reasonably achievable. Dictated by Esther Zheng MD @ 01/19/2024 10:38:30 PM (Electronically Signed)
[2024-01-19] MEDS: ONDANSETRON 2 MG/ML inj 4 MG IVP (21:43)
[2024-01-19] MEDS: KETOROLAC 15 MG/ML inj IVP (21:44)
[2024-01-19 21:47] LABS: Lactate* 0.5 mmol/L (0.5-1.9)
--- OUTSIDE RECORDS SUMMARY | 2024-01-19 21:48 | XMS_ITS | Encounter Summary ---
Author Organization [facility] Address [address] [address] Care Team Providers Care Health Care Coach Name Role Phone Andrew Tellez MD Primary Care Provider Reason for Visit * Reason Comments ASTHMA Encounter Details Date Type Department Care Team (Late st Contact Info) Description 06/13/2023 Telephone [facility] [address] [place] [address] Andrew Tellez MD [address] [place] [address] ASTHMA Social History Tobacco Use Types Packs/Day [...] on filedocumented in this encounter Care Teams Health Care Coach Relationship Specialty Start Date End Date Andrew Tellez MD [address] [place] [address] PCP - General Family Practice 08/24/16 documented as of this encounter
--- OUTSIDE RECORDS SUMMARY | 2024-01-19 21:48 | XMS_ITS | Clinical Summary ---
Author Organization [employer] [facility] [facility] Address [place], [place] [address] Care Team Providers Care Palliative Senior Np Name Role Phone Una Caldera MD Primary [...] Active Problems Problem Noted Date Diagnosed Date [facility] Supervision of high-risk 3 Overview: Oneida Tyler : 1990 [facility] ULTRASOUND/TESTING PATIENT Support person name: Assistant Production Editor: No ULTRASOUND TYPE: L2 REASON FOR VISIT: [...] SPECIALISTS/CONSULTS: Include: Specialty MD Clinic Name Phone# [facility] [place] and ADDED TO PATIENT CARE TEAM Yes Juan Coffey MD [facility], GENETICS: Declines/Not Done CARE COORDINATION: PERTINENT LABS: Labs reviewed? Yes Normal? Yes Blood type: A Rh Negative Antibody screen: Negative Non-[facility] labs need to be entered in EPIC? No PERTINENT MEDS: PROCEDURES: IF FGR <10% [...] 2011 Polycystic ovary syndrome Urinary tract infection [id number] 5x per year Varicella 1997 Past Surgical [...] Department Care Team Description 01/08/2024 Lab Requisition [facility] [phone] Lali Jones MD 12/27/2023 3:00 PM CDT Telemedicine [facility] [address] [facility] [place] [address] Hanna Heard PsyD, ADRIANNA Individual Therapy; Telehealth 12/27/2023 Travel 12/17/2023 Lab Requisition [facility] [phone] Alba Syed MD 11/29/2023 4:00 PM CDT Telemedicine [facility] [address] [place] [address] Hanna Heard PsyD, ADRIANNA Individual Therapy; Telehealth 11/29/2023 11:30 AM CDT Office Visit [facility] [address] [address] Krystle Felix, PhD, LP Care Coordination 11/29/2023 Travel 11/22/2023 11:30 AM CDT Office Visit [facility] [address] [place] [address] Krystle Felix, PhD, Telehealth; Psychotherapy 11/15/2023 5:00 PM CDT Telemedicine [facility] [address] [place] [address] Hanna Heard PsyD, LP Individual Therapy; Telehealth 11/15/2023 11:30 AM CDT Office Visit [facility] [address] [place] [address] Ana Maria Gauthier, [facility] Individual Therapy; Telehealth 11/15/2023 Travel 11/08/2023 11:30 AM CDT Office Visit [facility] [address] [place] [address] Krystle Felix, PhD, Telehealth; Group Therapy 11/07/2023 8:30 AM CDT Telemedicine [facility] [address] [place] [address] Tyra Rock MD Mental Health Intake; Telehealth (Psychiatry - [place] ) 11/07/2023 Travel 11/01/2023 5:00 PM PIPE AND TEST SUPERVISOR Telemedicine [facility] [address] [place] [address] Hanna Heard PsyD, Individual Therapy; Telehealth 11/01/2023 11:30 AM PIPE AND TEST SUPERVISOR Office Visit [facility] [address] [place] [address] Ana Maria Gauthier, [facility] Group Therapy; Telehealth 11/01/2023 Travel 10/25/2023 11:30 AM PIPE AND TEST SUPERVISOR Office Visit [facility] [address] [place] [address] Krystle Felix, PhD, LP Telehealth; Psychotherapy from Last 3 Months Immunizations [...] Info) Description 01/22/2024 4:00 PM CDT Telemedicine [facility] [address] [place] [address] Hanna Heard PsyD, ADRIANNA [address] [place] [address] 02/05/2024 4:00 PM CDT Telemedicine [facility] [address] [place] [address] Hanna Heard PsyD, ADRIANNA [address] [place] [address] 02/15/2024 3:00 PM CDT Telemedicine [facility] [address] [place] [address] [place] [address] Fidenciorustyanjel ALVARADO Tineo [address] Health Maintenance Due Date Last Done Comments [...] Procedure Name Priority Date/Time Associated Diagnosis Comments LAB TRACKING EVENT Routine 01/08/2024 10 :50 AM CDT PATH TISSUE EXAM Routine 01/08/2024 10:5 0 [...] Recently Relevant to Health Maintenance Results * LAB TRACKING EVENT (01/08/2024 10:50 AM CDT) Only the most recent of2 resultswithin the time period is included. Other (Other) Client Collect / Unknown 01/08/2024 10:50 AM CDT 01/08/2024 9:43 PM CDT Lali Jones MD LAB BILL ONLY [facility] [address] [place] [address], * PATH TISSUE EXAM (01/08/2024 10:50 AM CDT) Case Report Pathology Report ?Case: [id number] ? Authorizing Provider: ??Lali Jones MD ??Collected: ? 01/08/2024 1050 ? Ordering Location: ? [facility] ?Received: ?01/09/2024 1107 ? Pathologist: ? Geronimo Cohen MD ? Specimen: ?Endometrial Curettings ? 01/10/2024 5:07 PM CDT [facility]AL LABORATORY Final Diagnosis A) UTERINE CONTENTS, CURETTAGE: 1. Degenerating implantation site, membranes, and chorionic villi consistent with ?clinical impression of retained intrauterine products of conception 2. Negative for abnormal trophoblastic proliferation and malignancy 01/10/2024 5:07 PM CDT [facility] ENTRAL LABORAT[facility] Clinical Information Suspected retained products of conception, s/p delivery 12/17/2023 01/10/2024 5:07 PM CDT [facility] LABORATORY Gross Description A) Received in formalin, labeled with the patient's name and endometrial curettings, is a 6.8 x 3.5 x 0.5 cm aggregate of hemorrhagic, albert fibromembranous tissues admixed with chorionic villi. Welding Rod Coater sections are submitted in five cassettes. Note: Approximately 50% of the tissue submitted KATHARINE 01/09/2024 01/10/2024 5:07 PM CDT [facility] Microscopic Description The final diagnosis is based on microscopic examination of appropriate sections of all specimens. 01/10/2024 5:07 PM CDT [facility] ENTRAL LABORATORY Additional Information Interpreted at [facility], Central Laboratory - [address], [place] [address] 01/10/2024 5:07 PM CDT [facility] Other (Endometrial Curettings) 01/08/2024 10:50 AM CDT 01/09/2024 11:07 AM CDT Lali Jones MD PATHOLOGY/CYTOLO GY [facility] [address] [place] [address], * PATH TISSUE EXAM PLACENTA (12/17/2023 8:45 AM CDT) Case Report Pathology Report ?Case: [id number] ? Authorizing Provider: ??Alba Syed MD ?? Collected: ? 12/17/2023 0845 ? Ordering Location: ? [facility] ?Received: ?12/17/2023 2114 ? Pathologist: ? Amber Chaney MD ? Specimen: ?Placenta ? 12/21/2023 4:57 PM CDT [facility] LABORATORY-C ENTRAL LABORATORY Final Diagnosis A) PLACENTA, [...] disc without infarcts 12/21/2023 4:57 PM CDT [facility] LABORATORY-C ENTRAL LABORATORY Comment Placental features that have been associated with diabetes mellitus include an enlarged placenta, villous immaturity and increased villous vessel density (chorangiosis). 12/21/2023 4:57 PM T [facility] ENTRAL LAB[facility]AT[facility] Clinical Information Enter / Indications Oligohydramnios/Po lyhydramnios Enter Maternal Indications Maternal Diabetes (Gestational or Non) Enter date of delivery 12/17/2023 Enter time of delivery 0842 Enter type of delivery Live born? Yes Enter gestational age (weeks) 39 Enter weight of (grams) 4330 Enter sex of (s) Male 12/21/2023 4:57 PM CDT [facility] Gross Description A) Received fresh labeled [...] parenchyma. No masses or lesions are identified. Welding Rod Coater sections are submitted: 1. ?? membranes and insertion 2. ??Umbilical cord 3. Umbilical cord insertion site 4-5 full-thickness central disc Time and date in formalin: 1217 on 12/19/2023 STN 12/19/2023 12/21/2023 4:57 PM T [facility] Microscopic Description The final diagnosis is based on microscopic examination of appropriate sections of all specimens. 12/21/2023 4:57 PM T [facility] Additional Information Interpreted at [facility], Central Laboratory - [address] [facility] [address], [place] [address] 12/21/2023 4:57 PM T [facility] Tissue SPECIMEN FROM PLACENTA / Unknown 12/17/2023 8:45 AM CDT 12/17/2023 9:14 PM CDT Alba Syed MD PATHOLOGY/CYTOLOG Y [facility] [address] [place] [address], * ANTI HCV (05/04/2023 2:30 PM CDT) HEPATITIS C ANTIBODY Non-Reacti ve Non-React allan 05/07/2023 7:53 PM CDT [facility] Comment:Please note, per www .CDC.gov: [...] Caldera MD SEND OUTS Performing Organization Address [facility] Co de Phone Number [facility] [address] [place] [address], * ANTI HIV 1/2 (05/04/2023 2:30 PM CDT) HIV-1/HIV-2 SCREEN Non-Reacti ve Non-Reacti ve 05/05/2023 5:43 AM CDT [facility] Comment:HIV-1 p24 and HIV-1/ HIV-2 Ab Not Detected. Blood BLOOD SPECIMEN / Unknown Venipuncture / Unknown 05/04/2023 2:30 PM CDT 05/04/2023 2:30 PM CDT Una Caldera MD SEND OUTS Performing Organization Address City/[facility]/ZIP Co de Phone Number [facility] [address] [place] [address], from Last 3 Months or Most Recently Relevant to Health Maintenance Care Teams Palliative Senior Np Relationship Specialty Start Date End Date Una Cladera MD [address] [place] [address] PCP - General Family Practice 05/22/23
--- OUTSIDE RECORDS SUMMARY | 2024-01-19 21:48 | XMS_ITS | Encounter Summary ---
Author Organization [employer] Address [address], [place] [address] Care Team Providers Care Move Coordinator Name Role Phone Andrew Tellez MD Primary Care Provider Encounter Details Date Type Department Care Team (Late st Contact Info) Description 12/20/2023 [facility] DEPARTMENT Provider, [place] [address] [facility] 12/20/2023 Social History Tobacco Use Types [...] on filedocumented in this encounter Care Teams Move Coordinator Relationship Specialty Start Date End Date Andrew Tellez MD [address] [place] [address] PCP - General Family Practice 08/24/16 documented as of this encounter
--- OUTSIDE RECORDS SUMMARY | 2024-01-19 21:48 | XMS_ITS | Clinical Summary ---
Author Organization [employer] Address [address] [place] [address] Care Team Providers Care Instant Powder Supervisor Name Role Phone Andrew Tellez Primary Care Provider [phone] Kennedy Pickens MD Unavailable [phone] Allergies No known active allergies Medications No [...] Glucose (External) 100 60 - 115 mg/dL [facility] Blood 05/11/2023 12:0 0 PM CDT Narrative [facility] - 05/11/2023 12:00 PM CDT [facility]NOTE 2] LAB RESULTS Provider Outside LAB - HIM EXTERNAL R ESULT [facility] [address] [place] [address], [facility] [phone] from Last 3 Months or Most Recently Relevant to Health Maintenance Care Teams Instant Powder Supervisor Relationship Specialty Start Date End Date Andrew Tellez [address] [place] [address] PCP - General 08/19/18 Kennedy Pickens MD [address] [place] [address] [address] [place], [place] [address] Assigned OBGYN Provider 08/04/23
--- OUTSIDE RECORDS SUMMARY | 2024-01-19 21:48 | XMS_ITS | Encounter Summary ---
Author Organization [facility] Address [address] [address] Care Team Providers Care Airplane Rental Clerk Name Role Phone Andrew Tellez MD [...] documented as of this encounter Care Teams Airplane Rental Clerk Relationship Specialty Start Date End Date Andrew Tellez MD [address] [place] [address] PCP - General Family Practice 08/24/16 documented as of this encounter
--- OUTSIDE RECORDS SUMMARY | 2024-01-19 21:48 | XMS_ITS | Encounter Summary ---
Author Organization [facility] Address [address], [place] [address] Care Team Providers Care Driver Trainee Name Role Phone Andrew Tellez MD Primary [...] documented as of this encounter Care Teams Driver Trainee Relationship Specialty Start Date End Date Andrew Tellez MD [address] [place] [address] PCP - General Family Practice 08/24/16 documented as of this encounter
--- OUTSIDE RECORDS SUMMARY | 2024-01-19 21:48 | XMS_ITS | Encounter Summary ---
Author Organization [employer] Address [address] [address] Care Team Providers Care Parker Name Role Phone Andrew Tellez MD Primary Care Provider [phone] Reason for Visit * Procedure/Equipment (Routine) - Incomplete Specialty Diagnoses / Procedures Referred By Ezra greer Referred To Contact Procedures US Pelvic Complete WO EV US Pelvic Complete W EV Christie Ahn PA-C [address] [place] [address] Referral ID Status Reason Start Date Expiration Date V isits Requested Visits Authorized [id number] Incomplete 01/04/2024 04/04/2025 1 1 Encounter Details Date Type Department Care Team (Late st Contact Info) Description 01/04/2024 11:50 AM CDT Ancillary Procedure [facility] Ul[facility]ound [address] [place], [place] [id number] Social History Tobacco Use Types Packs/Day Years [...] EXAM: US PELVIC COMPLETE WO EV LOCATION: [facility] DATE: 01/04/2024 INDICATION: Post (C section) [...] on filedocumented in this encounter Care Teams Parker Relationship Specialty Start Date End Date Andrew Tellez MD [address] [place] [address] PCP - General Family Practice 08/24/16 documented as of this encounter
--- OUTSIDE RECORDS SUMMARY | 2024-01-19 21:48 | XMS_ITS | Referral Summary ---
Author Organization [employer] Address [address] [place] [address] Care Team Providers Care Transportation Lead Name Role Phone Andrew Tellez Primary Care Provider [phone] Kennedy Pickens MD Unavailable [phone] Allergies No known active allergies Medications No [...] Glucose (External) 100 60 - 115 mg/dL [facility] Blood 05/11/2023 12:0 0 PM CDT Narrative [facility] - 05/11/2023 12:00 PM CDT [facility] RESULTS Provider Outside LAB - HIM EXTERNAL R ESULT [facility] [address] [place] [address], [facility] [phone] from Last 3 Months or Most Recently Relevant to Health Maintenance Care Teams Transportation Lead Relationship Specialty Start Date End Date Andrew Tellez [address] [place] [address] PCP - General 08/19/18 Kennedy Pickens MD [address] [address] [address] [place], [place] [address] Assigned OBGYN Provider 08/04/23
--- OUTSIDE RECORDS SUMMARY | 2024-01-19 21:48 | XMS_ITS | Clinical Summary ---
Author Organization [employer] Address [address], [place] [address] Care Team Providers Care Top Dyeing Machine Tender Name Role Phone Andrew Tellez MD Primary Care Provider Source Comments You are receiving this document as you are listed as the primary care provider,follow-up provider, or the patient has been referred to you for consultation.This is in compliance with the Medicare and[facility] EHR Incentive Program,which states Providers who transition their patient to another setting of careor provider of care or refers their patient to another provider of care shouldprovide summary care record for each transition of care or referral. [employer] Allergies Active Allergy Reactions Criticality Noted Date Comments Bee Venom Anaphylaxis High 11/02/2014 Shellfish-Derived Products Anaphylaxis High 05/29/20 16 Medications Medication Sig Dispensed Refills Start Date End Date Status AUVI-Q SOAJ Inject 0.3 mLs into the muscle as needed for Anaphylaxis. December Repeat 2 each 11 09/23/2013 Active methylergonovine [...] Overview: Added automatically from request for surgery [id number] PCOS (polycystic ovarian syndrome) 06/10/2021 Abnormal uterine [...] CDT Ancillary Procedure [facility] [address] [place] [address] 01/04/2024 11:30 AM CDT - 01/04/2024 4:32 PM CDT Emergency [facility] Emergency Dept [address] [place] [address] Jen William MD Hernandez, Bradley S, MD hemorrhage, unspecified type (Primary Dx) Discharge Disposition: Home 12/20/2023 [facility] HIM DEPARTMENT Provider, MD Miri [facility] 12/20/2023 from Last 3 Months Immunizations Name Administration Dates Next Due 4vHPV (Gardasil) 04/09/2007,10/04/2006, 6 DTP 01/30/2001, 4,05/27/1989,1988,01/28/1989 DTaP 01/30/2001, 4,05/27/1989,1988,01/28/1989 Flu Vac (3+ yrs) 06/13/2005,06/04/2004, 3 Flu Vac Preserv Free (3+yrs) 07/22/2010 HepA Ped/Adol (1-18 yrs) 07/28/2005,08/05/2003,1 HepB Ped/Adol (0-18 yrs) 08/23/1999,02/21/1999,0 01/21/1999 HepB, Unspecified Formulation 02/21/1999, 999 Influenza (Flucelvax), Prese rv Free QIV 06/28/2022 Influenza IIV4 (Quadrivalent ) 0.5mL (45178) 06/21/2021,06/18/2018,07/16/2017 Influenza, Unspecified Formulation 06/18/2018 MCV4 (Menactra) [...] 88.5 kg (195 lb) 09/19/2022 9:51 AM CERTIFIED LEGAL SECRETARY SPECIALIST Height 165.1 cm (5' 5) 09/19/2022 9:20 AM CERTIFIED LEGAL SECRETARY SPECIALIST Body Mass Index 32.45 09/19/2022 9:20 AM CERTIFIED LEGAL SECRETARY SPECIALIST Plan of Treatment Health Maintenance Due Date [...] EXAM: US PELVIC COMPLETE WO EV LOCATION: [facility] DATE: 01/04/2024 INDICATION: Post [...] EXAM: US PELVIC COMPLETE WO EV LOCATION: [facility] DATE: 01/04/2024 INDICATION: Post [...] second draw (01/04/2024 12:00 PM CDT) Pathologist [facility] ABO A 01/04/2024 1:17 PM CDT [facility] Negative 01/04/2024 1:17 PM CDT [facility] Blood Venipuncture / Unknown 01/04/2024 12:00 PM CDT 01/04/2024 12:31 PM CDT Emmanuelle Gary MD LAB_1 Performing Organization Address [facility] de Phone Number [facility] [address] * Antibody Identification (01/04/2024 11:44 AM CDT) Pathologist [facility] Antibody Identification Passive D Antibody, Patient Received RHIG 01/04/2024 2:32 PM CDT [facility] Blood Venipuncture / Unknown 01/04/2024 11:44 AM CDT 01/04/2024 11:51 AM CDT Christie Ahn PA-C LAB_1 Performing Organization Address [facility] de Phone Number [facility] [address] * Antibody Screen (01/04/2024 11:44 AM CDT) [facility] Antibody Screen Interpretation Positive 01/04/2024 2:31 PM CDT [facility] Blood Venipuncture / Unknown 01/04/2024 11:44 AM CDT 01/04/2024 11:51 AM CDT Christie O Anabelle PA-C LAB_1 [facility] [address] * Blood Type (01/04/2024 11:44 AM CDT) ABO A 01/04/2024 2:31 PM CDT [facility] RH Negative 01/04/2024 2:31 PM CDT [facility] Blood Venipuncture / Unknown 01/04/2024 11:44 AM CDT 01/04/2024 11:51 AM CDT Christie Ahn PA-C LAB_1 Performing Organization Address [facility]/ZIP Co de Phone Number [facility] [address] * Basic Metabolic Panel (01/04/2024 11:44 AM CDT) Sodium 139 136 - 145 mmol/L 01/04/2024 12:26 PM [facility] Potassium 3.6 3.5 - 5.1 mmol/L 01/04/2024 12:26 PM [facility] Chloride 107 98 - 109 mmol/L 01/04/2024 12:26 PM [facility] CO2 23 20 - 29 mmol/L 01/04/2024 12:26 PM [facility] Anion Gap 9 6 - 16 mmol/L 01/04/2024 12:26 PM [facility] Calcium 9.1 8.4 - 10.4 mg/dL 01/04/2024 12:26 PM [facility] BUN 10 7 - 26 mg/dL 01/04/2024 12:26 PM [facility] Creatinine 0.74 0.55 - 1.02 mg/dL 01/04/2024 12:26 PM [facility] Glucose 85 70 - 100 mg/dL 01/04/2024 12:26 PM [facility] Comment:The given reference range is for the fasting state. Non-fasting reference range for glucose is 70 - 180 mg/dL. GFR, Estimated >60 >60 mL/min/1.7 3m2 01/04/2024 12:26 PM [facility] Blood Venipuncture / Unknown 01/04/2024 11:44 AM CDT 01/04/2024 11:51 AM CDT Christie Ahn PA-C LAB_[address] * (ABNORMAL) Complete Blood Count no Diff (01/04/2024 11:44 AM CDT) WBC 7.7 3.5 - 10.5 x10(9)/L 01/04/2024 11:58 AM [facility] RBC 4.32 3.90 - 5.03 x10(12)/L 01/04/2024 11:58 AM [facility] Hemoglobin 11.4(L) 12.0 - 15.5 g/dL 01/04/2024 11:58 AM [facility] HCT 36.2 34.9 - 44.5 % 01/04/2024 11:58 AM [facility] MCV 83.8 80.0 - 100.0 fL 01/04/2024 11:58 AM [facility] MCH 26.4(L) 27.6 - 33.3 pg 01/04/2024 11:58 AM [facility] MCHC 31.5 31.5 - 35.2 g/dL 01/04/2024 11:58 AM [facility] RDW 14.2 11.9 - 15.5 % 01/04/2024 11:58 AM [facility] Platelets 391 150 - 450 x10(9)/L 01/04/2024 11:58 AM [facility] Automated NRBC 0 <=0 /100 WBC 01/04/2024 11:58 AM [facility] Blood Venipuncture / Unknown 01/04/2024 11:44 AM CDT 01/04/2024 11:51 AM CDT Christie Ahn PA-C LAB_[address] * INR/Protime (01/04/2024 11:44 AM CDT) [facility] Protime 12.3 11.8 - 14.6 Seconds 01/04/2024 12:06 PM CDT [facility] INR 0.9 0.9 - 1.1 01/04/2024 12:06 PM T [facility] Blood Venipuncture / Unknown 01/04/2024 11:44 AM CDT 01/04/2024 11:52 AM CDT [facility] 01/04/2024 12:06 PM CDT If you take an anticoagulant medicine called warfarin, your doctor or clinician may establish a normal range for you that is different from the baseline range shown. Christie Ahn PA-C LAB_1 Performing Organization Address City/State/[facility] Co de Phone Number [id number] [place] [address] * PAP Test (03/14/2022 4:20 PM CDT) [facility] Case Report Pap ? Case: [id number] ? Authorizing Provider: ??Petrona Carvalho MD ?Collected: ? 03/14/2022 1620 ? Ordering Location: ? [facility] ? Received: ?03/14/2022 1635 ? Services-BLENDING TECHNICIAN ? First Screen: ?Shannan Marks ? Specimen: ?Pap Test, Routine, Cervix/Endocervix ? 03/23/2022 3:59 PM CDT [facility] Pap Specimen Adequacy Satisfactory for evaluation, endocervical/adame sformation zone component present. 03/23/2022 3:59 PM CDT [facility] Pap Interpretation (NILM) Negative for intraepithelial lesion or malignancy. 03/23/2022 3:59 PM CDT [facility] Pap Disclaimer The Pap test is a screening test designed to aid in the detection of cervical cancer and its precursor lesions. It is not a diagnostic procedure and should not be used as the sole means of detecting cervical cancer. Both false-positive and false-negative results may occur. 03/23/2022 3:59 PM CDT [facility] Gross Description The specimen is received in SurePath fixative and properly labeled. 1 Pap-stained SurePath slide is prepared. 03/23/2022 3:59 PM CDT [facility] Embedded Images 3:59 PM CDT [facility] Other Specimen Type ENTIRE ENDOCERVIX / Unknown 03/14/2022 4:20 PM CDT 03/14/2022 4:35 PM CDT Comment:LMP: Patient's last menstrual period was 02/24/2022. Petrona Carvalho MD LAB PATHOLOGY [facility] [address] from Last 3 Months or Most Recently Relevant to Health Maintenance Advance Directives * Full Code (Latest Code Status on File) Date Activated Date Inactivated Comments 09/29/2022 12:33 PM 09/29/2022 4:25 PM Care Teams Top Dyeing Machine Tender Relationship Specialty Start Date End Date Andrew Tellez MD [address] [place] [address] PCP - General Family Practice 08/24/16
--- OUTSIDE RECORDS SUMMARY | 2024-01-19 21:48 | XMS_ITS | Encounter Summary ---
Author Organization [facility] Address [address], [place] [address] Care Team Providers Care Seo Consultant Name Role Phone Andrew Tellez MD Primary Care Provider [phone] Reason for Referral * Procedure/Equipment (Routine) - Incomplete Specialty Diagnoses / Procedures Referred By Ezra t Referred To Contact Procedures US Pelvic Complete WO EV US Pelvic Complete W EV Christie Ahn PA-C [address] [place] [id number] Referral ID Status Reason Start Date Expiration Date V isits Requested Visits Authorized [id number] Incomplete 01/04/2024 04/04/2025 1 1 Reason for Visit * Reason Comments VAGINAL BLEEDING Encounter Details Date Type Department Care Team ([facility] st Contact Info) Description 01/04/2024 11:30 AM CDT - 01/04/2024 4:32 PM CDT Emergency [facility] Emergency Dept [address] [place] [id number] Jen William MD [address] [place], [place] [id number] Wyatt Bang MD [address] [place] [address] hemorrhage, unspecified type (Primary Dx) Discharge Disposition: [...] measures. - follow up closely with your TAKE DOWN INSPECTOR team - return to the ED for any new/concerning/worsening of symptoms including, but not limited to increasing bleeding, chest pain, dizziness/lightheadedness, syncope or any other worrisome symptoms. * Attachments The following attachments cannot be sent through Care Everywhere. * Hemorrhage (Thai) documented in this encounter Medications at Time [...] MANAGEMENT AFTER HOURS DISCHARGE 01/07/24 1:54 PM Extrusion Die Corrector Note: ED CM asked to assist with OBGYN referral. Patient was seen [facility] on 01/04/24 for vaginal bleeding and lower abd cramping, s/p 18 days ago. Reviewed chart. Insurance: [employer] ins Primary care physician: Andrew Tellez at [facility] Specialty care providers: OBGYN [place] ED CM attempted to reach patient. Left voicemail requesting a call back. ED CM will try to reach patient again X 1 . Lana Burk RN-[facility] heat pump installer * April Ford MD - 01/04/2024 3:33 PM CDTAssociated Order(s): TAKE DOWN INSPECTOR CONSULT Gynecology Consult DOS: 01/04/2024 Naman Bateman Nayeli [id number] Reason for consult: bleeding HPI: Naman Tyler is a 33 y.o. POD#18 [...] bolus 1,000 mL, 1,000 mL, Intravenous, Once, Crhistie Ahn PA-C, Stopped at 01/04/24 1251 AUVI-Q [...] EXAM: US PELVIC COMPLETE WO EV LOCATION: [facility] DATE: 01/04/2024 INDICATION: Post (C [...] Discussed with Dr. Ford. Brenda Villalobos MD TAKE DOWN INSPECTOR PGY-2 01/04/2024 3:34 PM TAKE DOWN INSPECTOR STAFF: I reviewed the patient's course, VS [...] Choi RN - 01/04/2024 4:32 PM CDT Extrusion Die Corrector Note: 01/08/24 1:03 PM ED CM asked to assist patient with OB follow up after an ED visit. Call to patient and she had emergency surgery today and she requested call or contact centre coach to place a compliant about being d/c. Patient Rep number provided. Referral closed. Eladia Coronado RNC, BSN, MHA, CCM, ACM-RN Lead heat pump installer * Rola Jacome RN - 01/04/2024 4:15 PM CDT 4:15 PM Patient given verbal and printed discharge education and materials, patient verbalized understanding. Patient instructed where to mushroom picker discharge medications, patient verbalized understanding. IV removed. VSS upon discharge. All personal belongings present with patient at time of discharge. Patient taken to lobby in wheelchair. Patient dressed weather appropriate. * Christie Ahn PA-C - 01/04/2024 11:40 AM CDT [facility] Emergency Medicine Visit Note Chief Complaint: Chief [...] surgeries. HISTORY SOURCE: Patient Chart Review: 12/17/23: [facility]. - 39 1/7 weeks gestation scheduled [...] no masses or organomegaly. : Performed with deli/bakery associate, trace dark red blood at external vaginal [...] visit, and supervised patient care with the cone operator. [GG] 1247 Basic Metabolic Panel No significant [...] evaluation and recommendations. [CM] 1343 Spoke with TAKE DOWN INSPECTOR, no indication for D&C at this time. Would recommend discussing medical management. Reviewed US---do not believe emergent D&C indicated at this time. Will see patient to discuss management. [CM] 1511 Evaluated by TAKE DOWN INSPECTOR: met with patient and discussed work up, reassuring. At this time, patientappropriate for d/c home with close out patient follow up and strict return precautions. OB to write rx for 24 h course of methergine tid with initial dose in ED. [CM] 1512 Sign out received, assumed care at this time. [TS] ED Course User Index [CM] Christie Ahn PA-C [GG] Jen iWlliam MD [TS] Bryn Staton PA-C Clinical Impressions [...] 11:28 AM CDT Patient brought in by [facility]. Gave on 12/16 via [...] EXAM: US PELVIC COMPLETE WO EV LOCATION: [facility] DATE: 01/04/2024 INDICATION: Post (C [...] EXAM: US PELVIC COMPLETE WO EV LOCATION: [facility] DATE: 01/04/2024 INDICATION: Post (C [...] cannot bedocumented transabdominally. Christie Ahn PA-C RAD * Blood Type second draw (01/04/2024 12:00 PM CDT) Pathologist [facility] ABO A 01/04/2024 1:17 PM CDT [facility] Negative 01/04/2024 1:17 PM CDT [facility] Blood Venipuncture / Unknown 01/04/2024 12:00 PM CDT 01/04/2024 12:31 PM CDT Emmanuelle Gary MD LAB_1 Performing Organization Address City/[facility]/ZIP Co de Phone Number [facility] [address] * Antibody Identification (01/04/2024 11:44 AM CDT) [facility] Antibody Identification Passive D Antibody, Patient Received RHIG 01/04/2024 2:32 PM CDT [facility] Blood Venipuncture / Unknown 01/04/2024 11:44 AM CDT 01/04/2024 11:51 AM CDT Christie Ahn PA-C LAB_1 Performing Organization Address City/[facility]/ZIP Co de Phone Number [facility] [address] * Antibody Screen (01/04/2024 11:44 AM CDT) [facility] Antibody Screen Interpretation Positive 01/04/2024 2:31 PM CDT [facility] Blood Venipuncture / Unknown 01/04/2024 11:44 AM CDT 01/04/2024 11:51 AM CDT Christie Ahn PA-C LAB_1 Performing Organization Address [facility]/ZIP Co de Phone Number [facility] [address] [place] [address] * Blood Type (01/04/2024 11:44 AM CDT) Pathologist [facility] ABO A 01/04/2024 2:31 PM CDT [facility] RH Negative 01/04/2024 2:31 PM CDT [facility] Blood Venipuncture / Unknown 01/04/2024 11:44 AM CDT 01/04/2024 11:51 AM CDT Christie Ahn PA-C LAB_1 [facility] [address] * INR/Protime (01/04/2024 11:44 AM CDT) Pathologist [facility] Protime 12.3 11.8 - 14.6 Seconds 01/04/2024 12:06 PM CDT [facility] INR 0.9 0.9 - 1.1 01/04/2024 12:06 PM CDT [facility] Blood Venipuncture / Unknown 01/04/2024 11:44 AM CDT 01/04/2024 11:52 AM CDT Narrative [facility] - 01/04/2024 12:06 PM CDT If you take an anticoagulant medicine called warfarin, your doctor or clinician may establish a normal range for you that is different from the baseline range shown. Christie Ahn PA-C LAB_1 Performing Organization Address [facility] Co de Phone Number [address] * Basic Metabolic Panel (01/04/2024 11:44 AM CDT) Pathologist [facility] Sodium 139 136 - 145 mmol/L 01/04/2024 12:26 PM CDT [facility] Potassium 3.6 3.5 - 5.1 mmol/L 01/04/2024 12:26 PM CDT [facility] Chloride 107 98 - 109 mmol/L 01/04/2024 12:26 PM CDT [facility] CO2 23 20 - 29 mmol/L 01/04/2024 12:26 PM CDT [facility] Anion Gap 9 6 - 16 mmol/L 01/04/2024 12:26 PM CDT [facility] Calcium 9.1 8.4 - 10.4 mg/dL 01/04/2024 12:26 PM [facility] BUN 10 7 - 26 mg/dL 01/04/2024 12:26 PM [facility] Creatinine 0.74 0.55 - 1.02 mg/dL 01/04/2024 12:26 PM [facility] Glucose 85 70 - 100 mg/dL 01/04/2024 12:26 PM [facility] Comment:The given reference range is for the fasting state. Non-fasting reference range for glucose is 70 - 180 mg/dL. GFR, Estimated >60 >60 mL/min/1.7 3m2 01/04/2024 12:26 PM [facility] Blood Venipuncture / Unknown 01/04/2024 11:44 AM CDT 01/04/2024 11:51 AM CDT Christie Ahn PA-C LAB_1 Performing Organization Address City/[facility] de Phone Number [address] * (ABNORMAL) Complete Blood Count no Diff (01/04/2024 11:44 AM CDT) WBC 7.7 3.5 - 10.5 x10(9)/L 01/04/2024 11:58 AM [facility] RBC 4.32 3.90 - 5.03 x10(12)/L 01/04/2024 11:58 AM [facility] Hemoglobin 11.4(L) 12.0 - 15.5 g/dL 01/04/2024 11:58 AM [facility] HCT 36.2 34.9 - 44.5 % 01/04/2024 11:58 AM [facility] MCV 83.8 80.0 - 100.0 fL 01/04/2024 11:58 AM [facility] MCH 26.4(L) 27.6 - 33.3 pg 01/04/2024 11:58 AM [facility] MCHC 31.5 31.5 - 35.2 g/dL 01/04/2024 11:58 AM [facility] RDW 14.2 11.9 - 15.5 % 01/04/2024 11:58 AM [facility] Platelets 391 150 - 450 x10(9)/L 01/04/2024 11:58 AM T [facility] Automated NRBC 0 <=0 /100 WBC 01/04/2024 11:58 AM [facility] Blood Venipuncture / Unknown 01/04/2024 11:44 AM CDT 01/04/2024 11:51 AM CDT Christie Ahn PA-C LAB_[address] documented in this encounter Visit Diagnoses [...] RN) documented in this encounter Care Teams Seo Consultant Relationship Specialty Start Date End Date Andrew Tellez MD [address] [place] [address] PCP - General Family Practice 08/24/16 documented as of this encounter
--- OUTSIDE RECORDS SUMMARY | 2024-01-19 21:48 | XMS_ITS | Encounter Summary ---
Author Organization [facility] Address [address], [place] [address] Care Team Providers Care Nurse Staff Community Health Name Role Phone Andrew Tellez MD Primary Care Provider [phone] Encounter Details Date Type Department Care Team (Late st Contact Info) Description 07/13/2023 Telephone [facility] [address] [place] [address] Andrew Tellez MD [address] [place] [address] Social History Tobacco Use Types Packs/Day Years [...] on filedocumented in this encounter Care Teams Nurse Staff Community Health Relationship Specialty Start Date End Date Andrew Tellez MD [address] [place] [address] PCP - General Family Practice 08/24/16 documented as of this encounter
[2024-01-19 21:51] LABS: Basophils Absolute Auto 0.07 K/uL (0.00-0.30); Basophils Percent Auto 0.9 % (0.0-3.0); Eosinophils Absolute Auto 0.27 K/uL (0.00-0.50); Eosinophils Percent Auto 3.4 % (0.0-7.0); Hematocrit 35.7 % (33.0-51.0); Hemoglobin* 11.1 gm/dL (12.0-16.0); Immature Granulocytes Abs Auto 0.01 K/uL (0.00-0.30); Immature Granulocytes Pct Auto 0.1 %; Lymphocytes Absolute Auto 2.45 K/uL (0.90-2.90); Lymphocytes Percent Auto 30.7 % (20-44); Mean Corpuscular HGB Conc 31 gm/dL (32-36); Mean Corpuscular Hemoglobin 26 pg (26-34); Mean Corpuscular Volume 84 fL (80-100); Monocytes Percent Auto 8.6 % (0.0-11.0); Neutrophils Absolute Auto 4.49 K/uL (1.7-7.0); Neutrophils Percent Auto 56.3 % (42.0-72.0); Platelet Count* 301 K/uL (140-440); RDW Coefficient of Variation % 13.9 % (11.5-15.5); Red Blood Count 4.23 m/uL (4.00-5.20); White Blood Count* 7.98 K/uL (4.50-11.00)
[2024-01-19 21:52] LABS: Slide Review Reflex No
[2024-01-19 22:03] LABS: Albumin* 4.2 g/dL (3.3-5.0); Chloride* 108 mmol/L (96-114); Sodium* 138 mmol/L (135-149)
[2024-01-19 22:04] LABS: Potassium* 3.7 mmol/L (3.6-5.1)
[2024-01-19 22:06] LABS: Creatinine* 0.7 mg/dL (0.5-1.5); Est. Creatinine Clearance* 105.01; Estimated Glomerular Filt Rate 116 ml/min
[2024-01-19 22:07] LABS: Alanine Aminotransferase* 28 U/L (4-35); Alkaline Phosphatase* 62 U/L (40-150); Anion Gap 3 mEq/L (7-15); Aspartate Amino Transferase* 32 U/L (12-35); Bilirubin Direct* 0.4 mg/dL (0.0-0.5); Bilirubin Total* 0.5 mg/dL (0.1-1.5); Blood Urea Nitrogen* 14 mg/dL (5-24); Calcium* 8.9 mg/dL (8.4-10.6); Carbon Dioxide* 27 mmol/L (20-32); Glucose* 86 mg/dL (60-115); Lipase* 141 U/L (23-300); Total Protein* 7.1 g/dL (6.0-8.3)
[2024-01-19 22:09] LABS: C Reactive Protein* 0.5 mg/dL (0.5-1.0)
[2024-01-19] MEDS: 0.9 % SODIUM CHLORIDE 1000 ml 1,000 ML 500 ML IV (22:09)
[2024-01-19 23:05] LABS: Troponin I* 0.02 ng/mL (0.01-0.04)
== END 2024-01-19 23:29 | disposition home or self-care (01) ==
PROVIDERS: Emergency Provider Family Medicine; PCP Obstetrics & Gynecology
DX: R10.30 Lower abdominal pain, unspecified (principal)
CPT/HCPCS: 36415; 74177; 80053; 82248; 83605; 83690; 84484; 85025; 86140; 96374; 96375; 99284; J1885; J2405; J7030; Q9967

== ENCOUNTER 2024-06-12 09:18 | Outpatient (CLI) | payer OTHER, SELFPAY ==
--- OUTSIDE RECORDS SUMMARY | 2024-06-12 09:21 | XMS_ITS | Referral Summary ---
Author Organization [facility] Address [address] [place] [address] Care Team Providers Care Mining And Quarrying Machinery Repairer Name Role Phone Andrew Tellez Primary Care Provider Kennedy Pickens MD Unavailable [phone] Allergies No known active allergies Medications No [...] School Help Needed Not on file 07/10 Sex and Gender Information Value Date Recorded [...] Glucose (External) 100 60 - 115 mg/dL [facility] Blood 05/11/2023 12:0 0 PM CDT Narrative [facility] - 05/11/2023 12:00 PM CDT [facility] LAB RESULTS Provider Outside LAB - HIM EXTERNAL R ESULT [facility] [address] [id number] [phone] from Last 3 Months or Most Recently Relevant to Health Maintenance Care Teams Mining And Quarrying Machinery Repairer Relationship Specialty Start Date End Date Andrew Tellez [address] [place] [address] PCP - General 08/19/18 Kennedy Pickens MD [address] [place] [address] Assigned OBGYN Provider 08/04/23
--- OUTSIDE RECORDS SUMMARY | 2024-06-12 09:21 | XMS_ITS | Encounter Summary ---
Author Organization [facility] Address [address], [place] [address] Care Team Providers Care Senior Data Analyst Name Role Phone Andrew Tellez MD Primary Care Provider [phone] Encounter Details Date Type Department Care Team [...] documented as of this encounter Care Teams Senior Data Analyst Relationship Specialty Start Date End Date Andrew Tellez MD [address] [place] [address] PCP - General Family Practice 08/24/16 documented as of this encounter
--- OUTSIDE RECORDS SUMMARY | 2024-06-12 09:21 | XMS_ITS | Clinical Summary ---
Author Organization [facility] Address [address] [place] [address] Care Team Providers Care Mailroom Manager Name Role Phone Andrew Tellez Primary Care Provider [phone] Kennedy Pickens MD Unavailable [phone] Allergies No known active allergies Medications No [...] PAP 2009 YEARLY PREVENTIVE VISIT 07/15/2019 07/15/2018 PHQ-2 (once per calendar year) 2023 COVID-19 Vaccine ( season) 2024 06/08/2023, 05/04/2022, 07/04/2021, Additional history exists INFLUENZA VACCINE (#1) 2024 , 06/28/2022, 06/21/2021, Additional history exists DTAP/TDAP/TD IMMUNIZATION (8 - Td or Tdap) 02/22/2025 02/22/2015, 01/30/2001, 01/30/2001, Additional history exists GLUCOSE 05/11/2026 05/11/2023, 02/24, 03/11/2019, Additional history exists RSV VACCINE (1 - 1-dose 75+ series) 11/26/2063 HEPATITIS B IMMUNIZATION Completed 999, 02/21/1999, 02/21/1999, Additional history exists MENINGITIS IMMUNIZATION Completed 07/28/2005 HPV IMMUNIZATION Completed 04/09/2007, 03/2007, 08/02/2006 Pneumococcal Vaccine: Pediatrics (0 to 5 Years) [...] Glucose (External) 100 60 - 115 mg/dL [facility] Blood 05/11/2023 12:0 0 PM CDT Narrative [facility] - 05/11/2023 12:00 PM CDT [facility] LAB RESULTS Provider Outside LAB - HIM EXTERNAL R ESULT [facility] [address] [place], [place] [address] [phone] from Last 3 Months or Most Recently Relevant to Health Maintenance Care Teams Mailroom Manager Relationship Specialty Start Date End Date Andrew Tellez [address] [place] [address] PCP - General 08/19/18 Kennedy Pickens MD [address] [address] Assigned OBGYN Provider 08/04/23
--- OUTSIDE RECORDS SUMMARY | 2024-06-12 09:21 | XMS_ITS | Encounter Summary ---
Author Organization [employer] Address [address] [place] [address] Care Team Providers Care Technician Assistant Name Role Phone Andrew Tellez MD Primary Care Provider [phone] Encounter Details Date Type Department Care Team (Late st Contact Info) Description 04/17/2024 Notes/Orders [place] [address] [facility] [address] [place] [address] [place] [address] [place], [place] [id number] Encounter for screening examination for mental health and behavioral disorders (Primary Dx) Social History Tobacco Use Types Packs/Day Years [...] Answer Date Recorded PHQ-2 Score 2 09/19/2022 Depression Answer Date Recor ded Last EPDS Total Score 9 04/17/2024 Last EPDS Self Harm Result 0-->never 04/17 Sex and Gender Information Value Date Recorded Sex Assigned at Not on file Gender Identity Not on file Sexual Orientation Not on file documented as of this encounter Plan of Treatment Not on file documented as of this encounter Visit Diagnoses Diagnosis Encounter for screening examination for mental health and behavioral disorders- Primary documented in this encounter Care Teams Technician Assistant Relationship Specialty Start Date End Date Andrew Tellez MD [address] [place] [address] PCP - General Family Practice 08/24/16 documented as of this encounter
--- OUTSIDE RECORDS SUMMARY | 2024-06-12 09:21 | XMS_ITS | Clinical Summary ---
Author Organization [employer] Address [address] [address] Care Team Providers Care Protective Services Case Worker Name Role Phone Andrew Tellez MD Primary Care Provider [phone] Source Comments You are receiving this document as you are listed as the primary care provider,follow-up provider, or the patient has been referred to you for consultation.This is in compliance with the Medicare and[facility] EHR Incentive Program,which states Providers who transition their patient to another setting of careor provider of care or refers their patient to another provider of care shouldprovide summary care record for each transition of care or referral. [employer] Allergies Active Allergy Reactions Criticality Noted Date [...] times a day. 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 Generalized anxiety disorder 11/02/2014 PTSD (post-traumatic stress disorder) 11/02/2014 Allergic rhinitis 11/02/2014 Overview (11/02/2014): Cat dander, spring Asthma, mild intermittent 11/02/2014 Resolved Problems Problem Noted Date Diagnosed Date Resolved Date Anxiety 11/02/2014 05/19/2020 Overview (09/18/2018): Significant OCD traits, r/o diagnosis of OCD Encounters Date Type Department Care Team Description 04/17/2024 Notes/Orders [place] [address] [facility] [address] [place] [address] Gurdeep Cardoza MD Encounter for screening examination for mental health and behavioral disorders (Primary Dx) from Last 3 Months Immunizations Name Administration Dates Next Due 4vHPV (Gardasil) 04/09/2007,10/04/2006, 6 DTP 01/30/2001, 4,05/27/1989,1988,01/28/1989 DTaP 01/30/2001, 4,05/27/1989,1988,01/28/1989 Flu Vac (3+ yrs) 06/13/2005,06/04/2004, 3 Flu Vac Preserv Free (3+yrs) 07/22/2010 HepA Ped/Adol (1-18 yrs) 07/28/2005,08/05/2003,1 HepB Ped/Adol (0-18 yrs) 08/23/1999,02/21/1999,0 01/21/1999 HepB, Unspecified Formulation 02/21/1999, 999 Influenza (Flucelvax), Prese rv Free QIV 06/28/2022 Influenza IIV4 (Quadrivalent ) 0.5mL (35163) 06/21/2021,06/18/2018,07/16/2017 Influenza, Unspecified Formulation 06/18/2018 MCV4 (Menactra) [...] 88.5 kg (195 lb) 09/19/2022 9:51 AM INFORMATION ASSURANCE MANAGER Height 165.1 cm (5' 5) 09/19/2022 9:20 AM INFORMATION ASSURANCE MANAGER Body Mass Index 32.45 09/19/2022 9:20 AM INFORMATION ASSURANCE MANAGER Plan of Treatment Health Maintenance Due Date Last Done Comments Hep C Screening (Preventive Services) 1988 Pneumococcal (1 - PCV) 1994 Adult Preventive Visit 07/15/2020 07/15/2018, 2015 COVID-19 Vaccine ( season) 2024 05/04/2022, 07/04/2021, 10/21/2020, Additional history exists Influenza (#1) 2024 05/23/2023, 09/2021, 06/21/2021, Additional history exists Asthma ACT 06/13/2024 06/13/2023, [...] (Preventive Services) Completed 05/17/2023, 05/04/2023, 03/24/2014 (Completed) Hib Aged Out No longer eligi ble based on patient's age to complete this topic Infant RSV Aged Out No longer eligi ble based on patient's age to complete this topic Procedures Procedure Name Priority Date/Time Associated Diagnosis Comments PAP TEST Routine 03/14/2022 4:20 PM CDT Cervical cancer screening from Last 3 Months or Most Recently Relevant to Health Maintenance Results * PAP Test (03/14/2022 4:20 PM CDT) Case Report Pap ? Case: [id number] ? Authorizing Provider: ??Petrona Carvalho MD ?Collected: ? 03/14/2022 1620 ? Ordering Location: ? [facility] ? Received: ?03/14/2022 1635 ? Services-HANDLE LATHE OPERATOR ? First Screen: ?Shannan Marks ? Specimen: ?Pap Test, Routine, Cervix/Endocervix ? 03/23/2022 3:59 PM CDT [facility] Pap Specimen Adequacy Satisfactory for evaluation, endocervical/adame sformation zone component present. 03/23/2022 3:59 PM CDT [facility] Pap Interpretation (NILM) Negative for intraepithelial lesion or malignancy. 03/23/2022 3:59 PM CDT [facility] Pap Disclaimer The Pap test is a screening test designed to aid in the detection of cervical cancer and its precursor lesions. It is not a diagnostic procedure and should not be used as the sole means of detecting cervical cancer. Both false-positive and false-negative results may occur. 03/23/2022 3:59 PM CDT [facility] Gross Description The specimen is received in SurePath fixative and properly labeled. 1 Pap-stained SurePath slide is prepared. 03/23/2022 3:59 PM CDT [facility] Embedded Images 3:59 PM CDT [facility] Other Specimen Type ENTIRE ENDOCERVIX / Unknown 03/14/2022 4:20 PM CDT 03/14/2022 4:35 PM CDT Comment:LMP: Patient's last menstrual period was 02/24/2022. Petrona Carvalho MD LAB PATHOLOGY [facility] [address] [employer] [address] from Last 3 Months or Most Recently Relevant to Health Maintenance Advance Directives * Full Code (Latest Code Status on File) Date Activated Date Inactivated Comments 09/29/2022 12:33 PM 09/29/2022 4:25 PM Care Teams Protective Services Case Worker Relationship Specialty Start Date End Date Andrew Tellez MD [address] [place] [address] PCP - General Family Practice 08/24/16
--- OUTSIDE RECORDS SUMMARY | 2024-06-12 09:21 | XMS_ITS | Encounter Summary ---
Author Organization [employer] Address [address], [place] [address] Care Team Providers Care Patient Navigator Name Role Phone Andrew Tellez MD Primary Care Provider [phone] Encounter Details Date Type Department Care [...] documented as of this encounter Care Teams Patient Navigator Relationship Specialty Start Date End Date Andrew Tellez MD [address] [place] [address] PCP - General Family Practice 08/24/16 documented as of this encounter
== END 2024-06-12 09:19 | disposition home or self-care (01) ==
PROVIDERS: Visit Provider Obstetrics & Gynecology
DX: D64.9 Anemia, unspecified (principal); L65.9 Nonscarring hair loss, unspecified
CPT/HCPCS: 83540; 83550; 84443

== ENCOUNTER 2025-03-27 20:29 | Emergency (ER) | payer OTHER, SELFPAY ==
--- OUTSIDE RECORDS SUMMARY | 2025-03-27 20:31 | XMS_ITS | Encounter Summary ---
Author Organization [employer] Address [address] [address] Care Team Providers Care Professional Volleyball Player Name Role Phone Andrew Tellez MD Primary Care Provider Encounter Details Date Type Department Care Team (Late st Contact Info) Description 10/09/2008 Scanned History External to Transferred Record, Provider [facility] Social History Tobacco Use Types Packs/Day Years Used Date Smoking Tobacco: Never Assessed Comments Unknown Sex and Gender Information Value Date Recorded Sex Assigned at Not on file Legal Sex Female 4:47 AM CDT Gender Identity Not on file Sexual Orientation [...] documented as of this encounter Care Teams Professional Volleyball Player Relationship Specialty Start Date End Date Andrew Tellez MD [address] [place] [address] PCP - General Family Practice 08/24/16 documented as of this encounter
--- OUTSIDE RECORDS SUMMARY | 2025-03-27 20:31 | XMS_ITS | Clinical Summary ---
Author Organization [employer] Address [address] [place] [address] Care Team Providers Care Infrastructure Technician Name Role Phone Andrew Tellez Primary Care Provider Allergies No known active allergies Medications No [...] School Help Needed Not on file 07/10 Comments No Sex and Gender Information Value Date Recorded Sex Assigned at Not on file Legal Sex Female 4:40 AM FISCAL TECHNICIAN Gender Identity Not on file Sexual Orientation Not on file Last Filed Vital Signs Vital Sign Reading Time Taken Comments Blood Pressure 129/84 03/11/2019 3:12 PM CDT Pulse 88 03/11/2019 3:12 PM CDT Temperature 36.7 C (98.1 F) 03/11/2019 1:44 PM CDT Respiratory Rate 21 03/11/2019 3:14 PM CDT Oxygen Saturation 97% 03/11/2019 3:14 PM CDT Inhaled Oxygen Concentration - - Weight 73.6 kg (162 lb 4.1 oz) 03/11/2019 1:44 P M CDT Height - - Body Mass Index - - Plan of Treatment Health Maintenance Due Date Last Done Comments ADVANCE CARE PLANNING 1988 ANNUAL REVIEW OF HM ORDERS 1988 PAP 2009 YEARLY PREVENTIVE VISIT 07/15/2019 07/15/2018 COVID-19 VACCINE ( season) 2024 06/08/2023, 05/04/2022, 07/04/2021, Additional history exists PHQ-2 (once per calendar year) 2024 DTAP/TDAP/TD VACCINE (8 - Td or Tdap) 02/22/2025 02/22/2015, 01/30/2001, 01/30/2001, Additional history exists INFLUENZA VACCINE (#1) 2025 , 06/28/2022, 06/21/2021, Additional history exists DIABETES SCREENING 05/11/2026 05/11/2023, 0 03/11/2019, 03/11/2019, Additional history exists ZOSTER VACCINE (1 of 2) 2038 HEPATITIS B VACCINE Completed 08/23/1999, 02/21/1999, 02/21/1999, Additional history exists MENINGITIS VACCINE Completed 07/28/2005 HPV VACCINE Completed 04/09/2007, 03/2007, 08/02/2006 HEPATITIS C SCREENING Completed 05/04/2023 HIV SCREENING Completed 05/04/2023 PNEUMOCOCCAL VACCINE: PEDIATRICS (0 to 5 YEARS) AND AT-RISK PATIENTS (6 to 49 YEARS) Aged Out No longer eligible based on patient's age to complete this topic Procedures Procedure Name Priority Date/Time Associated Diagnosis Comments GLUCOSE (EXTERNAL RESULT) Routine 05/11/2023 12:00 PM CDT from Last 3 Months or Most Recently Relevant to Health Maintenance Results * (ABNORMAL) Glucose (External Result) (05/11/2023 12:00 PM CDT) Glucose (External) 100 60 - 115 mg/dL [facility] Blood 05/11/2023 12:0 0 PM CDT Narrative [facility] - 05/11/2023 12:00 PM CDT [facility] RESULTS us Provider Outside LAB - HIM EXTERNAL RESULT Final Result [facility] [address] [place] [address], [facility] [phone] from Last 3 Months or Most Recently Relevant to Health Maintenance Insurance [employer] Care Teams Infrastructure Technician Relationship Specialty Start Date End Date Andrew Tellez [address] [place] [address] PCP - General 08/19/18
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
--- OUTSIDE RECORDS SUMMARY | 2025-03-27 20:31 | XMS_ITS | Clinical Summary ---
Author Organization [employer] Address [address] [place] [address] Care Team Providers Care Software Packager Name Role Phone Andrew Tellez MD Primary Care Provider [phone] Source Comments You are receiving this document as you are listed as the primary care provider,follow-up provider, or the patient has been referred to you for consultation.This is in compliance with the Medicare and[facility] EHR Incentive Program,which states Providers who transition their patient to another setting of careor provider of care or refers their patient to another provider of care shouldprovide summary care record for each transition of care or referral. [facility] Allergies Active Allergy Reactions Criticality Noted Date Comments Bee Venom Anaphylaxis High 11/02/2014 Shellfish-Derived Products Anaphylaxis High 05/29/20 16 Medications * This document contains information received from the source organization and may not represent a complete record from that organization. AUVI-Q SOAJ Inject 0.3 mLs into the muscle as needed for Anaphylaxis . May Repeat 2 each 11 09/23/2013 Active methylergonovine (METHERGINE) 0.2 MG tablet Take 1 Tablet (0.2 mg) by mouth three times a day. 3 Tablet 01/04/2024 4:40 PM CDT 01/04/2024 Active Active Problems Problem Noted Date Diagnosed Date Intraductal papilloma 08/10/2022 Overview (08/10/2022): Added automatically from request for surgery [id number] PCOS (polycystic ovarian syndrome) 06/10/2021 Abnormal uterine [...] Significant OCD traits, r/o diagnosis of OCD Immunizations Immunization Administration Dates Next Due 4vHPV (Gardasil) 04/09/2007,10/04/2006, 6 DTP 01/30/2001, 4,05/27/1989,1988,01/28/1989 DTaP 01/30/2001, 4,05/27/1989,1988,01/28/1989 Flu Vac (3+ yrs) 06/13/2005,06/04/2004, 3 Flu Vac Preserv Free (3+yrs) 07/22/2010 HepA Ped/Adol (1-18 yrs) 07/28/2005,08/05/2003,1 HepB Ped/Adol (0-18 yrs) 08/23/1999,02/21/1999,0 01/21/1999 HepB, Unspecified Formulation 02/21/1999, 999 Influenza (Flucelvax), Prese rv Free QIV 06/28/2022 Influenza IIV4 (Quadrivalent ) 0.5mL (12807) 06/21/2021,06/18/2018,07/16/2017 Influenza, Unspecified Formulation 06/18/2018 MCV4 (Menactra) [...] Recor ded Last EPDS Total Score 9 09/30/2024 Last EPDS Self Harm Result Not on file 09/30 Comments No Sex and Gender Information Value Date Recorded Sex Assigned at Not on file Legal Sex Female 4:47 AM CDT Gender Identity Not on file Sexual Orientation Not on file 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 on file Not on file Not on file Last Filed Vital Signs Vital Sign Reading Time Taken Comments Blood Pressure 107/65 01/04/2024 4:10 PM CDT Pulse 78 01/04/2024 4:10 PM CDT Temperature 37.2 C (98.9 F) 01/04/2024 4:10 PM CDT Respiratory Rate 18 01/04/2024 4:10 PM CDT Oxygen Saturation 97% 01/04/2024 4:10 PM CDT Inhaled Oxygen Concentration - - Weight 88.5 kg (195 lb) 09/19/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 Height 165.1 cm (5' 5) 09/19/2022 9:20 AM DEPUTY JUVENILE OFFICER Body Mass Index 32.45 09/19/2022 9:20 AM DEPUTY JUVENILE OFFICER Plan of Treatment Health Maintenance Due Date Last Done Comments Hep C Screening (Preventive Services) 1988 Pneumococcal Vaccine (1 of 2 - PCV) 11/26/2007 Adult Preventive Visit 07/15/2020 07/15/2018, 2015 COVID-19 Vaccine ( season) 2024 05/04/2022, 07/04/2021, 10/21/2020, Additional history exists Asthma ACT (score of 20 or higher) 06/13/2024 06/13/2023, 03/20/2022, 06/02/2019, Additional history exists Influenza Vaccine (#1) 2025 , 06/28/2022, 06/21/2021, Additional history exists Cervical Cancer Screening 03/14/20272021, 03/14/2022, 07/15/2018, Additional history exists DTaP/Tdap/Td Vaccine (12 - Tdap) 12/09/2033 12/10/2023, 10/15/2023, 02/22/2015, Additional history exists Zoster/Shingles Vaccine (1 of 2) 2038 IPV (Polio) Vaccine Completed 09/05/1993, 03/30/1989, 01/28/1989 HepB Vaccine Completed 08/23/1999, 01/26, 02/21/1999, Additional history exists HepA Vaccine Completed 07/28/2005, 07/27, 06/07/2003 MCV4 Vaccine Completed 07/28/2005 HPV Vaccine Completed 04/09/2007, 03/2007, 08/02/2006 HIV Screening (Preventive Services) Completed 05/17/2023, 05/04/2023, 03/24/2014 (Completed) Hib Vaccine Aged Out No longer eligi ble based on patient's age to complete this topic Meningococcal B Vaccine Aged Out No l onger eligible based on patient's age to complete this topic Procedures Procedure Name Priority Date/Time Associated Diagnosis Comments HPV WITH 16 18 GENOTYPING, CERVICAL/ENDOCERVIC AL Routine 03/14/2022 4:20 PM CDT Cervical cancer screening from Last 3 Months or Most Recently Relevant to Health Maintenance Results * HPV with 16 18 Genotyping (03/14/2022 4:20 PM CDT) HPV High Risk Type 16 PCR Not Detected Not detected 03/17/2022 5:13 AM CDT [facility] HPV High Risk Type 18 PCR Not Detected Not Detected 03/17/2022 5:13 AM T [facility] HPV High Risk Other Than 16/18 Not Detected Not detected 03/17/2022 5:13 AM T [facility] Cervical Broom ENTIRE ENDOCERVIX / Unknown 03/14/2022 4:20 PM CDT 03/14/2022 4:35 PM CDT [facility] - 03/17/2022 5:13 AM CDT The [facility] HPV test is a qualitative in vitro test for the detection of Human Papillomavirus in [employer] patient specimens. The test utilizes amplification of target DNA by Polymerase Chain Reaction (PCR) and nucleic acid hybridization for the detection of 14 high-risk (HR) HPV types. The assay tests for high risk types (16, 18, 31, 33, 35, 39, 45, 51, 52, 56, 58, 59, 66, and 68). us Petrona Carvalho MD LAB_1 Final Result [id number] [place] [address] from Last 3 Months or Most Recently Relevant to Health Maintenance Insurance [employer] Advance Directives * Full Code (Latest Code Status on File) Date Activated Date Inactivated Comments 09/29/2022 12:33 PM 09/29/2022 4:25 PM Care Teams Software Packager Relationship Specialty Start Date End Date Andrew Tellez MD [address] [place] [address] PCP - General Family Practice 08/24/16
--- OUTSIDE RECORDS SUMMARY | 2025-03-27 20:31 | XMS_ITS | Encounter Summary ---
Author Organization [email or web address] Address [address], [place] [address] Care Team Providers Care Juice Tester Name Role Phone Andrew Tellez MD Primary Care Provider Encounter Details Date Type Department Care Team (Late st Contact Info) Description 03/25/2014 Scanned History External to Transferred Record, Provider TRANSFERRED RECORDS Social History Tobacco Use Types Packs/Day Years Used Date Smoking Tobacco: Never Assessed Comments No Sex and Gender Information Value [...] documented as of this encounter Care Teams Juice Tester Relationship Specialty Start Date End Date Andrew Tellez MD [address] [place] [address] PCP - General Family Practice 08/24/16 documented as of this encounter
[2025-03-27 20:37] VITALS: BP 128/76; PULSE 75; TEMP 36.1; O2SAT 18; BMI 29.1
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
--- NOTE | 2025-03-27 20:47 | CRLHL7_ITS ---
For Patients: As a result of the Century Cures Act, medical imaging exams and procedure reports are released immediately into your electronic medical record. You may view this report before your referring provider. If you have questions, please contact your health care provider. INDICATION: Trauma, attn 1st and 2nd digit and metatarsal, foot injury TECHNIQUE: Foot radiograph 3 views right 1st COMPARISON: None FINDINGS: Bone: No acute fractures or aggressive bone lesions are identified. Joint: The visualized hindfoot, midfoot, and forefoot joints are unremarkable in appearance. No significant ankle effusion is seen. Soft tissue: Unremarkable. No radiopaque foreign bodies are seen. IMPRESSION: 1. No acute osseous injuries or abnormalities are noted. Dictated by: Rory Liz MD @ 03/27/2025 21:25:23 (Electronically Signed)
--- NOTE | 2025-03-27 20:47 | CRLHL7_ITS ---
For Patients: As a result of the Century Cures Act, medical imaging exams and procedure reports are released immediately into your electronic medical record. You may view this report before your referring provider. If you have questions, please contact your health care provider. INDICATION: Trauma, tibia injury TECHNIQUE: Tibia-fibula radiograph 2 views right COMPARISON: None FINDINGS: Bone: No acute fractures or aggressive bone lesions are identified. The medial tibial plateau is partially excluded on the frontal view. Joint: The visualized knee and ankle joints are unremarkable. No significant joint effusion is seen. Soft tissue: Unremarkable. No radiopaque foreign bodies are seen. IMPRESSION: 1. No acute osseous injuries or abnormalities are noted. Dictated by: Rory Liz MD @ 03/27/2025 21:25:47 (Electronically Signed)
[2025-03-27 21:12] VITALS: TEMP 36.1
[2025-03-27] MEDS: IBUPROFEN 200 MG TABLET 600 MG PO (21:12)
[2025-03-27 22:10] VITALS: BP 118/70; PULSE 70; RESP 16; TEMP 36.7; O2SAT 98
== END 2025-03-27 23:30 | disposition home or self-care (01) ==
PROVIDERS: Emergency Provider Emergency Medicine
DX: M79.671 Pain in right foot (principal); W22.8XXA Striking against or struck by other objects, initial encounter
CPT/HCPCS: 73590; 73630; 99283; 99285; A9270

== ENCOUNTER 2025-07-21 03:58 | Emergency (ER) | payer OTHER, SELFPAY ==
--- OUTSIDE RECORDS SUMMARY | 2025-07-21 04:00 | XMS_ITS | Encounter Summary ---
Author Organization [employer] Address [address], [place] [address] Care Team Providers Care Garment Sorter Name Role Phone Andrew Tellez MD Primary [...] documented as of this encounter Care Teams Garment Sorter Relationship Specialty Start Date End Date Andrew Tellez MD [address] [place] [address] PCP - General Family Practice 08/24/16 documented as of this encounter
--- OUTSIDE RECORDS SUMMARY | 2025-07-21 04:00 | XMS_ITS | Clinical Summary ---
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 Gender Identity Not on file Sexual Orientation [...] 07/15/2019 07/15/2018 PHQ-2 (once per calendar year) 2024 DTAP/TDAP/TD VACCINE (8 - Td or Tdap) 02/22/2025 02/22/2015, 01/30/2001, 01/30/2001, Additional history exists COVID-19 VACCINE ( season) 2025 06/08/2023, 05/04/2022, 07/04/2021, Additional history exists INFLUENZA VACCINE (#1) 2025 [...] (External) 100 60 - 115 mg/dL [facility] Blood 05/11/2023 12:0 0 PM CDT Narrative [facility] - 05/11/2023 12:00 PM CDT [facility] RESULTS us Provider Outside LAB - HIM EXTERNAL RESULT Final Result [facility] [address] [place] [address], [facility] [phone] from Last 3 Months or Most Recently Relevant to Health Maintenance Insurance [employer] Care Teams Varnishing Unit Operator Relationship Specialty Start Date End Date Andrew Tellez [address] [place] [address] PCP - General 08/19/18
--- OUTSIDE RECORDS SUMMARY | 2025-07-21 04:00 | XMS_ITS | Encounter Summary ---
Author Organization [employer] Address [address], [place] [address] Care Team Providers Care Brazing Furnace Operator Name Role Phone Andrew Tellez MD [...] documented as of this encounter Care Teams Brazing Furnace Operator Relationship Specialty Start Date End Date Andrew Tellez MD [address] [place] [address] PCP - General Family Practice 08/24/16 documented as of this encounter
--- OUTSIDE RECORDS SUMMARY | 2025-07-21 04:00 | XMS_ITS | Clinical Summary ---
Author Organization [employer] Address [address] [place] [address] Care Team Providers Care Lock Setter Name Role Phone Unavailable Primary Care Provider Unavailabl e Allergies Active Allergy Reactions Criticality Noted Date [...] Active Problems Problem Noted Date Diagnosed Date [facility] Supervision of high-risk 3 Overview (07/24/2023): Oneida Tyler : 1990 [facility] ULTRASOUND/TESTING PATIENT Support person name: Dragger: No ULTRASOUND TYPE: L2 REASON FOR VISIT: [...] SPECIALISTS/CONSULTS: Include: Specialty MD Clinic Name Phone# II [place] and ADDED TO PATIENT CARE TEAM Yes Juna Coffey MD [facility], GENETICS: Declines/Not Done CARE COORDINATION: PERTINENT LABS: Labs reviewed? Yes Normal? Yes Blood type: A Rh Negative Antibody screen: Negative Non-[facility] labs need to be entered in [facility]? 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 [employer] Gender Identity Not on file Sexual Orientation [...] 05/23/2023 10:56 AM CDT Plan of Treatment Health Maintenance Due Date Last Done Comments Pap test for age 21-65 2009 BMI (ht and wt on same day) for age 18+ 05/23/2024 05/23/2023 Tetanus booster 02/22/2025 02/22/2015, 01/30/2001 Influenza Vaccine (#1) 2025 , 06/28/2022, 06/21/2021, Additional history exists Depression screening for age 12+ 04/24/2026 04/24/2025, 12/30/2024, 09/11/2024, Additional history exists RSV vaccine for adults or (1 - 1-dose 75+ series) 11/26/2063 Hepatitis B series for 19+ Completed 08/23, 02/21/1999, 01/21/1999 HPV series for age 9-45 Completed 04/09/20 07, 10/04/2006, 08/02/2006 HIV for age 15-65 Completed 05/04/2023 Hepatitis C screening for age 18-79 Completed 05/04/2023 Pneumococcal series for age 6-49 Aged Out [...] ve Non-React allan 05/07/2023 7:53 PM CDT [facility] Comment:Please note, per www [...] OUTS Final Resul t Performing Organization Address [facility] Co de Phone Number [facility] [address] [place] [phone], [place] * ANTI HIV 1/2 (05/04/2023 2:30 PM CDT) Pathologist [facility] HIV-1/HIV-2 SCREEN Non-Reacti ve Non-Reacti ve 05/05/2023 5:43 AM CDT [facility] Comment:HIV-1 p24 and HIV-1/ HIV-2 Ab Not Detected. Blood BLOOD SPECIMEN / Unknown Venipuncture / Unknown 05/04/2023 2:30 PM CDT 05/04/2023 2:30 PM CDT us Una Caldera MD SEND OUTS Final Resul t Performing Organization Address City/[facility]/ZIP Co de Phone Number [facility] [address] [place] [phone], from Last 3 Months or Most Recently Relevant to Health Maintenance Insurance [facility] ADVANTAGE PLAN [place]ED[place] [id number]
--- OUTSIDE RECORDS SUMMARY | 2025-07-21 04:00 | XMS_ITS | Clinical Summary ---
Author Organization [facility] Address [address] [address] Care Team Providers Care Athlete Marketing Agent Name Role Phone Andrew Tellez MD Primary Care Provider [phone] Source Comments You are receiving this document as you are listed as the primary care provider,follow-up provider, or the patient has been referred to you for consultation.This is in compliance with the Medicare and[facility] E[facility] Incentive Program,which states Providers who transition their patient to another setting of careor provider of care or refers their patient to another provider of care shouldprovide summary care record for each transition of care or referral. [facility] Allergies Active Allergy Reactions Criticality Noted Date Comments Bee Venom Anaphylaxis High 11/02/2014 Shellfish Protein-Containing Drug Products Anaphylaxis High 05/29/2016 Medications AUVI-Q SOAJ Inject 0.3 mLs into the muscle as needed for Anaphylaxis . May Repeat 2 each 11 09/23/2013 Active methylergonovine (METHERGINE) 0.2 MG tablet Take 1 Tablet (0.2 mg) by mouth three times a day. 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 Height 165.1 cm (5' 5) 09/19/2022 9:20 AM ICEBOX WORKER Body Mass Index 32.45 09/19/2022 9:20 AM ICEBOX WORKER Plan of Treatment Health Maintenance Due Date Last Done Comments Hep C Screening (Preventive Services) 1988 Pneumococcal Vaccine (1 of 2 - PCV) 11/26/2007 Adult Preventive Visit 07/15/2020 07/15/2018, 2015 Asthma ACT (score of 20 or higher) 06/13/2024 06/13/2023, 03/20/2022, 06/02/2019, Additional history exists COVID-19 Vaccine ( season) 2025 05/04/2022, 07/04/2021, 10/21/2020, Additional history exists Influenza Vaccine (#1) 2025 [...] Detected Not detected 03/17/2022 5:13 AM CDT [facility] HPV High Risk Type 18 PCR Not Detected Not Detected 03/17/2022 5:13 AM CDT [facility] HPV High Risk Other Than 16/18 Not Detected Not detected 03/17/2022 5:13 AM T [facility] Cervical Broom ENTIRE ENDOCERVIX / Unknown 03/14/2022 4:20 PM CDT 03/14/2022 4:35 PM CDT [facility] - 03/17/2022 5:13 AM CDT [facility] [...] us Petrona Carvalho MD LAB_1 Final Result [address] [address], [facility] [phone] from Last 3 Months or Most Recently Relevant to Health Maintenance Insurance S[employer] S[employer] Advance Directives * Full Code (Latest Code Status on File) Date Activated Date Inactivated Comments 09/29/2022 12:33 PM 09/29/2022 4:25 PM Care Teams Athlete Marketing Agent Relationship Specialty Start Date End Date Andrew Tellez MD [address] [place] [address] PCP - General Family Practice 12/29/16
[2025-07-21 04:04] VITALS: BP 119/68; PULSE 95; RESP 20; TEMP 36.9; O2SAT 92; BMI 31.8
[2025-07-21 04:40] LABS: Hematocrit* 37.7 % (33.0-51.0); Hemoglobin* 12.1 gm/dL (12.0-16.0); Immature Granulocytes Abs Auto 0.01 K/uL (0.00-0.30); Immature Granulocytes Pct Auto 0.2 %; Mean Corpuscular HGB Conc 32 gm/dL (32-36); Mean Corpuscular Hemoglobin 26 pg (26-34); Mean Corpuscular Volume 79 fL (80-100); RDW Coefficient of Variation % 14.4 % (11.5-15.5); Red Blood Count* 4.75 m/uL (4.00-5.20); White Blood Count* 6.40 K/uL (4.50-11.00)
[2025-07-21 04:43] LABS: Lymphocytes Absolute Auto 0.70 K/uL (0.90-2.90); Slide Review Reflex No
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
[2025-07-21 04:54] LABS: Albumin* 4.3 g/dL (3.3-5.0); Chloride* 104 mmol/L (96-114); Sodium* 134 mmol/L (135-149)
[2025-07-21 04:55] LABS: Potassium* 3.6 mmol/L (3.6-5.1)
[2025-07-21 04:57] LABS: Alanine Aminotransferase* 17 U/L (4-35); Alkaline Phosphatase* 68 U/L (40-150); Anion Gap 10 mEq/L (7-15); Aspartate Amino Transferase* 30 U/L (12-35); Bilirubin Total* 0.7 mg/dL (0.1-1.5); Blood Urea Nitrogen* 8 mg/dL (5-24); Carbon Dioxide* 20 mmol/L (20-32); Creatinine* 0.8 mg/dL (0.5-1.5); Est. Creatinine Clearance* 91.01; Estimated Glomerular Filt Rate 98 ml/min; Total Protein* 7.2 g/dL (6.0-8.3)
[2025-07-21 04:58] LABS: Calcium* 8.7 mg/dL (8.4-10.6); Glucose* 100 mg/dL (60-115)
[2025-07-21 05:03] LABS: Appearance Urine Cloudy (Clear)
[2025-07-21 05:21] LABS: Ur HCG Qualitative* Negative (Negative)
[2025-07-21] MEDS: ONDANSETRON 2 MG/ML inj 4 MG IVP (05:27)
--- NOTE | 2025-07-21 05:45 | CRLHL7_ITS ---
For Patients: As a result of the Century Cures Act, medical imaging exams and procedure reports are released immediately into your electronic medical record. You may view this report before your referring provider. If you have questions, please contact your health care provider. INDICATION: Abdominal pain, flank pain, diarrhea TECHNIQUE: CT abdomen and pelvis without contrast. COMPARISON: CT abdomen pelvis 07/04/2018 FINDINGS: Lower chest: Unremarkable. Liver: Unremarkable. Gallbladder and bile ducts: Cholelithiasis. No biliary ductal dilation. Pancreas: Unremarkable. Spleen: Unremarkable. Adrenal glands: There is a 0.7 centimeter left adrenal nodule (2/34), similar compared to 2018, likely adenoma. Kidneys: No hydronephrosis or nephrolithiasis. No evidence of ureteral stones. GI tract: No obstruction. Small hiatal hernia. Liquid stool in the colon. No evidence of significant bowel inflammation. Normal appendix. Vasculature: Abdominal aorta is normal in caliber. Lymph nodes: No lymphadenopathy. Peritoneum/Abdominal Wall: Tiny fat containing umbilical hernia. Pelvis: There is a likely dominant follicle in the right ovary. Incompletely distended bladder. Bones: Unremarkable for age. IMPRESSION: Liquid stool in the colon is consistent with history of diarrhea. Please note that all CT scans at this facility use dose modulation, iterative reconstruction, and/or weight-based dosing when appropriate to reduce radiation dose to as low as reasonably achievable. Dictated by Susan Jeong MD @ 07/21/2025 6:23:21 AM (Electronically Signed)
[2025-07-21 06:09] VITALS: PULSE 70; RESP 19; TEMP 36.9; O2SAT 93
== END 2025-07-21 06:57 | disposition home or self-care (01) ==
PROVIDERS: Emergency Provider Emergency Medicine
DX: R11.2 Nausea with vomiting, unspecified (principal); R19.7 Diarrhea, unspecified; R10.9 Unspecified abdominal pain
CPT/HCPCS: 36415; 74176; 80053; 81001; 81025; 83690; 85025; 87086; 93005; 94761; 96374; 96375; 99284; J1171; J1885; J2405; J7030